=== PATIENT | female | born 1975 | race Caucasian/White ===

== ENCOUNTER 2017-08-18 16:15 | Inpatient (IN) | payer OTHER, MEDICAID ==
--- NOTE | 2017-08-18 17:22 | DR.GENAD ---
HPI - PCP Primary Care Physician: DONY - Complaint/Symptoms Chief Complaint Doctors Comments: Patient has been under the care of a asset availability leader and a wound care physician for the care of her left foot. She presents today with concern of red streaking across the plantar surface of her foot today. She denies trauma and has been getting Chief Complaint:: PT C/O/ LT 5TH DIGIT WOUND WITH RED STREAKING. PT IS CONCERNED ABOUT HAVING STAPH INFECTION WITH THE STREAKING - Source History Provided: Patient - Mode of Arrival Mode of Arrival: Wheelchair - Timing Onset of Chief Complaint: 08/17/17 PMH - PMH Past Medical History: Yes Past Medical History: Anxiety, Depression, Migraines, Hypothyroidism Past Medical History Comment: SPINA BIFIDA, BIPOLAR, Past Surgical History: Yes Surgical History: Abdominal Surgery, Cholecystectomy, Ortho Surgery Past Surgical History Comment: EYE SURGERY, BACK SURGERY, COLOSTOMY, SHUNT IN BRAIN - Family History History of Family Medical Conditions: Yes Family Medical History: Diabetes Mellitus, Cancer, [place], Hypertension - Social History Does any household member use tobacco: No Alcohol Use: None Do you use any recreational Drugs:: No Lives With: Family Lives Where: Home - infectious screening In the last 2 months have you had wt loss of >10#?: NO Have you had fever, night sweats or hemotysis?: No Have you traveled outside the country in the last 6 months?: No Isolation: Standard ROS - Review of Systems Constitutional: negative: Diaphoresis Eyes: No Symptoms Reported ENTM: No Symptoms Reported Respiratoy: No Symptoms Reported Cardiovascular: No Symptoms Reported Gastrointestinal/Abdominal: No Symptoms Reported Genitourinary: No Symptoms Reported Neurological: No Symptoms Reported Musculoskeletal: No Symptoms Reported Integumentary: Lesions (ulcerative lesion lateral aspect of left 5tg dugut) Hematologic/Lymphatic: No Symptoms Reported Endocrine: No Symptoms Reported Psychiatric: No Symptoms Reported All Other Systems: Reviewed and Negative PE - Vital Signs Vitals: Temperature 97.7 F Pulse Rate 111 Respiratory Rate 20 Blood Pressure [Left Arm] 108/68 Blood Pressure [Right Arm] 112/69 Blood Pressure 119/66 O2 Sat by Pulse Oximetry 95 - General Limitations: No Limitations General Appearance: Alert, In No Apparent Distress - Head Head Exam: Normal Inspection, Atraumatic - Eyes Eye exam: Normal Appearance, PERRL, EOMI - ENT ENT Exam: Normal Exam, Normal Oropharynx External Ear Exam: Normal External Inspection TM/Canal Exam: Bilateral Normal Nose Exam: Normal Nose Exam Mouth Exam: Normal Inspection Throat Exam: Normal Inspection - Neck Neck Exam: Normal Inspection, Full ROM - Chest Chest Inspection: Normal Inspection - Respiratory Respiratory Exam: Normal Lung Sounds Bilat Respiratory Exam: Bilateral Clear to Auscultation - Cardiovascular Cardiovascular Exam: Regular Rate, Normal Rhythm - Abdominal Exam Abdominal Exam: Normal Inspection Abdominal Tenderness: negative: RUQ, RLQ, LUQ, LLQ, Epigastrium, Suprapubic, Diffuse, Mild, Moderate, Severe, Other - Extremities Extremities Exam: Normal Inspection, Full ROM - Back Back Exam: Other (spina bifida lumbar area) - Neurologic Neurological Exam: Alert, Oriented X3, CN II-XII Intact - Psychiatric Psychiatric Exam: Normal Affect, Normal Mood - Skin Skin Exam: Warm, Dry. negative: Intact (ulcerative lesion of lateral aspect of 5th ditia with erythematous streaking across the plantar surface of the foot.) Course - Treatment Treatment: Patient given clindamycin 900mg IV in the ED recommended admisson for further care. - Reevaluation 1st: Unchanged - Consultation Called: 19:00 (Dr Holloway agree to admit for further treatment) ROR - Labs Reviewed Laboratory Results Reviewed?: Yes (hypokalemia) Result Diagrams: 08/18/17 17:40 08/18/17 17:40 Laboratory: WBC 6.1 X10^3/uL (3.6-10.0) 08/18/17 17:40 RBC 4.49 X10^6/uL (3.5-5.4) 08/18/17 17:40 Hgb 9.2 g/dL (12.0-16.0) L 08/18/17 17:40 Hct 29.9 % (36.0-47.0) L 08/18/17 17:40 MCV 66.7 fL (80.0-100.0) L 08/18/17 17:40 MCH 20.5 pg (27.0-34.0) L 08/18/17 17:40 MCHC 30.7 g/dL (33.0-35.0) L 08/18/17 17:40 RDW 20.0 % (11.6-16.5) H 08/18/17 17:40 Plt Count 214 X10^3/uL (150.0-450.0) 08/18/17 17:40 Plt Count Comment Adequate (ADEQUATE) 08/18/17 17:40 MPV 11.4 fL (7.4-11.0) H 08/18/17 17:40 Neut % 65.3 % (42.0-75.0) 08/18/17 17:40 Lymph % 27.4 % (21.0-51.0) 08/18/17 17:40 [place] % 6.4 % (0.0-13.0) 08/18/17 17:40 Eos % 0.1 % (0.9-2.9) L 08/18/17 17:40 Baso % 0.8 % (0.2-1.0) 08/18/17 17:40 Neut # 4.0 x10^3/uL (2.2-4.8) 08/18/17 17:40 Lymph # 1.7 X10^3/uL (1.3-2.9) 08/18/17 17:40 [place] # 0.4 x10^3/uL (0.3-0.8) 08/18/17 17:40 Eos # 0.0 x10^3/uL (0.0-0.2) 08/18/17 17:40 Baso # 0.1 X10^3/uL (0.0-0.1) 08/18/17 17:40 Absolute Nucleated RBC 0.1 /100WBC 08/18/17 17:40 Giant Platelets Few 08/18/17 17:40 Plt Morphology Comment Abnormal (NORMAL) A 08/18/17 17:40 RBC Morphology Abnormal (NORMAL) A 08/18/17 17:40 Hypochromasia 2+ A 08/18/17 17:40 Microcytosis 1+ A 08/18/17 17:40 Sodium 142 mmol/L (136-145) 08/18/17 17:40 Corrected Sodium TNP 08/18/17 17:40 Potassium 2.9 mmol/L (3.5-5.1) L* 08/18/17 17:40 Chloride 110 mmol/L (98-107) H 08/18/17 17:40 Carbon Dioxide 19.1 mmol/L (21-32) L 08/18/17 17:40 BUN 13 mg/dL (7-18) 08/18/17 17:40 Creatinine 0.71 mg/dL (0.55-1.02) 08/18/17 17:40 Est GFR (MDRD) Af Amer > 60 (>60) 08/18/17 17:40 Est GFR (MDRD) Non-Af > 60 (>60) 08/18/17 17:40 Glucose 95 mg/dL (65-99) 08/18/17 17:40 Calcium 8.2 mg/dL (8.5-10.1) L 08/18/17 17:40 C-Reactive Protein 15.00 mg/L (0-3.0) H 08/18/17 17:40 - XRAY XRAY Interpreted by: Radiologist - Diagnosis Discharge Problem: Acute lymphangitis of foot, except toe, Hypokalemia - Discharge Plan Condition: Stable - Follow ups/Referrals Follow ups/Referrals: Chilo Christianson [Primary Care Provider] - 3 days - Instructions
[2017-08-18] MEDS ORDERED: CLEOCIN 300 MG IV PREMIX 300 MG/50 ML BAG IV ONE ×2 (17:24→17:27)
[2017-08-18] MEDS ORDERED: CLEOCIN 600 MG IV PREMIX 600 MG/50 ML BAG IV ONE (17:24)
[2017-08-18] MEDS ORDERED: NS 100 ML IV 100 ML IV ONE (17:27)
[2017-08-18] MEDS ORDERED: CLEOCIN VIAL 600 MG ONE (17:50)
[2017-08-18 18:02] LABS: BASOPHILS # (AUTO) 0.1 X10^3/uL (0.0-0.1); EOSINOPHILS % (AUTO) 0.1 % (0.9-2.9); MONOCYTES # (AUTO) 0.4 x10^3/uL (0.3-0.8)
[2017-08-18 18:13] LABS: BLOOD UREA NITROGEN 13 mg/dL (7-18); CALCIUM 8.2 mg/dL (8.5-10.1); CARBON DIOXIDE 19.1 mmol/L (21-32); CHLORIDE 110 mmol/L (98-107); CREATININE 0.71 mg/dL (0.55-1.02); SODIUM 142 mmol/L (136-145); eGFR BLACK RACES > 60 (>60); eGFR NON BLACK RACES > 60 (>60)
[2017-08-18 18:17] LABS: BASOPHILS % (AUTO) 0.8 % (0.2-1.0); HEMATOCRIT 29.9 % (36.0-47.0); HEMOGLOBIN 9.2 g/dL (12.0-16.0); LYMPHOCYTES # (AUTO) 1.7 X10^3/uL (1.3-2.9); LYMPHOCYTES % (AUTO) 27.4 % (21.0-51.0); MEAN CORPUSCULAR HEMOGLOBIN 20.5 pg (27.0-34.0); MEAN CORPUSCULAR HGB CONC 30.7 g/dL (33.0-35.0); MEAN CORPUSCULAR VOLUME 66.7 fL (80.0-100.0); MEAN PLATELET VOLUME 11.4 fL (7.4-11.0); MONOCYTES % (AUTO) 6.4 % (0.0-13.0); NEUTROPHILS % (AUTO) 65.3 % (42.0-75.0); PLATELET COUNT 214 X10^3/uL (150.0-450.0); RED BLOOD COUNT 4.49 X10^6/uL (3.5-5.4); WHITE BLOOD COUNT 6.1 X10^3/uL (3.6-10.0)
[2017-08-18 18:20] LABS: GIANT PLATELET FEW; PLATELET MORPHOLOGY COMMENT ABNORMAL (NORMAL)
[2017-08-18 18:21] LABS: HYPOCHROMASIA 2+; MICROCYTOSIS 1+
[2017-08-18] MEDS ORDERED: K-LYTE EFFERVESCENT PO STA (19:49)
[2017-08-18] MEDS ORDERED: K-LYTE EFFERVESCENT ONE (19:50)
[2017-08-18] MEDS ORDERED: NS 1000 ML 1,000 ML with POTASSIUM CHLORIDE INJ 20 MEQ VIAL 20 MEQ IV SCH ×2 (21:00)
[2017-08-18] MEDS: MORPHINE SULFATE INJ 2 MG INJ IVP PRN (21:42)
[2017-08-18] MEDS: NS + KCL 20 MEQ/L 1,000 ML IV SCH (22:23)
[2017-08-19 01:54] LABS: BILIRUBIN,URINE NEGATIVE (NEGATIVE); BLOOD/HEMOGLOBIN,URINE 1+ (NEGATIVE); GLUCOSE, URINE NEGATIVE (NEGATIVE); KETONES,URINE NEGATIVE (NEGATIVE); LEUKOCYTE ESTERASE ,URINE 1+ (NEGATIVE); NITRITES,URINE POSITIVE (NEGATIVE); PROTEIN,URINE 2+ (NEGATIVE); UROBILINOGEN,URINE 1+ (NORMAL)
[2017-08-19 02:02] LABS: APPEARANCE,URINE CLEAR (CLEAR); BACTERIA,URINE 3+ /HPF (NEGATIVE); COLOR,URINE YELLOW (YELLOW); SQUAMOUS EPITHELIAL CELL,UR FEW /HPF (NEGATIVE)
[2017-08-19 03:31] VITALS: BMI 45.1
[2017-08-19] MEDS: NS + KCL 20 MEQ/L 1,000 ML IV SCH ×3 (05:23→22:59)
[2017-08-19 05:30] LABS: BASOPHILS % (AUTO) 0.4 % (0.2-1.0); EOSINOPHILS % (AUTO) 0.1 % (0.9-2.9); HEMATOCRIT 26.3 % (36.0-47.0); LYMPHOCYTES # (AUTO) 1.5 X10^3/uL (1.3-2.9); LYMPHOCYTES % (AUTO) 29.8 % (21.0-51.0); MEAN CORPUSCULAR HGB CONC 30.3 g/dL (33.0-35.0); MEAN PLATELET VOLUME 10.6 fL (7.4-11.0); MONOCYTES # (AUTO) 0.4 x10^3/uL (0.3-0.8); MONOCYTES % (AUTO) 8.3 % (0.0-13.0); NEUTROPHILS % (AUTO) 61.4 % (42.0-75.0); PLATELET COUNT 204 X10^3/uL (150.0-450.0); RED BLOOD COUNT 3.99 X10^6/uL (3.5-5.4); RED CELL DISTRIBUTION WIDTH 19.6 % (11.6-16.5); WHITE BLOOD COUNT 4.9 X10^3/uL (3.6-10.0)
[2017-08-19 05:40] LABS: PLATELET MORPHOLOGY COMMENT NORMAL (NORMAL)
[2017-08-19 05:41] LABS: HYPOCHROMASIA 2+; MICROCYTOSIS 1+; OVALOCYTES PRESENT; POIKILOCYTOSIS 1+; TEAR DROP CELLS PRESENT
[2017-08-19 05:42] LABS: ALANINE AMINOTRANSFERASE 29 Units/L (12-78); ALBUMIN 2.8 g/dL (3.4-5.0); ALKALINE PHOSPHATASE 208 Units/L (46-116); ASPARTATE AMINO TRANSFERASE 19 Units/L (15-37); BLOOD UREA NITROGEN 11 mg/dL (7-18); CALCIUM 7.6 mg/dL (8.5-10.1); CARBON DIOXIDE 19.3 mmol/L (21-32); CHLORIDE 112 mmol/L (98-107); COR CA(FOR HYPOALB) 8.6 mg/dL (8.5-10.1); SODIUM 143 mmol/L (136-145); TOTAL PROTEIN 6.1 g/dL (6.4-8.2); eGFR BLACK RACES > 60 (>60); eGFR NON BLACK RACES > 60 (>60)
[2017-08-19] MEDS: MORPHINE SULFATE INJ 2 MG INJ IVP PRN ×2 (06:53→22:30)
[2017-08-19] MEDS: TEFLARO 600 MG in NS 50 ML IV 50 ML IV SCH ×2 (14:00→21:25)
[2017-08-19] MEDS ORDERED: PHENERGAN INJ 25 MG ONE (17:44)
[2017-08-19] MEDS: PHENERGAN INJ 25 MG IV PRN ×2 (17:50→23:50)
[2017-08-20] MEDS ORDERED: MORPHINE SULFATE INJ 2 MG INJ ONE ×2 (02:27→08:51)
[2017-08-20] MEDS: MORPHINE SULFATE INJ 2 MG INJ IVP PRN ×2 (02:40→09:00)
[2017-08-20 05:36] LABS: ALANINE AMINOTRANSFERASE 18 Units/L (12-78); ALBUMIN 2.5 g/dL (3.4-5.0); ALKALINE PHOSPHATASE 149 Units/L (46-116); ASPARTATE AMINO TRANSFERASE 12 Units/L (15-37); BLOOD UREA NITROGEN 8 mg/dL (7-18); CALCIUM 7.6 mg/dL (8.5-10.1); CARBON DIOXIDE 18.3 mmol/L (21-32); COR CA(FOR HYPOALB) 8.8 mg/dL (8.5-10.1); CREATININE 0.61 mg/dL (0.55-1.02); SODIUM 146 mmol/L (136-145); TOTAL PROTEIN 5.4 g/dL (6.4-8.2); eGFR BLACK RACES > 60 (>60); eGFR NON BLACK RACES > 60 (>60)
[2017-08-20 05:37] LABS: BASOPHILS % (AUTO) 0.4 % (0.2-1.0); EOSINOPHILS % (AUTO) 0.1 % (0.9-2.9); HEMATOCRIT 22.4 % (36.0-47.0); LYMPHOCYTES # (AUTO) 1.3 X10^3/uL (1.3-2.9); MEAN CORPUSCULAR HEMOGLOBIN 19.9 pg (27.0-34.0); MEAN CORPUSCULAR HGB CONC 30.2 g/dL (33.0-35.0); MEAN CORPUSCULAR VOLUME 65.8 fL (80.0-100.0); MEAN PLATELET VOLUME 10.8 fL (7.4-11.0); MONOCYTES # (AUTO) 0.3 x10^3/uL (0.3-0.8); MONOCYTES % (AUTO) 7.5 % (0.0-13.0); NEUTROPHILS # (AUTO) 2.6 x10^3/uL (2.2-4.8); PLATELET COUNT 220 X10^3/uL (150.0-450.0); RED BLOOD COUNT 3.41 X10^6/uL (3.5-5.4); RED CELL DISTRIBUTION WIDTH 19.5 % (11.6-16.5); WHITE BLOOD COUNT 4.2 X10^3/uL (3.6-10.0)
[2017-08-20 05:48] LABS: HEMOGLOBIN 6.8 g/dL (12.0-16.0)
[2017-08-20 05:51] LABS: CHLORIDE 118 mmol/L (98-107)
[2017-08-20 06:16] LABS: PLATELET MORPHOLOGY COMMENT NORMAL (NORMAL)
[2017-08-20 06:17] LABS: ANISOCYTOSIS SLIGHT; HYPOCHROMASIA 3+; MICROCYTOSIS 1+; POIKILOCYTOSIS SLIGHT
[2017-08-20] MEDS: NS + KCL 20 MEQ/L 1,000 ML IV SCH ×3 (06:52→23:20)
[2017-08-20] MEDS: PHENERGAN INJ 25 MG IV PRN ×2 (07:30→13:29)
[2017-08-20] MEDS: TEFLARO 600 MG in NS 50 ML IV 50 ML IV SCH ×2 (10:26→20:58)
[2017-08-20] MEDS ORDERED: ZOFRAN INJ 4 MG VIAL IVP PRN (11:13)
[2017-08-20] MEDS ORDERED: ZOFRAN INJ 4 MG VIAL ONE (11:14)
[2017-08-20] MEDS: ZINC SULFATE PO SCH (13:28)
[2017-08-20] MEDS: VITAMIN C PO SCH (13:28)
--- NOTE | 2017-08-20 14:26 | DR.H&P ---
H&P - History & Physical for Day of: H&P Date: 08/18/17 - Chief Complaint Chief Complaint: LEFT FOOT WOUND WITH INCREASED REDNESS AND SWELLING - Allergies Allergies/Adverse Reactions: Allergies Allergy/AdvReac Type Severity Reaction Status Date / Time Latex, Natural Rubber Allergy Verified 08/18/17 21:27 - Past Medical History Past Medical History: Anxiety, Depression, Migraines, Hypothyroidism - Past Surgical History Surgical History: Cholecystectomy, Ortho Surgery, Other - Family History Family Medical History: Diabetes Mellitus, Cancer, [place], Hypertension - Social History Does patient currently use any type of tobacco product: No Have you used tobacco products in the last 12 months: No Type of Tobacco Use: None Does any household member use tobacco: No Alcohol Use: None Drug Use: None - Medications Home Medications: Levothyroxine Sodium 100 mcg PO DAILY 08/18/17 [History Confirmed 08/18/17] Promethazine HCl 1 tab PO PRN PRN 08/18/17 [History Confirmed 08/18/17] Sumatriptan Succinate [Sumatriptan Succinate inj (VIAL)] 0.5 ml PRN PRN [History Confirmed 08/19/17] Tapentadol HCl [Nucynta] 150 mg PO BID 08/18/17 [History Confirmed 08/18/17] - Review of Systems Constitutional: Malaise Eyes: No Symptoms Reported ENT: No Symptoms Reported Respiratory: No Symptoms Reported Cardiovascular: No Symptoms Reported Gastrointestinal: No Symptoms Reported Genitourinary: Incontinence Musculoskeletal: Shoulder Pain, Back Pain Skin: Wound (LEFT FOOT) Neurological: Weakness - Physical Exam Vital Signs: Temperature 99.3 F Pulse Rate [Right Radial] 89 Pulse Rate 111 Respiratory Rate 20 Blood Pressure [Left Arm] 132/74 Blood Pressure [Right Arm] 109/59 Blood Pressure 119/66 O2 Sat by Pulse Oximetry 98 Oriented: Normal Eyes: Normal Ear: Normal Nose: Normal Throat: Normal Respiratory: Clear Throughout Cardiovascular: Normal, Edema : Normal Auscultation: Bowel Sounds: Normal Palpation: Normal Tenderness: Normal Skin: Wound (RIGHT HIP. LEFT FOOT) Musculoskeletal: Back:Lumbar, Motor Deficit, Sensory Deficit Psychiatric: Depression Mood Description: Flat Affect: Depressed, Flat Speech Pattern: Clear - Assessment/Plan (1) Infected ulcer of skin Status: Acute Plan: RIGHT HIP AND LEFT FOOT, IV ATBX THERAPY. BLOOD, URINE AND WOUND CULTURES. AM LABS, RESUME HOME MEDS. ELEVATE LLE (2) Infected stasis ulcer of left lower extremity Status: Acute (3) History of spina bifida Status: Acute (4) YVETTE (generalized anxiety disorder) Status: Chronic (5) Hypothyroidism Status: Chronic (6) MDD (major depressive disorder) Status: Chronic
--- NOTE | 2017-08-20 14:31 | PCM.PROG ---
Progress Note - Progress Note for Day of Date: 08/20/17 - Subjective Subjective: CO PAIN ALL OVER, DIDNT REST WELL LAST NIGHT. FAMILY MEMBER STATES PT HAS BEEN RESTLESS WITH CO PAIN. PT REFUSING SURGICAL CONSULT FOR DEBRIDEMENT ASSEMENT TO WOUND ON LLE, WOUND CULTURE PENDING. PT HAS UTI, WILL CONTINE CURRENT MEDICAITON REGIMEN AND RE-EVALUATE AFTER CULTURES. PT HGB 6.8, PLAN TO TYPE AND CROSS FOR TRANSFUSION ONE UNIT PRBC SLOW WITH CXR PRIOR TO INFUSION - Past Medical Family Social History Past Med/Fam/Surg Hx: No changes since H&P Allergies: Allergies Latex, Natural Rubber Allergy (Verified 08/18/17 21:27) - Review of Systems ROS: No change since H&P - Vital Signs and I&O's Vital Signs: Temperature 99.3 F Pulse Rate [Right Radial] 89 Pulse Rate 111 Respiratory Rate 20 Blood Pressure [Left Arm] 132/74 Blood Pressure [Right Arm] 109/59 Blood Pressure 119/66 O2 Sat by Pulse Oximetry 98 Intake and Output: Intake & Output 08/18/17 08/19/17 08/20/17 08/21/17 11:59 11:59 11:59 11:59 Intake Total 1025 2422 Output Total 700 Balance 1025 1722 - Physical Exam Oriented: Normal Eyes: Normal Ear: Normal Nose: Normal Throat: Normal Cardiovascular: Normal, Edema : Normal Auscultation: Bowel Sounds: Normal Tenderness: Normal Skin: Wound (RIGHT HIP, 3CM OVAL SHAPED SKIN ULCERATION WITH PURULENT DC, 2CM LEFT FOOT ULCERATION WITH LOCALIZED REDNESS AND RED STREAK FROM WOUND AROUND TO SOLE OF FOOT) Musculoskeletal: Back:Lumbar, Motor Deficit, Sensory Deficit Psychiatric: Depression Mood Description: Flat Affect: Depressed, Flat Speech Pattern: Clear - Laboratory and Diagnostics Result Diagrams: 08/20/17 04:35 08/20/17 04:35 Labs: 08/20/17 11:25 Hip - Right Gram Stain - Final 08/19/17 01:21 Urine,Catheterized Urine Culture - Preliminary 08/18/17 23:50 Foot - Left Gram Stain - Final 08/18/17 23:50 Foot - Left Wound Culture - Preliminary 08/18/17 17:45 Blood Blood Culture - Preliminary 08/18/17 17:40 Blood Blood Culture - Preliminary Laboratory WBC 4.2 X10^3/uL (3.6-10.0) 08/20/17 04:35 RBC 3.41 X10^6/uL (3.5-5.4) L 08/20/17 04:35 Hgb 6.8 g/dL (12.0-16.0) L* 08/20/17 04:35 Hct 22.4 % (36.0-47.0) L 08/20/17 04:35 MCV 65.8 fL (80.0-100.0) L 08/20/17 04:35 MCH 19.9 pg (27.0-34.0) L 08/20/17 04:35 MCHC 30.2 g/dL (33.0-35.0) L 08/20/17 04:35 RDW 19.5 % (11.6-16.5) H 08/20/17 04:35 Plt Count 220 X10^3/uL (150.0-450.0) 08/20/17 04:35 Plt Count Comment Adequate (ADEQUATE) 08/20/17 04:35 MPV 10.8 fL (7.4-11.0) 08/20/17 04:35 Neut % 62.0 % (42.0-75.0) 08/20/17 04:35 Lymph % 30.0 % (21.0-51.0) 08/20/17 04:35 [place] % 7.5 % (0.0-13.0) 08/20/17 04:35 Eos % 0.1 % (0.9-2.9) L 08/20/17 04:35 Baso % 0.4 % (0.2-1.0) 08/20/17 04:35 Neut # 2.6 x10^3/uL (2.2-4.8) 08/20/17 04:35 Lymph # 1.3 X10^3/uL (1.3-2.9) 08/20/17 04:35 [place] # 0.3 x10^3/uL (0.3-0.8) 08/20/17 04:35 Eos # 0.0 x10^3/uL (0.0-0.2) 08/20/17 04:35 Baso # 0.0 X10^3/uL (0.0-0.1) 08/20/17 04:35 Absolute Nucleated RBC 0.0 /100WBC 08/20/17 04:35 Giant Platelets Few 08/18/17 17:40 Plt Morphology Comment Normal (NORMAL) 08/20/17 04:35 RBC Morphology Abnormal (NORMAL) A 08/20/17 04:35 Hypochromasia 3+ A 08/20/17 04:35 Poikilocytosis Slight A 08/20/17 04:35 Anisocytosis Slight A 08/20/17 04:35 Microcytosis 1+ A 08/20/17 04:35 Tear Drop Cells Present 08/19/17 05:10 Ovalocytes Present 08/19/17 05:10 Sodium 146 mmol/L (136-145) H 08/20/17 04:35 Corrected Sodium TNP 08/20/17 04:35 Potassium 3.6 mmol/L (3.5-5.1) 08/20/17 04:35 Chloride 118 mmol/L (98-107) H* 08/20/17 04:35 Carbon Dioxide 18.3 mmol/L (21-32) L 08/20/17 04:35 BUN 8 mg/dL (7-18) 08/20/17 04:35 Creatinine 0.61 mg/dL (0.55-1.02) 08/20/17 04:35 Est GFR (MDRD) Af Amer > 60 (>60) 08/20/17 04:35 Est GFR (MDRD) Non-Af > 60 (>60) 08/20/17 04:35 Glucose 96 mg/dL (65-99) 08/20/17 04:35 Calcium 7.6 mg/dL (8.5-10.1) L 08/20/17 04:35 Corrected Calcium 8.8 mg/dL (8.5-10.1) 08/20/17 04:35 Total Bilirubin 0.20 mg/dL (0.2-1.0) 08/20/17 04:35 AST 12 Units/L (15-37) L 08/20/17 04:35 ALT 18 Units/L (12-78) 08/20/17 04:35 Alkaline Phosphatase 149 Units/L (46-116) H 08/20/17 04:35 C-Reactive Protein 15.00 mg/L (0-3.0) H 08/18/17 17:40 Total Protein 5.4 g/dL (6.4-8.2) L 08/20/17 04:35 Albumin 2.5 g/dL (3.4-5.0) L 08/20/17 04:35 Globulin 2.9 g/dL (2.5-4.5) 08/20/17 04:35 Albumin/Globulin Ratio 0.9 Ratio (1.1-2.1) L 08/20/17 04:35 Specimen Type Catherized urine 08/19/17 01:21 Urine Color Yellow (YELLOW) 08/19/17 01:21 Urine Appearance Clear (CLEAR) 08/19/17 01:21 Urine pH 6.0 (5.0 - 8.0) 08/19/17 01:21 Ur Specific [place] 1.020 (1.000-1.030) 08/19/17 01:21 Urine Protein 2+ (NEGATIVE) 08/19/17 01:21 Urine Glucose (UA) Negative (NEGATIVE) 08/19/17 01:21 Urine Ketones Negative (NEGATIVE) 08/19/17 01:21 Urine Occult Blood 1+ (NEGATIVE) 08/19/17 01:21 Urine Nitrite Positive (NEGATIVE) 08/19/17 01:21 Urine Bilirubin Negative (NEGATIVE) 08/19/17 01:21 Urine Urobilinogen 1+ (NORMAL) 08/19/17 01:21 Ur Leukocyte Esterase 1+ (NEGATIVE) 08/19/17 01:21 Urine RBC 2-5 /HPF (NEGATIVE) 08/19/17 01:21 Urine WBC 6-12 /HPF (NEGATIVE) 08/19/17 01:21 Ur Squamous Epith Cells Few /HPF (NEGATIVE) 08/19/17 01:21 Urine Bacteria 3+ /HPF (NEGATIVE) 08/19/17 01:21 Ur Culture Indicated? Yes/culture set up 08/19/17 01:21 - Plan (1) Infected ulcer of skin Status: Acute Plan: RIGHT HIP AND LEFT FOOT, IV ATBX THERAPY. BLOOD, URINE AND WOUND CULTURES PENDING. AM LABS, RESUME HOME MEDS. ELEVATE LLE, FOOT XRAY TODAY AND BILATERAL VENOUS DOPPLER (2) Infected stasis ulcer of left lower extremity Status: Acute (3) History of spina bifida Status: Acute (4) YVETTE (generalized anxiety disorder) Status: Chronic (5) Hypothyroidism Status: Chronic (6) MDD (major depressive disorder) Status: Chronic (7) UTI (urinary tract infection) Status: Acute Plan: URINE CULTURE PENDING, CONTINUE IV ATBX
--- NOTE | 2017-08-20 14:45 | RAD ---
Examination: Portable AP chest History: CHF Comparison reference 07/10/2014 Findings: Continued normal heart size.The lungs and pleural spaces are essentially clear. There is a surgical shunt tube projected over the right neck and right chest. There is a rounded retrocardiac de nsity present. Impression: No acute cardiopulmonary lesion evident. Retrocardiac density may represent hiatal hernia . This could be confirmed with additional imaging to exclude other etiology. Reported By:
[2017-08-20] MEDS: MORPHINE SULFATE INJ 4 MG IVP PRN (15:00)
--- NOTE | 2017-08-20 15:43 | RAD ---
Examination: Left foot, three views History: Cellulitis Findings: There is no evidence for osteomyelitis. There is marked soft tissue edema involving the low er leg, ankle and foot. There is a fracture involving the proximal phalanx of the 5th toe. This may b e subacute. No articular deformity is demonstrated. Impression: Marked nonspecific soft tissue swelling. There is no evidence for bone infection. Suspect fracture proximal phalanx 5th toe, correlate clinically. Reported By:
[2017-08-20] MEDS: NEURONTIN CAP 300 MG PO SCH ×2 (16:16→22:14)
[2017-08-20] MEDS: BUSPAR PO SCH ×2 (16:16→22:14)
--- NOTE | 2017-08-20 16:59 | VAS ---
HISTORY: Lower extremity edema. Study: Bilateral lower extremity ultrasound. Comparison: None available. TECHNIQUE: Multiple solis scale and color flow Doppler images of the deep venous system were obtained of the right and left lower extremity. FINDINGS: The deep venous system of the right and left lower extremities were evaluated from the level of the c ommon femoral vein through the popliteal vein. Occlusive clot is seen within right lower extremity fr om the proximal superficial femoral vein to the popliteal vein and within the left lower extremity fr om the mid superficial femoral vein to the popliteal vein. The bilateral common femoral veins and the left proximal superficial femoral vein demonstrate normal color flow and compression. IMPRESSION: Bilateral lower extremity occlusive clot as above. Reported By:
[2017-08-20 18:17] LABS: HEMATOCRIT 26.2 % (36.0-47.0); HEMOGLOBIN 7.9 g/dL (12.0-16.0)
[2017-08-20 19:13] LABS: IRON 14 ug/dL (50-175); TOTAL IRON BINDING CAPACITY 292 ug/dL (250-450); TRANSFERRIN 221 mg/dL (202-364)
[2017-08-20] MEDS: PROTONIX INJ 40 MG VIAL IVP SCH (20:58)
[2017-08-20] MEDS ORDERED: TAPENTADOL HCL 150 MG PO SCH (21:00)
[2017-08-20] MEDS: VISTARIL PO PRN (22:14)
[2017-08-21] MEDS: NS + KCL 20 MEQ/L 1,000 ML IV SCH ×4 (00:56→13:40)
[2017-08-21] MEDS: MORPHINE SULFATE INJ 4 MG IVP PRN (04:36)
[2017-08-21 06:06] LABS: BASOPHILS % (AUTO) 0.4 % (0.2-1.0); EOSINOPHILS % (AUTO) 0.1 % (0.9-2.9); HEMATOCRIT 23.7 % (36.0-47.0); HEMOGLOBIN 7.2 g/dL (12.0-16.0); LYMPHOCYTES # (AUTO) 1.6 X10^3/uL (1.3-2.9); LYMPHOCYTES % (AUTO) 35.4 % (21.0-51.0); MEAN CORPUSCULAR HGB CONC 30.5 g/dL (33.0-35.0); MEAN CORPUSCULAR VOLUME 65.7 fL (80.0-100.0); MONOCYTES # (AUTO) 0.3 x10^3/uL (0.3-0.8); MONOCYTES % (AUTO) 7.6 % (0.0-13.0); NEUTROPHILS # (AUTO) 2.5 x10^3/uL (2.2-4.8); NEUTROPHILS % (AUTO) 56.5 % (42.0-75.0); PLATELET COUNT 207 X10^3/uL (150.0-450.0); RED CELL DISTRIBUTION WIDTH 19.5 % (11.6-16.5); WHITE BLOOD COUNT 4.5 X10^3/uL (3.6-10.0)
[2017-08-21 06:08] LABS: ALANINE AMINOTRANSFERASE 16 Units/L (12-78); ALBUMIN 2.6 g/dL (3.4-5.0); ALKALINE PHOSPHATASE 137 Units/L (46-116); ASPARTATE AMINO TRANSFERASE 8 Units/L (15-37); BLOOD UREA NITROGEN 5 mg/dL (7-18); CALCIUM 7.7 mg/dL (8.5-10.1); CARBON DIOXIDE 16.3 mmol/L (21-32); COR CA(FOR HYPOALB) 8.8 mg/dL (8.5-10.1); CREATININE 0.55 mg/dL (0.55-1.02); SODIUM 145 mmol/L (136-145); TOTAL PROTEIN 5.6 g/dL (6.4-8.2); eGFR BLACK RACES > 60 (>60); eGFR NON BLACK RACES > 60 (>60)
[2017-08-21 06:14] LABS: CHLORIDE 117 mmol/L (98-107)
[2017-08-21 07:03] LABS: HYPOCHROMASIA 2+; MICROCYTOSIS 2+; PLATELET MORPHOLOGY COMMENT NORMAL (NORMAL)
[2017-08-21] MEDS ORDERED: PATIENT'S HOME MEDICATION (Dexlansoprazole [Dexilant] 60 MG) PO SCH (09:00)
[2017-08-21] MEDS ORDERED: PROTONIX TAB 40 MG PO SCH (09:00)
[2017-08-21] MEDS: SEROquel TAB 100 MG PO SCH (09:01)
[2017-08-21] MEDS: ZINC SULFATE PO SCH (09:03)
[2017-08-21] MEDS: PROTONIX INJ 40 MG VIAL IVP SCH ×2 (09:03→21:01)
[2017-08-21] MEDS: WELLBUTRIN XL 300 MG (DAILY) PO SCH (09:03)
[2017-08-21] MEDS: SYNTHROID 100 mcg TAB PO SCH (09:04)
[2017-08-21] MEDS: TEFLARO 600 MG in NS 50 ML IV 50 ML IV SCH (09:04)
[2017-08-21] MEDS: BUSPAR PO SCH ×2 (09:04→21:02)
[2017-08-21] MEDS: TOPAMAX TAB 100 MG PO SCH (09:04)
[2017-08-21] MEDS: VITAMIN C PO SCH (09:04)
[2017-08-21] MEDS: NEURONTIN CAP 300 MG PO SCH ×2 (09:15→21:02)
[2017-08-21] MEDS: PHENERGAN INJ 25 MG IV PRN (09:15)
[2017-08-21] MEDS: DIFLUNISAL 500 MG PO SCH (09:18)
[2017-08-21] MEDS ORDERED: NS 100 ML IV 100 ML with VENOFER 400 MG IV NR ×2 (10:00)
[2017-08-21] MEDS: GENTAMICIN INJ 120 MG in NS 100 ML IV 100 ML IV SCH ×2 (11:34→21:01)
[2017-08-21] MEDS ORDERED: PROMETHAZINE HCL PO PRN (13:31)
[2017-08-21 18:23] LABS: HEMOGLOBIN 7.4 g/dL (12.0-16.0)
[2017-08-21] MEDS: TEFLARO 600 MG in NS 100 ML IV + SPIKE MINIBAG* 100 ML IV SCH (21:00)
[2017-08-21] MEDS ORDERED: BUPROPION HCL 150 MG PO SCH (21:00)
[2017-08-21] MEDS: WELLBUTRIN XL 150 MG (DAILY) PO SCH (21:01)
[2017-08-21] MEDS: VISTARIL PO PRN (21:01)
[2017-08-21] MEDS: LOVENOX INJ 120 MG SYR SC SCH (21:02)
[2017-08-21] MEDS: PHARMACY CONSULT - DOSE _____ XX SCH (21:12)
[2017-08-22] MEDS: MORPHINE SULFATE INJ 4 MG IVP PRN ×2 (02:05→22:49)
[2017-08-22 04:50] LABS: ALANINE AMINOTRANSFERASE 15 Units/L (12-78); ALBUMIN 2.6 g/dL (3.4-5.0); ALKALINE PHOSPHATASE 130 Units/L (46-116); ASPARTATE AMINO TRANSFERASE 7 Units/L (15-37); BLOOD UREA NITROGEN 9 mg/dL (7-18); CALCIUM 7.6 mg/dL (8.5-10.1); CARBON DIOXIDE 18.1 mmol/L (21-32); COR CA(FOR HYPOALB) 8.7 mg/dL (8.5-10.1); CREATININE 0.79 mg/dL (0.55-1.02); SODIUM 146 mmol/L (136-145); TOTAL PROTEIN 5.7 g/dL (6.4-8.2); eGFR BLACK RACES > 60 (>60); eGFR NON BLACK RACES > 60 (>60)
[2017-08-22 05:06] LABS: CHLORIDE 117 mmol/L (98-107)
[2017-08-22 05:08] LABS: BASOPHILS % (AUTO) 0.4 % (0.2-1.0); HEMATOCRIT 23.6 % (36.0-47.0); HEMOGLOBIN 7.2 g/dL (12.0-16.0); LYMPHOCYTES # (AUTO) 1.5 X10^3/uL (1.3-2.9); LYMPHOCYTES % (AUTO) 24.6 % (21.0-51.0); MEAN CORPUSCULAR HEMOGLOBIN 19.8 pg (27.0-34.0); MEAN CORPUSCULAR HGB CONC 30.4 g/dL (33.0-35.0); MEAN CORPUSCULAR VOLUME 65.1 fL (80.0-100.0); MEAN PLATELET VOLUME 10.5 fL (7.4-11.0); MONOCYTES # (AUTO) 0.5 x10^3/uL (0.3-0.8); MONOCYTES % (AUTO) 7.9 % (0.0-13.0); NEUTROPHILS # (AUTO) 4.1 x10^3/uL (2.2-4.8); NEUTROPHILS % (AUTO) 67.1 % (42.0-75.0); PLATELET COUNT 226 X10^3/uL (150.0-450.0); RED BLOOD COUNT 3.62 X10^6/uL (3.5-5.4); WHITE BLOOD COUNT 6.1 X10^3/uL (3.6-10.0)
[2017-08-22 05:28] LABS: ANISOCYTOSIS 1+; HYPOCHROMASIA 3+; MICROCYTOSIS 1+; PLATELET MORPHOLOGY COMMENT NORMAL (NORMAL)
[2017-08-22] MEDS: NS + KCL 20 MEQ/L 1,000 ML IV SCH ×2 (06:03→10:05)
[2017-08-22] MEDS: GENTAMICIN INJ 120 MG in NS 100 ML IV 100 ML IV SCH ×2 (10:05→22:45)
[2017-08-22] MEDS: SEROquel TAB 100 MG PO SCH (10:05)
[2017-08-22] MEDS: NEURONTIN CAP 300 MG PO SCH ×2 (10:07→21:24)
[2017-08-22] MEDS: BUSPAR PO SCH ×2 (10:07→21:24)
[2017-08-22] MEDS: WELLBUTRIN XL 300 MG (DAILY) PO SCH (10:07)
[2017-08-22] MEDS: PHENERGAN TAB 25 MG PO PRN (10:08)
[2017-08-22] MEDS: ZINC SULFATE PO SCH (10:08)
[2017-08-22] MEDS: VITAMIN C PO SCH (10:08)
[2017-08-22] MEDS: SYNTHROID 100 mcg TAB PO SCH (10:08)
[2017-08-22] MEDS: TOPAMAX TAB 100 MG PO SCH (10:09)
[2017-08-22] MEDS: DIFLUNISAL 500 MG PO SCH (10:09)
[2017-08-22] MEDS: LOVENOX INJ 120 MG SYR SC SCH ×2 (10:12→21:25)
[2017-08-22] MEDS: PROTONIX INJ 40 MG VIAL IVP SCH ×2 (10:16→21:25)
[2017-08-22] MEDS ORDERED: LASIX IVP ONE (10:23)
[2017-08-22] MEDS: PHENERGAN INJ 25 MG IV PRN (11:53)
[2017-08-22] MEDS: TEFLARO 600 MG in NS 100 ML IV + SPIKE MINIBAG* 100 ML IV SCH ×2 (11:56→21:22)
[2017-08-22] MEDS ORDERED: DULCOLAX SUPPOSITORY 10 MG RECTAL ONE (13:07)
[2017-08-22] MEDS: WELLBUTRIN XL 150 MG (DAILY) PO SCH (21:24)
[2017-08-22] MEDS: PHARMACY COMMENT IV SCH ×3 (21:25→22:47)
[2017-08-23] MEDS: PHENERGAN INJ 25 MG IV PRN ×2 (00:40→09:00)
[2017-08-23] MEDS: GENTAMICIN INJ 120 MG in NS 100 ML IV 100 ML IV SCH ×2 (02:13→09:00)
[2017-08-23 06:23] LABS: BASOPHILS % (AUTO) 0.7 % (0.2-1.0); EOSINOPHILS % (AUTO) 0.1 % (0.9-2.9); HEMOGLOBIN 7.7 g/dL (12.0-16.0); LYMPHOCYTES # (AUTO) 1.7 X10^3/uL (1.3-2.9); LYMPHOCYTES % (AUTO) 34.3 % (21.0-51.0); MEAN CORPUSCULAR HGB CONC 30.8 g/dL (33.0-35.0); MEAN CORPUSCULAR VOLUME 64.9 fL (80.0-100.0); MONOCYTES # (AUTO) 0.3 x10^3/uL (0.3-0.8); MONOCYTES % (AUTO) 6.7 % (0.0-13.0); NEUTROPHILS # (AUTO) 2.9 x10^3/uL (2.2-4.8); NEUTROPHILS % (AUTO) 58.2 % (42.0-75.0); PLATELET COUNT 208 X10^3/uL (150.0-450.0); RED BLOOD COUNT 3.85 X10^6/uL (3.5-5.4); RED CELL DISTRIBUTION WIDTH 19.7 % (11.6-16.5)
[2017-08-23 06:37] LABS: ALANINE AMINOTRANSFERASE 13 Units/L (12-78); ALBUMIN 2.7 g/dL (3.4-5.0); ALKALINE PHOSPHATASE 125 Units/L (46-116); ASPARTATE AMINO TRANSFERASE 7 Units/L (15-37); BLOOD UREA NITROGEN 7 mg/dL (7-18); CALCIUM 7.9 mg/dL (8.5-10.1); CARBON DIOXIDE 18.6 mmol/L (21-32); CHLORIDE 114 mmol/L (98-107); COR CA(FOR HYPOALB) 8.9 mg/dL (8.5-10.1); CREATININE 0.69 mg/dL (0.55-1.02); SODIUM 146 mmol/L (136-145); TOTAL PROTEIN 5.8 g/dL (6.4-8.2); eGFR BLACK RACES > 60 (>60); eGFR NON BLACK RACES > 60 (>60)
[2017-08-23 07:15] LABS: ANISOCYTOSIS SLIGHT; HYPOCHROMASIA 2+; MICROCYTOSIS 2+; PLATELET MORPHOLOGY COMMENT NORMAL (NORMAL)
[2017-08-23] MEDS: NEURONTIN CAP 300 MG PO SCH ×2 (09:00→20:55)
[2017-08-23] MEDS: MORPHINE SULFATE INJ 4 MG IVP PRN ×2 (09:00→22:11)
[2017-08-23] MEDS: DIFLUNISAL 500 MG PO SCH (09:00)
[2017-08-23] MEDS: BUSPAR PO SCH ×2 (09:00→20:55)
[2017-08-23] MEDS: PROTONIX INJ 40 MG VIAL IVP SCH ×2 (09:00→20:54)
[2017-08-23] MEDS: LOVENOX INJ 120 MG SYR SC SCH ×2 (09:00→21:00)
[2017-08-23] MEDS: ZINC SULFATE PO SCH (09:00)
[2017-08-23] MEDS: SYNTHROID 100 mcg TAB PO SCH (09:00)
[2017-08-23] MEDS: WELLBUTRIN XL 300 MG (DAILY) PO SCH (09:00)
[2017-08-23] MEDS: SEROquel TAB 100 MG PO SCH (09:00)
[2017-08-23] MEDS: VITAMIN C PO SCH (09:00)
[2017-08-23] MEDS: TOPAMAX TAB 100 MG PO SCH (10:56)
[2017-08-23] MEDS: TEFLARO 600 MG in NS 100 ML IV + SPIKE MINIBAG* 100 ML IV SCH ×2 (10:58→20:54)
[2017-08-23] MEDS ORDERED: NS 100 ML IV 100 ML IV ONE (20:52)
[2017-08-23] MEDS ORDERED: GENTAMICIN INJ ONE (20:52)
[2017-08-23] MEDS: VISTARIL PO PRN (20:55)
[2017-08-23] MEDS: WELLBUTRIN XL 150 MG (DAILY) PO SCH (20:55)
[2017-08-23] MEDS: PHENERGAN TAB 25 MG PO PRN (22:03)
[2017-08-24 06:22] LABS: BASOPHILS % (AUTO) 0.5 % (0.2-1.0); HEMATOCRIT 26.3 % (36.0-47.0); LYMPHOCYTES # (AUTO) 1.5 X10^3/uL (1.3-2.9); LYMPHOCYTES % (AUTO) 29.7 % (21.0-51.0); MEAN CORPUSCULAR HEMOGLOBIN 20.4 pg (27.0-34.0); MEAN CORPUSCULAR HGB CONC 30.6 g/dL (33.0-35.0); MEAN CORPUSCULAR VOLUME 66.8 fL (80.0-100.0); MEAN PLATELET VOLUME 10.7 fL (7.4-11.0); MONOCYTES # (AUTO) 0.4 x10^3/uL (0.3-0.8); MONOCYTES % (AUTO) 7.5 % (0.0-13.0); NEUTROPHILS # (AUTO) 3.1 x10^3/uL (2.2-4.8); NEUTROPHILS % (AUTO) 62.3 % (42.0-75.0); PLATELET COUNT 212 X10^3/uL (150.0-450.0); RED BLOOD COUNT 3.93 X10^6/uL (3.5-5.4); RED CELL DISTRIBUTION WIDTH 20.3 % (11.6-16.5)
[2017-08-24 06:40] LABS: ALANINE AMINOTRANSFERASE 13 Units/L (12-78); ALBUMIN 2.8 g/dL (3.4-5.0); ALKALINE PHOSPHATASE 120 Units/L (46-116); ASPARTATE AMINO TRANSFERASE < 6 Units/L (15-37); BLOOD UREA NITROGEN 9 mg/dL (7-18); CALCIUM 7.9 mg/dL (8.5-10.1); CARBON DIOXIDE 18.6 mmol/L (21-32); CHLORIDE 113 mmol/L (98-107); COR CA(FOR HYPOALB) 8.9 mg/dL (8.5-10.1); CREATININE 0.81 mg/dL (0.55-1.02); SODIUM 146 mmol/L (136-145); TOTAL PROTEIN 5.9 g/dL (6.4-8.2); eGFR BLACK RACES > 60 (>60); eGFR NON BLACK RACES > 60 (>60)
[2017-08-24 07:04] LABS: PLATELET MORPHOLOGY COMMENT NORMAL (NORMAL)
[2017-08-24 07:05] LABS: ANISOCYTOSIS 1+; HYPOCHROMASIA 2+; MICROCYTOSIS 1+
[2017-08-24] MEDS: PHARMACY CONSULT - DOSE _____ XX SCH ×2 (07:14→08:35)
[2017-08-24 08:19] LABS: CREATININE 0.8 mg/dL (0.55-1.02)
[2017-08-24] MEDS: LOVENOX INJ 120 MG SYR SC SCH (08:36)
[2017-08-24] MEDS: SEROquel TAB 100 MG PO SCH (08:36)
[2017-08-24] MEDS: DIFLUNISAL 500 MG PO SCH (08:36)
[2017-08-24] MEDS: BUSPAR PO SCH ×2 (08:36→20:45)
[2017-08-24] MEDS: PROTONIX INJ 40 MG VIAL IVP SCH ×2 (08:36→20:51)
[2017-08-24] MEDS: NEURONTIN CAP 300 MG PO SCH ×2 (08:36→20:49)
[2017-08-24] MEDS: WELLBUTRIN XL 300 MG (DAILY) PO SCH (08:37)
[2017-08-24] MEDS: VITAMIN C PO SCH (08:37)
[2017-08-24] MEDS: ZINC SULFATE PO SCH (08:37)
[2017-08-24] MEDS: SYNTHROID 100 mcg TAB PO SCH (08:37)
[2017-08-24] MEDS: TOPAMAX TAB 100 MG PO SCH (08:37)
[2017-08-24] MEDS: TEFLARO 600 MG in NS 100 ML IV + SPIKE MINIBAG* 100 ML IV SCH ×2 (08:37→21:30)
[2017-08-24] MEDS: MORPHINE SULFATE INJ 4 MG IVP PRN ×2 (08:38→23:04)
[2017-08-24] MEDS: PHENERGAN INJ 25 MG IV PRN ×2 (08:39→18:24)
[2017-08-24 08:40] LABS: GENTAMICIN,TROUGH 2.3 ug/mL (0-1.9)
[2017-08-24] MEDS: GENTAMICIN INJ 120 MG in NS 100 ML IV 100 ML IV SCH (08:40)
[2017-08-24] MEDS ORDERED: PHARMACY CONSULT - DOSE _____ XX SCH (11:00)
[2017-08-24] MEDS: ELIQUIS PO SCH (20:46)
[2017-08-24] MEDS: WELLBUTRIN XL 150 MG (DAILY) PO SCH (20:50)
[2017-08-24] MEDS: GENTAMICIN INJ 100 MG in NS 100 ML IV 100 ML IV SCH (22:00)
[2017-08-25] MEDS: MORPHINE SULFATE INJ 4 MG IVP PRN ×5 (03:13→20:43)
[2017-08-25] MEDS: D5 1/2 NS + KCL 20 MEQ/L 1,000 ML IV SCH (03:16)
[2017-08-25 05:22] LABS: BASOPHILS % (AUTO) 0.5 % (0.2-1.0); HEMATOCRIT 26.5 % (36.0-47.0); LYMPHOCYTES # (AUTO) 1.1 X10^3/uL (1.3-2.9); LYMPHOCYTES % (AUTO) 26.4 % (21.0-51.0); MEAN CORPUSCULAR HEMOGLOBIN 20.5 pg (27.0-34.0); MEAN CORPUSCULAR HGB CONC 30.4 g/dL (33.0-35.0); MEAN CORPUSCULAR VOLUME 67.4 fL (80.0-100.0); MEAN PLATELET VOLUME 10.7 fL (7.4-11.0); MONOCYTES # (AUTO) 0.3 x10^3/uL (0.3-0.8); MONOCYTES % (AUTO) 7.9 % (0.0-13.0); NEUTROPHILS # (AUTO) 2.8 x10^3/uL (2.2-4.8); NEUTROPHILS % (AUTO) 65.2 % (42.0-75.0); PLATELET COUNT 206 X10^3/uL (150.0-450.0); RED BLOOD COUNT 3.93 X10^6/uL (3.5-5.4); RED CELL DISTRIBUTION WIDTH 20.4 % (11.6-16.5); WHITE BLOOD COUNT 4.3 X10^3/uL (3.6-10.0)
[2017-08-25 05:34] LABS: ALANINE AMINOTRANSFERASE 16 Units/L (12-78); ALBUMIN 2.9 g/dL (3.4-5.0); ALKALINE PHOSPHATASE 135 Units/L (46-116); ASPARTATE AMINO TRANSFERASE 11 Units/L (15-37); BLOOD UREA NITROGEN 9 mg/dL (7-18); CALCIUM 8.2 mg/dL (8.5-10.1); CARBON DIOXIDE 21.5 mmol/L (21-32); CHLORIDE 113 mmol/L (98-107); COR CA(FOR HYPOALB) 9.1 mg/dL (8.5-10.1); CREATININE 0.88 mg/dL (0.55-1.02); SODIUM 143 mmol/L (136-145); TOTAL PROTEIN 6.2 g/dL (6.4-8.2); eGFR BLACK RACES > 60 (>60); eGFR NON BLACK RACES > 60 (>60)
[2017-08-25 06:02] LABS: HYPOCHROMASIA 2+; PLATELET MORPHOLOGY COMMENT NORMAL (NORMAL)
[2017-08-25 06:03] LABS: ANISOCYTOSIS 1+; MICROCYTOSIS 1+
[2017-08-25] MEDS: BUSPAR PO SCH ×2 (08:00→20:42)
[2017-08-25] MEDS: ELIQUIS PO SCH ×2 (08:33→20:42)
[2017-08-25] MEDS: DIFLUNISAL 500 MG PO SCH (08:33)
[2017-08-25] MEDS: VITAMIN C PO SCH (08:34)
[2017-08-25] MEDS: TEFLARO 600 MG in NS 100 ML IV + SPIKE MINIBAG* 100 ML IV SCH ×2 (08:34→20:41)
[2017-08-25] MEDS: PROTONIX INJ 40 MG VIAL IVP SCH ×2 (08:34→20:43)
[2017-08-25] MEDS: TOPAMAX TAB 100 MG PO SCH (08:34)
[2017-08-25] MEDS: SEROquel TAB 100 MG PO SCH (08:34)
[2017-08-25] MEDS: NEURONTIN CAP 300 MG PO SCH ×2 (08:34→20:43)
[2017-08-25] MEDS: SYNTHROID 100 mcg TAB PO SCH (08:34)
[2017-08-25] MEDS: WELLBUTRIN XL 300 MG (DAILY) PO SCH (08:35)
[2017-08-25] MEDS: ZINC SULFATE PO SCH (08:35)
[2017-08-25] MEDS: PHENERGAN INJ 25 MG IV PRN ×2 (11:53→20:41)
[2017-08-25] MEDS: GENTAMICIN INJ 100 MG in NS 100 ML IV 100 ML IV SCH (20:41)
[2017-08-25] MEDS: WELLBUTRIN XL 150 MG (DAILY) PO SCH (20:42)
[2017-08-26] MEDS: D5 1/2 NS + KCL 20 MEQ/L 1,000 ML IV SCH ×2 (05:35→19:43)
[2017-08-26 06:01] LABS: BASOPHILS % (AUTO) 0.4 % (0.2-1.0); HEMATOCRIT 24.4 % (36.0-47.0); HEMOGLOBIN 7.5 g/dL (12.0-16.0); LYMPHOCYTES # (AUTO) 1.2 X10^3/uL (1.3-2.9); LYMPHOCYTES % (AUTO) 24.3 % (21.0-51.0); MEAN CORPUSCULAR HEMOGLOBIN 20.8 pg (27.0-34.0); MEAN CORPUSCULAR HGB CONC 30.9 g/dL (33.0-35.0); MEAN CORPUSCULAR VOLUME 67.4 fL (80.0-100.0); MEAN PLATELET VOLUME 10.7 fL (7.4-11.0); MONOCYTES # (AUTO) 0.4 x10^3/uL (0.3-0.8); MONOCYTES % (AUTO) 9.1 % (0.0-13.0); NEUTROPHILS # (AUTO) 3.3 x10^3/uL (2.2-4.8); NEUTROPHILS % (AUTO) 66.2 % (42.0-75.0); PLATELET COUNT 178 X10^3/uL (150.0-450.0); RED BLOOD COUNT 3.63 X10^6/uL (3.5-5.4)
[2017-08-26 06:17] LABS: ALANINE AMINOTRANSFERASE 18 Units/L (12-78); ALBUMIN 2.6 g/dL (3.4-5.0); ALKALINE PHOSPHATASE 121 Units/L (46-116); ASPARTATE AMINO TRANSFERASE 8 Units/L (15-37); BLOOD UREA NITROGEN 11 mg/dL (7-18); CALCIUM 7.8 mg/dL (8.5-10.1); CARBON DIOXIDE 19.6 mmol/L (21-32); CHLORIDE 114 mmol/L (98-107); COR CA(FOR HYPOALB) 8.9 mg/dL (8.5-10.1); SODIUM 144 mmol/L (136-145); TOTAL PROTEIN 5.7 g/dL (6.4-8.2); eGFR BLACK RACES > 60 (>60); eGFR NON BLACK RACES > 60 (>60)
[2017-08-26] MEDS: MORPHINE SULFATE INJ 4 MG IVP PRN ×3 (06:19→19:05)
[2017-08-26 07:03] LABS: HYPOCHROMASIA 2+; MICROCYTOSIS 1+; PLATELET MORPHOLOGY COMMENT NORMAL (NORMAL)
[2017-08-26] MEDS: PHENERGAN INJ 25 MG IV PRN ×2 (08:55→19:05)
[2017-08-26] MEDS: DIFLUNISAL 500 MG PO SCH (08:58)
[2017-08-26] MEDS: NEURONTIN CAP 300 MG PO SCH ×2 (08:58→20:21)
[2017-08-26] MEDS: BUSPAR PO SCH ×2 (08:58→20:21)
[2017-08-26] MEDS: ELIQUIS PO SCH ×2 (08:58→20:21)
[2017-08-26] MEDS: PROTONIX INJ 40 MG VIAL IVP SCH ×2 (08:58→20:21)
[2017-08-26] MEDS: VITAMIN C PO SCH (08:59)
[2017-08-26] MEDS: SEROquel TAB 100 MG PO SCH (08:59)
[2017-08-26] MEDS: TEFLARO 600 MG in NS 100 ML IV + SPIKE MINIBAG* 100 ML IV SCH ×2 (08:59→20:20)
[2017-08-26] MEDS: SYNTHROID 100 mcg TAB PO SCH (08:59)
[2017-08-26] MEDS: TOPAMAX TAB 100 MG PO SCH (08:59)
[2017-08-26] MEDS: ZINC SULFATE PO SCH (09:00)
[2017-08-26] MEDS: WELLBUTRIN XL 300 MG (DAILY) PO SCH (09:00)
[2017-08-26] MEDS: GENTAMICIN INJ 100 MG in NS 100 ML IV 100 ML IV SCH (20:20)
[2017-08-26] MEDS: WELLBUTRIN XL 150 MG (DAILY) PO SCH (20:21)
--- NOTE | 2017-08-26 21:28 | PCM.PROG ---
Progress Note - Progress Note for Day of Date: 08/25/17 - Subjective Subjective: WAS ADMITTED ON 08/18/17 WITH CELLULITIS AND A WOUND TO THE LEFT LOWER EXTREMITY, RIGHT HIP AREA, AND A URINARY TRACT INFECTIONS. WOUND CULTURES REPORT GROWTH OF STAPHYLOCOCCUS AUREUS TO THE RIGHT HIP, STAPHYLOCOCCUS AUREAS AND PSEUDOMONAS AERUGINOSA TO THE LEFT FOOT. URINE CULTURE REPORT GROWTH OF KLEBSIELLA PNEUMONIAE AND E.COLI. SHE HAS BEEN RECEIVING IV ANTIBIOTICS AND WAS ALSO STARTED ON ELIQUIS PO FOR A DVT TO THE LEFT LOWER EXTREMITY. TODAY, SHE IS ALERT AND ORIENTED, LYING IN BED ON MORNING ROUNDS. SHE CONTINUES OF COMPLAINTS OF BILATERAL LOWER EXTREMITY PAIN. ON EXAMINATION, HEART IS REGULAR IN RATE AND RHYTHM. LUNGS ARE CLEAR THROUGHOUT. ABDOMEN IS ROUND, SOFT, AND NON-TENDER WITH NORMAL BOWEL SOUNDS NOTED IN ALL QUADRANTS. BILATERAL LOWER EXTREMITIES ARE NOTED WITH EDEMA. THERE IS REDNESS NOTED TO THE LEFT FOOT. DRESSING TO RIGHT HIP IS DRY AND INTACT. HER VITAL SIGNS THIS MORNING ARE 98.3-99-20-98%-136/65. ABNORMAL LAB VALUES INCLUDE THE FOLLOWING: HGB 8.0, HCT 26.5, CHLORIDE 113, CALCIUM 8.2, AST 11, ALK PHOS 135, TOTAL PROTEIN 6.2, ALBUMIN 2.9. TODAY, WE WILL CONTINUE WITH IV ANTIBIOTICS AND CURRENT PLAN OF CARE. WE PLAN TO FOLLOW UP WITH AM LABS AND CONTINUE TO MONITOR PATIENT. - Past Medical Family Social History Past Med/Fam/Surg Hx: No changes since H&P Allergies: Allergies Latex, Natural Rubber Allergy (Verified 08/18/17 21:27) - Review of Systems ROS: No change since H&P - Vital Signs and I&O's Vital Signs: Temperature 98.3 F Pulse Rate [Left Brachial] 93 Pulse Rate [Right Radial] 102 Pulse Rate 111 Respiratory Rate 20 Blood Pressure [Left Arm] 109/51 Blood Pressure [Right Arm] 113/53 Blood Pressure 119/66 O2 Sat by Pulse Oximetry 100 Intake and Output: Intake & Output 08/24/17 08/25/17 08/26/17 08/27/17 11:59 11:59 11:59 11:59 Intake Total 1345 2220 2240 560 Output Total 600 2065 750 Balance 1345 1620 175 -190 - Physical Exam Oriented: Normal Eyes: Normal Ear: Normal Nose: Normal Throat: Normal Cardiovascular: Normal, Edema : Normal Auscultation: Bowel Sounds: Normal Palpation: Normal Tenderness: Normal Skin: Wound (RIGHT HIP, 3CM OVAL SHAPED SKIN ULCERATION WITH PURULENT DC, 2CM LEFT FOOT ULCERATION WITH LOCALIZED REDNESS AND RED STREAK FROM WOUND AROUND TO SOLE OF FOOT) Musculoskeletal: Back:Lumbar, Motor Deficit, Sensory Deficit Psychiatric: Depression Mood Description: Flat Affect: Depressed, Flat Speech Pattern: Clear, Appropriate - Laboratory and Diagnostics Result Diagrams: 08/26/17 03:48 08/26/17 03:48 Labs: 08/18/17 17:45 Blood Blood Culture - Final 08/18/17 17:40 Blood Blood Culture - Final 08/20/17 11:25 Hip - Right Gram Stain - Final 08/20/17 11:25 Hip - Right Wound Culture - Final Staphylococcus Aureus 08/19/17 01:21 Urine,Catheterized Urine Culture - Final Klebsiella Pneumoniae Escherichia Coli 08/18/17 23:50 Foot - Left Gram Stain - Final 08/18/17 23:50 Foot - Left Wound Culture - Final Staphylococcus Aureus Pseudomonas Aeruginosa Laboratory WBC 5.0 X10^3/uL (3.6-10.0) 08/26/17 03:48 RBC 3.63 X10^6/uL (3.5-5.4) 08/26/17 03:48 Hgb 7.5 g/dL (12.0-16.0) L 08/26/17 03:48 Hct 24.4 % (36.0-47.0) L 08/26/17 03:48 MCV 67.4 fL (80.0-100.0) L 08/26/17 03:48 MCH 20.8 pg (27.0-34.0) L 08/26/17 03:48 MCHC 30.9 g/dL (33.0-35.0) L 08/26/17 03:48 RDW 20.0 % (11.6-16.5) H 08/26/17 03:48 Plt Count 178 X10^3/uL (150.0-450.0) 08/26/17 03:48 Plt Count Comment Adequate (ADEQUATE) 08/26/17 03:48 MPV 10.7 fL (7.4-11.0) 08/26/17 03:48 Neut % 66.2 % (42.0-75.0) 08/26/17 03:48 Lymph % 24.3 % (21.0-51.0) 08/26/17 03:48 [place] % 9.1 % (0.0-13.0) 08/26/17 03:48 Eos % 0.0 % (0.9-2.9) L 08/26/17 03:48 Baso % 0.4 % (0.2-1.0) 08/26/17 03:48 Neut # 3.3 x10^3/uL (2.2-4.8) 08/26/17 03:48 Lymph # 1.2 X10^3/uL (1.3-2.9) L 08/26/17 03:48 [place] # 0.4 x10^3/uL (0.3-0.8) 08/26/17 03:48 Eos # 0.0 x10^3/uL (0.0-0.2) 08/26/17 03:48 Baso # 0.0 X10^3/uL (0.0-0.1) 08/26/17 03:48 Absolute Nucleated RBC 0.1 /100WBC 08/26/17 03:48 Giant Platelets Few 08/18/17 17:40 Plt Morphology Comment Normal (NORMAL) 08/26/17 03:48 RBC Morphology Abnormal (NORMAL) A 08/26/17 03:48 Hypochromasia 2+ A 08/26/17 03:48 Poikilocytosis Slight A 08/20/17 04:35 Anisocytosis 1+ A 08/25/17 04:00 Microcytosis 1+ A 08/26/17 03:48 Tear Drop Cells Present 08/19/17 05:10 Ovalocytes Present 08/19/17 05:10 Sodium 144 mmol/L (136-145) 08/26/17 03:48 Corrected Sodium TNP 08/26/17 03:48 Potassium 3.9 mmol/L (3.5-5.1) 08/26/17 03:48 Chloride 114 mmol/L (98-107) H 08/26/17 03:48 Carbon Dioxide 19.6 mmol/L (21-32) L 08/26/17 03:48 BUN 11 mg/dL (7-18) 08/26/17 03:48 Creatinine 0.90 mg/dL (0.55-1.02) 08/26/17 03:48 Est GFR (MDRD) Af Amer > 60 (>60) 08/26/17 03:48 Est GFR (MDRD) Non-Af > 60 (>60) 08/26/17 03:48 Glucose 97 mg/dL (65-99) 08/26/17 03:48 Calcium 7.8 mg/dL (8.5-10.1) L 08/26/17 03:48 Corrected Calcium 8.9 mg/dL (8.5-10.1) 08/26/17 03:48 Iron 14 ug/dL (50-175) L 08/20/17 04:35 TIBC 292 ug/dL (250-450) 08/20/17 04:35 Transferrin 221 mg/dL (202-364) 08/20/17 04:35 Ferritin 6 ng/mL (8-252) L 08/20/17 04:35 Total Bilirubin 0.10 mg/dL (0.2-1.0) L 08/26/17 03:48 AST 8 Units/L (15-37) L 08/26/17 03:48 ALT 18 Units/L (12-78) 08/26/17 03:48 Alkaline Phosphatase 121 Units/L (46-116) H 08/26/17 03:48 C-Reactive Protein 15.00 mg/L (0-3.0) H 08/18/17 17:40 Total Protein 5.7 g/dL (6.4-8.2) L 08/26/17 03:48 Albumin 2.6 g/dL (3.4-5.0) L 08/26/17 03:48 Globulin 3.1 g/dL (2.5-4.5) 08/26/17 03:48 Albumin/Globulin Ratio 0.8 Ratio (1.1-2.1) L 08/26/17 03:48 Vitamin B12 254 pg/mL (193-986) 08/20/17 04:35 Folate > 20.0 ng/mL (>8.6) 08/20/17 04:35 Specimen Type Catherized urine 08/19/17 01:21 Urine Color Yellow (YELLOW) 08/19/17 01:21 Urine Appearance Clear (CLEAR) 08/19/17 01:21 Urine pH 6.0 (5.0 - 8.0) 08/19/17 01:21 Ur Specific [place] 1.020 (1.000-1.030) 08/19/17 01:21 Urine Protein 2+ (NEGATIVE) 08/19/17 01:21 Urine Glucose (UA) Negative (NEGATIVE) 08/19/17 01:21 Urine Ketones Negative (NEGATIVE) 08/19/17 01:21 Urine Occult Blood 1+ (NEGATIVE) 08/19/17 01:21 Urine Nitrite Positive (NEGATIVE) 08/19/17 01:21 Urine Bilirubin Negative (NEGATIVE) 08/19/17 01:21 Urine Urobilinogen 1+ (NORMAL) 08/19/17 01:21 Ur Leukocyte Esterase 1+ (NEGATIVE) 08/19/17 01:21 Urine RBC 2-5 /HPF (NEGATIVE) 08/19/17 01:21 Urine WBC 6-12 /HPF (NEGATIVE) 08/19/17 01:21 Ur Squamous Epith Cells Few /HPF (NEGATIVE) 08/19/17 01:21 Urine Bacteria 3+ /HPF (NEGATIVE) 08/19/17 01:21 Ur Culture Indicated? Yes/culture set up 08/19/17 01:21 Stool Description 100g soft brn 08/22/17 22:00 Stl Occult Blood (IFOB) Negative (NEGATIVE) 08/22/17 22:00 Gentamicin Trough 2.3 ug/mL (0-1.9) H 08/24/17 07:40 Blood Type O NEGATIVE 08/20/17 13:24 Antibody Screen Negative 08/20/17 13:24 Crossmatch See Detail 08/20/17 13:24 - Plan (1) Acute lymphangitis of foot, except toe Status: Acute Plan: CONTINUE IV ANTIBIOTICS, CONTINUE WOUND CARE, CONTINUE TO MONITOR (2) Infected stasis ulcer of left lower extremity Status: Acute Plan: CONTINUE IV ANTIBIOTICS, CONTINUE WOUND CARE, CONTINUE TO MONITOR (3) UTI (urinary tract infection) Status: Acute Qualifiers: Urinary tract infection type: acute cystitis Hematuria presence: with hematuria Qualified Code(s): N30.01 - Acute cystitis with hematuria Plan: CONTINUE IV ATBX, CONTINUE TO MONITOR
[2017-08-27 04:47] LABS: BASOPHILS % (AUTO) 0.7 % (0.2-1.0); HEMATOCRIT 30.1 % (36.0-47.0); LYMPHOCYTES # (AUTO) 1.7 X10^3/uL (1.3-2.9); LYMPHOCYTES % (AUTO) 26.2 % (21.0-51.0); MEAN CORPUSCULAR HEMOGLOBIN 20.6 pg (27.0-34.0); MEAN CORPUSCULAR HGB CONC 29.7 g/dL (33.0-35.0); MEAN CORPUSCULAR VOLUME 69.5 fL (80.0-100.0); MEAN PLATELET VOLUME 10.2 fL (7.4-11.0); MONOCYTES # (AUTO) 0.6 x10^3/uL (0.3-0.8); MONOCYTES % (AUTO) 9.9 % (0.0-13.0); NEUTROPHILS # (AUTO) 4.1 x10^3/uL (2.2-4.8); NEUTROPHILS % (AUTO) 63.2 % (42.0-75.0); PLATELET COUNT 202 X10^3/uL (150.0-450.0); RED BLOOD COUNT 4.34 X10^6/uL (3.5-5.4); RED CELL DISTRIBUTION WIDTH 20.7 % (11.6-16.5); WHITE BLOOD COUNT 6.4 X10^3/uL (3.6-10.0)
[2017-08-27 05:05] LABS: ALANINE AMINOTRANSFERASE 21 Units/L (12-78); ALKALINE PHOSPHATASE 134 Units/L (46-116); ASPARTATE AMINO TRANSFERASE 13 Units/L (15-37); BLOOD UREA NITROGEN 13 mg/dL (7-18); CALCIUM 8.2 mg/dL (8.5-10.1); CARBON DIOXIDE 18.7 mmol/L (21-32); CHLORIDE 110 mmol/L (98-107); CREATININE 0.88 mg/dL (0.55-1.02); SODIUM 142 mmol/L (136-145); TOTAL PROTEIN 6.8 g/dL (6.4-8.2); eGFR BLACK RACES > 60 (>60); eGFR NON BLACK RACES > 60 (>60)
[2017-08-27 05:17] LABS: ANISOCYTOSIS 1+; HYPOCHROMASIA 2+; MICROCYTOSIS 1+; PLATELET MORPHOLOGY COMMENT NORMAL (NORMAL)
[2017-08-27] MEDS: MORPHINE SULFATE INJ 4 MG IVP PRN ×3 (06:02→23:27)
[2017-08-27] MEDS: PHENERGAN INJ 25 MG IV PRN ×3 (06:03→23:28)
[2017-08-27] MEDS: DIFLUNISAL 500 MG PO SCH (09:09)
[2017-08-27] MEDS: PROTONIX INJ 40 MG VIAL IVP SCH ×2 (09:09→20:42)
[2017-08-27] MEDS: SEROquel TAB 100 MG PO SCH (09:10)
[2017-08-27] MEDS: TOPAMAX TAB 100 MG PO SCH (09:10)
[2017-08-27] MEDS: ZINC SULFATE PO SCH (09:10)
[2017-08-27] MEDS: VITAMIN C PO SCH (09:10)
[2017-08-27] MEDS: BUSPAR PO SCH ×2 (09:10→20:42)
[2017-08-27] MEDS: SYNTHROID 100 mcg TAB PO SCH (09:11)
[2017-08-27] MEDS: WELLBUTRIN XL 300 MG (DAILY) PO SCH (09:11)
[2017-08-27] MEDS: ELIQUIS PO SCH (09:11)
[2017-08-27] MEDS: NEURONTIN CAP 300 MG PO SCH ×2 (09:12→20:42)
[2017-08-27] MEDS: TEFLARO 600 MG in NS 100 ML IV + SPIKE MINIBAG* 100 ML IV SCH ×2 (09:12→20:41)
[2017-08-27] MEDS ORDERED: DEMEROL INJ IVP PRN (09:51)
[2017-08-27] MEDS: D5 1/2 NS + KCL 20 MEQ/L 1,000 ML IV SCH (14:00)
[2017-08-27 14:13] LABS: HEMOGLOBIN 7.9 g/dL (12.0-16.0)
[2017-08-27 19:43] LABS: CREATININE 0.9 mg/dL (0.55-1.02); GENTAMICIN,TROUGH 0.4 ug/mL (0-1.9)
[2017-08-27] MEDS: WELLBUTRIN XL 150 MG (DAILY) PO SCH (20:42)
[2017-08-27] MEDS: GENTAMICIN INJ 100 MG in NS 100 ML IV 100 ML IV SCH (20:42)
[2017-08-27] MEDS ORDERED: PHARMACY COMMENT IV SCH (20:45)
--- NOTE | 2017-08-27 21:07 | PCM.PROG ---
Progress Note - Progress Note for Day of Date: 08/26/17 - Subjective Subjective: WAS ADMITTED ON 08/18/17 WITH CELLULITIS AND A WOUND TO THE LEFT LOWER EXTREMITY, RIGHT HIP AREA, AND A URINARY TRACT INFECTIONS. WOUND CULTURES REPORTED GROWTH OF STAPHYLOCOCCUS AUREUS TO THE RIGHT HIP, STAPHYLOCOCCUS AUREAS AND PSEUDOMONAS AERUGINOSA TO THE LEFT FOOT. URINE CULTURE REPORTED GROWTH OF KLEBSIELLA PNEUMONIAE AND E.COLI. SHE HAS BEEN RECEIVING IV ANTIBIOTICS AND WAS ALSO STARTED ON ELIQUIS PO FOR A DVT TO THE LEFT LOWER EXTREMITY. TODAY, SHE IS ALERT AND ORIENTED, SITTING UP IN BED ON MORNING ROUNDS. SHE CONTINUES OF COMPLAINTS OF BILATERAL LOWER EXTREMITY PAIN. ON EXAMINATION, HEART IS REGULAR IN RATE AND RHYTHM. LUNGS ARE CLEAR THROUGHOUT. ABDOMEN IS ROUND, SOFT, AND NON-TENDER WITH NORMAL BOWEL SOUNDS NOTED IN ALL QUADRANTS. REDNESS AND EDEMA CONTINUE TO BILATERAL LOWER EXTREMITIES. DRESSING TO RIGHT HIP IS DRY AND INTACT. HER VITAL SIGNS THIS MORNING ARE 98.7-92-20-99%-116/55. ABNORMAL LAB VALUES INCLUDE THE FOLLOWING: HGB 7.5, HCT 24.4, CHLORIDE 114, CARBON DIOXIDE 19.6, CALCIUM 7.8, AST 8, ALK PHOS 121, TOTAL PROTEIN 5.7, ALBUMIN 2.6. TODAY, WE WILL CONTINUE WITH IV ANTIBIOTICS AND CURRENT PLAN OF CARE. WE PLAN TO FOLLOW UP WITH AM LABS AND CONTINUE TO MONITOR PATIENT. WE WILL MONITOR H&H AND TRANSFUSE IF HGB FALLS BELOW 7.0. - Past Medical Family Social History Past Med/Fam/Surg Hx: No changes since H&P Allergies: Allergies Latex, Natural Rubber Allergy (Verified 08/18/17 21:27) - Review of Systems ROS: No change since H&P - Vital Signs and I&O's Vital Signs: Temperature 98.6 F Pulse Rate [Left Brachial] 92 Pulse Rate [Right Radial] 102 Pulse Rate 111 Respiratory Rate 20 Blood Pressure [Left Arm] 128/69 Blood Pressure [Right Arm] 107/51 Blood Pressure 119/66 O2 Sat by Pulse Oximetry 97 Intake and Output: Intake & Output 08/25/17 08/26/17 08/27/17 08/28/17 11:59 11:59 11:59 11:59 Intake Total 2220 2240 2655 1840 Output Total 600 2065 1525 800 Balance 0546 273 3514 1040 - Physical Exam Oriented: Normal Eyes: Normal Ear: Normal Nose: Normal Throat: Normal Respiratory: Normal Cardiovascular: Normal, Edema : Normal Auscultation: Bowel Sounds: Normal Palpation: Normal Tenderness: Normal Skin: Wound (RIGHT HIP, 3CM OVAL SHAPED SKIN ULCERATION WITH PURULENT DC, 2CM LEFT FOOT ULCERATION WITH LOCALIZED REDNESS AND RED STREAK FROM WOUND AROUND TO SOLE OF FOOT) Musculoskeletal: Back:Lumbar, Motor Deficit, Sensory Deficit Psychiatric: Depression Mood Description: Flat Affect: Depressed, Flat Speech Pattern: Clear, Appropriate - Laboratory and Diagnostics Result Diagrams: 08/27/17 13:58 08/27/17 19:14 Labs: 08/18/17 17:45 Blood Blood Culture - Final 08/18/17 17:40 Blood Blood Culture - Final 08/20/17 11:25 Hip - Right Gram Stain - Final 08/20/17 11:25 Hip - Right Wound Culture - Final Staphylococcus Aureus 08/19/17 01:21 Urine,Catheterized Urine Culture - Final Klebsiella Pneumoniae Escherichia Coli 08/18/17 23:50 Foot - Left Gram Stain - Final 08/18/17 23:50 Foot - Left Wound Culture - Final Staphylococcus Aureus Pseudomonas Aeruginosa Laboratory WBC 6.4 X10^3/uL (3.6-10.0) 08/27/17 04:00 RBC 4.34 X10^6/uL (3.5-5.4) 08/27/17 04:00 Hgb 7.9 g/dL (12.0-16.0) L 08/27/17 13:58 Hct 26.0 % (36.0-47.0) L 08/27/17 13:58 MCV 69.5 fL (80.0-100.0) L 08/27/17 04:00 MCH 20.6 pg (27.0-34.0) L 08/27/17 04:00 MCHC 29.7 g/dL (33.0-35.0) L 08/27/17 04:00 RDW 20.7 % (11.6-16.5) H 08/27/17 04:00 Plt Count 202 X10^3/uL (150.0-450.0) 08/27/17 04:00 Plt Count Comment Adequate (ADEQUATE) 08/27/17 04:00 MPV 10.2 fL (7.4-11.0) 08/27/17 04:00 Neut % 63.2 % (42.0-75.0) 08/27/17 04:00 Lymph % 26.2 % (21.0-51.0) 08/27/17 04:00 [place] % 9.9 % (0.0-13.0) 08/27/17 04:00 Eos % 0.0 % (0.9-2.9) L 08/27/17 04:00 Baso % 0.7 % (0.2-1.0) 08/27/17 04:00 Neut # 4.1 x10^3/uL (2.2-4.8) 08/27/17 04:00 Lymph # 1.7 X10^3/uL (1.3-2.9) 08/27/17 04:00 [place] # 0.6 x10^3/uL (0.3-0.8) 08/27/17 04:00 Eos # 0.0 x10^3/uL (0.0-0.2) 08/27/17 04:00 Baso # 0.0 X10^3/uL (0.0-0.1) 08/27/17 04:00 Absolute Nucleated RBC 0.0 /100WBC 08/27/17 04:00 Giant Platelets Few 08/18/17 17:40 Plt Morphology Comment Normal (NORMAL) 08/27/17 04:00 RBC Morphology Abnormal (NORMAL) A 08/27/17 04:00 Hypochromasia 2+ A 08/27/17 04:00 Poikilocytosis Slight A 08/20/17 04:35 Anisocytosis 1+ A 08/27/17 04:00 Microcytosis 1+ A 08/27/17 04:00 Tear Drop Cells Present 08/19/17 05:10 Ovalocytes Present 08/19/17 05:10 Sodium 142 mmol/L (136-145) 08/27/17 04:00 Corrected Sodium TNP 08/27/17 04:00 Potassium 3.6 mmol/L (3.5-5.1) 08/27/17 04:00 Chloride 110 mmol/L (98-107) H 08/27/17 04:00 Carbon Dioxide 18.7 mmol/L (21-32) L 08/27/17 04:00 BUN 13 mg/dL (7-18) 08/27/17 04:00 Creatinine 0.90 mg/dL (0.55-1.02) 08/27/17 19:14 Est GFR (MDRD) Af Amer > 60 (>60) 08/27/17 04:00 Est GFR (MDRD) Non-Af > 60 (>60) 08/27/17 04:00 Glucose 92 mg/dL (65-99) 08/27/17 04:00 Calcium 8.2 mg/dL (8.5-10.1) L 08/27/17 04:00 Corrected Calcium 9.0 mg/dL (8.5-10.1) 08/27/17 04:00 Iron 14 ug/dL (50-175) L 08/20/17 04:35 TIBC 292 ug/dL (250-450) 08/20/17 04:35 Transferrin 221 mg/dL (202-364) 08/20/17 04:35 Ferritin 6 ng/mL (8-252) L 08/20/17 04:35 Total Bilirubin 0.20 mg/dL (0.2-1.0) 08/27/17 04:00 AST 13 Units/L (15-37) L 08/27/17 04:00 ALT 21 Units/L (12-78) 08/27/17 04:00 Alkaline Phosphatase 134 Units/L (46-116) H 08/27/17 04:00 C-Reactive Protein 15.00 mg/L (0-3.0) H 08/18/17 17:40 Total Protein 6.8 g/dL (6.4-8.2) 08/27/17 04:00 Albumin 3.0 g/dL (3.4-5.0) L 08/27/17 04:00 Globulin 3.8 g/dL (2.5-4.5) 08/27/17 04:00 Albumin/Globulin Ratio 0.8 Ratio (1.1-2.1) L 08/27/17 04:00 Vitamin B12 254 pg/mL (193-986) 08/20/17 04:35 Folate > 20.0 ng/mL (>8.6) 08/20/17 04:35 Specimen Type Catherized urine 08/19/17 01:21 Urine Color Yellow (YELLOW) 08/19/17 01:21 Urine Appearance Clear (CLEAR) 08/19/17 01:21 Urine pH 6.0 (5.0 - 8.0) 08/19/17 01:21 Ur Specific [place] 1.020 (1.000-1.030) 08/19/17 01:21 Urine Protein 2+ (NEGATIVE) 08/19/17 01:21 Urine Glucose (UA) Negative (NEGATIVE) 08/19/17 01:21 Urine Ketones Negative (NEGATIVE) 08/19/17 01:21 Urine Occult Blood 1+ (NEGATIVE) 08/19/17 01:21 Urine Nitrite Positive (NEGATIVE) 08/19/17 01:21 Urine Bilirubin Negative (NEGATIVE) 08/19/17 01:21 Urine Urobilinogen 1+ (NORMAL) 08/19/17 01:21 Ur Leukocyte Esterase 1+ (NEGATIVE) 08/19/17 01:21 Urine RBC 2-5 /HPF (NEGATIVE) 08/19/17 01:21 Urine WBC 6-12 /HPF (NEGATIVE) 08/19/17 01:21 Ur Squamous Epith Cells Few /HPF (NEGATIVE) 08/19/17 01:21 Urine Bacteria 3+ /HPF (NEGATIVE) 08/19/17 01:21 Ur Culture Indicated? Yes/culture set up 08/19/17 01:21 Stool Description 100g soft brn 08/22/17 22:00 Stl Occult Blood (IFOB) Negative (NEGATIVE) 08/22/17 22:00 Gentamicin Trough 0.4 ug/mL (0-1.9) 08/27/17 19:14 Blood Type O NEGATIVE 08/20/17 13:24 Antibody Screen Negative 08/20/17 13:24 Crossmatch See Detail 08/20/17 13:24 - Plan (1) Acute lymphangitis of foot, except toe Status: Acute Plan: CONTINUE IV ANTIBIOTICS, CONTINUE WOUND CARE, CONTINUE TO MONITOR (2) Infected stasis ulcer of left lower extremity Status: Acute Plan: CONTINUE IV ANTIBIOTICS, CONTINUE WOUND CARE, CONTINUE TO MONITOR (3) UTI (urinary tract infection) Status: Acute Qualifiers: Urinary tract infection type: acute cystitis Hematuria presence: with hematuria Qualified Code(s): N30.01 - Acute cystitis with hematuria Plan: CONTINUE IV ATBX, CONTINUE TO MONITOR
[2017-08-28] MEDS: D5 1/2 NS + KCL 20 MEQ/L 1,000 ML IV SCH (02:00)
[2017-08-28] MEDS: PHENERGAN INJ 25 MG IV PRN (04:49)
[2017-08-28 05:20] LABS: BASOPHILS % (AUTO) 0.6 % (0.2-1.0); EOSINOPHILS % (AUTO) 0.1 % (0.9-2.9); HEMATOCRIT 27.1 % (36.0-47.0); HEMOGLOBIN 8.2 g/dL (12.0-16.0); LYMPHOCYTES # (AUTO) 1.6 X10^3/uL (1.3-2.9); LYMPHOCYTES % (AUTO) 25.4 % (21.0-51.0); MEAN CORPUSCULAR HEMOGLOBIN 20.9 pg (27.0-34.0); MEAN CORPUSCULAR HGB CONC 30.2 g/dL (33.0-35.0); MEAN CORPUSCULAR VOLUME 69.3 fL (80.0-100.0); MEAN PLATELET VOLUME 10.3 fL (7.4-11.0); MONOCYTES # (AUTO) 0.5 x10^3/uL (0.3-0.8); MONOCYTES % (AUTO) 7.5 % (0.0-13.0); NEUTROPHILS # (AUTO) 4.2 x10^3/uL (2.2-4.8); NEUTROPHILS % (AUTO) 66.4 % (42.0-75.0); PLATELET COUNT 176 X10^3/uL (150.0-450.0); RED BLOOD COUNT 3.91 X10^6/uL (3.5-5.4); RED CELL DISTRIBUTION WIDTH 21.1 % (11.6-16.5); WHITE BLOOD COUNT 6.4 X10^3/uL (3.6-10.0)
[2017-08-28 05:37] LABS: ANISOCYTOSIS 1+; HYPOCHROMASIA 2+; MICROCYTOSIS 1+; OVALOCYTES PRESENT; PLATELET MORPHOLOGY COMMENT NORMAL (NORMAL)
[2017-08-28 05:39] LABS: ALANINE AMINOTRANSFERASE 20 Units/L (12-78); ALBUMIN 2.7 g/dL (3.4-5.0); ALKALINE PHOSPHATASE 124 Units/L (46-116); ASPARTATE AMINO TRANSFERASE 10 Units/L (15-37); BLOOD UREA NITROGEN 13 mg/dL (7-18); CALCIUM 7.9 mg/dL (8.5-10.1); CARBON DIOXIDE 17.6 mmol/L (21-32); CHLORIDE 114 mmol/L (98-107); COR CA(FOR HYPOALB) 8.9 mg/dL (8.5-10.1); COR NA(FOR HYPERGLY) 145 mmol/L (136-145); SODIUM 144 mmol/L (136-145); eGFR BLACK RACES > 60 (>60); eGFR NON BLACK RACES > 60 (>60)
[2017-08-28] MEDS: BUSPAR PO SCH (08:25)
[2017-08-28] MEDS: SYNTHROID 100 mcg TAB PO SCH (08:25)
[2017-08-28] MEDS: DIFLUNISAL 500 MG PO SCH (08:25)
[2017-08-28] MEDS: WELLBUTRIN XL 300 MG (DAILY) PO SCH (08:25)
[2017-08-28] MEDS: VITAMIN C PO SCH (08:25)
[2017-08-28] MEDS: ZINC SULFATE PO SCH (08:25)
[2017-08-28] MEDS: NEURONTIN CAP 300 MG PO SCH (08:26)
[2017-08-28] MEDS: TOPAMAX TAB 100 MG PO SCH (08:26)
[2017-08-28] MEDS: SEROquel TAB 100 MG PO SCH (08:26)
[2017-08-28] MEDS: PROTONIX INJ 40 MG VIAL IVP SCH (08:27)
[2017-08-28] MEDS: TEFLARO 600 MG in NS 100 ML IV + SPIKE MINIBAG* 100 ML IV SCH (08:27)
[2017-08-28 12:00] VITALS: BP 119/56
== END 2017-08-28 12:30 | disposition home or self-care (01) | DRG 603 ==
LOC: ER 16:37 → OBSVTOIN 20:05 → MED/SURG 20:05
PROVIDERS: ADMIT Internal Medicine; ATTEND Internal Medicine
DX: L03.126 Acute lymphangitis of left lower limb (principal); E87.6 Hypokalemia; N30.01 Acute cystitis with hematuria; E03.8 Other specified hypothyroidism; F41.1 Generalized anxiety disorder; I83.228 Varicose veins of left lower extremity with both ulcer of other part of lower extremity and inflammation; F32.89 Other specified depressive episodes; Z87.898 Personal history of other specified conditions; R60.0 Localized edema; B95.62 Methicillin resistant Staphylococcus aureus infection as the cause of diseases classified elsewhere; B96.1 Klebsiella pneumoniae [K. pneumoniae] as the cause of diseases classified elsewhere; B96.29 Other Escherichia coli [E. coli] as the cause of diseases classified elsewhere
CPT/HCPCS: 36415; 71010; 73630; 80048; 80053; 80170; 81001; 82270; 82565; 82607; 82728; 82746; 83540; 83550; 84132; 84466; 85014; 85018; 85025; 86140; 86850; 86900; 86901; 86922; 87040; 87070; 87075; 87077; 87086; 87088; 87186; 87205; 93970; 96365; 96374; 99231; 99283; 99284; A4216; A4222; C9113; Q0169; Q0177; S0077; S0106; J0712; J1580; J1650; J1940; J2175; J2270; J2405; J2550; J3480

== ENCOUNTER → 2017-09-14 | Outpatient (CLI) | payer OTHER, MEDICAID ==
[2017-08-28 12:00] VITALS: BP 119/56
[2017-09-14 09:39] LABS: BASOPHILS % (AUTO) 0.5 % (0.2-1.0); EOSINOPHILS % (AUTO) 0.2 % (0.9-2.9); HEMATOCRIT 30.4 % (36.0-47.0); HEMOGLOBIN 9.3 g/dL (12.0-16.0); LYMPHOCYTES # (AUTO) 1.7 X10^3/uL (1.3-2.9); LYMPHOCYTES % (AUTO) 23.8 % (21.0-51.0); MEAN CORPUSCULAR HEMOGLOBIN 21.4 pg (27.0-34.0); MEAN CORPUSCULAR HGB CONC 30.6 g/dL (33.0-35.0); MEAN CORPUSCULAR VOLUME 70.1 fL (80.0-100.0); MEAN PLATELET VOLUME 10.4 fL (7.4-11.0); MONOCYTES # (AUTO) 0.4 x10^3/uL (0.3-0.8); MONOCYTES % (AUTO) 5.9 % (0.0-13.0); NEUTROPHILS # (AUTO) 5.1 x10^3/uL (2.2-4.8); NEUTROPHILS % (AUTO) 69.6 % (42.0-75.0); PLATELET COUNT 170 X10^3/uL (150.0-450.0); RED BLOOD COUNT 4.33 X10^6/uL (3.5-5.4); RED CELL DISTRIBUTION WIDTH 24.7 % (11.6-16.5); WHITE BLOOD COUNT 7.3 X10^3/uL (3.6-10.0)
[2017-09-14 10:18] LABS: ANISOCYTOSIS 3+; HYPOCHROMASIA 2+; MICROCYTOSIS 1+; PLATELET MORPHOLOGY COMMENT NORMAL (NORMAL)
[2017-09-14 10:27] LABS: ALANINE AMINOTRANSFERASE 13 Units/L (12-78); ALBUMIN 3.1 g/dL (3.4-5.0); ALKALINE PHOSPHATASE 138 Units/L (46-116); ASPARTATE AMINO TRANSFERASE 6 Units/L (15-37); BLOOD UREA NITROGEN 17 mg/dL (7-18); CALCIUM 8.1 mg/dL (8.5-10.1); CARBON DIOXIDE 21.9 mmol/L (21-32); CHLORIDE 108 mmol/L (98-107); CHOL/HDL RATIO 5.5 (0.0-5.0); CHOLESTEROL 143 mg/dL (0-200); COR CA(FOR HYPOALB) 8.8 mg/dL (8.5-10.1); CREATININE 0.76 mg/dL (0.55-1.02); HDL CHOLESTEROL 26 mg/dL (40-60); SODIUM 136 mmol/L (136-145); TOTAL PROTEIN 6.8 g/dL (6.4-8.2); TRIGLYCERIDES 113 mg/dL (0-150); TSH (3RD GENERATION) 2.238 uIU/mL (0.358-3.74); eGFR BLACK RACES > 60 (>60); eGFR NON BLACK RACES > 60 (>60)
== END ==
LOC: LAB 09:06
PROVIDERS: ATTEND Psychiatry & Neurology Psychiatry
DX: F33.1 Major depressive disorder, recurrent, moderate (principal); F43.12 Post-traumatic stress disorder, chronic; Z79.899 Other long term (current) drug therapy
CPT/HCPCS: 36415; 80053; 80061; 84443; 85025

== ENCOUNTER 2018-01-07 14:26 | Inpatient (IN) | payer OTHER, MEDICAID ==
[2018-01-07 17:44] LABS: BASOPHILS % (AUTO) 0.5 % (0.2-1.0); HEMATOCRIT 30.1 % (36.0-47.0); HEMOGLOBIN 9.4 g/dL (12.0-16.0); LYMPHOCYTES # (AUTO) 1.4 X10^3/uL (1.3-2.9); LYMPHOCYTES % (AUTO) 28.2 % (21.0-51.0); MEAN CORPUSCULAR HEMOGLOBIN 21.7 pg (27.0-34.0); MEAN CORPUSCULAR HGB CONC 31.3 g/dL (33.0-35.0); MEAN CORPUSCULAR VOLUME 69.2 fL (80.0-100.0); MEAN PLATELET VOLUME 11.1 fL (7.4-11.0); MONOCYTES # (AUTO) 0.3 x10^3/uL (0.3-0.8); MONOCYTES % (AUTO) 5.4 % (0.0-13.0); NEUTROPHILS # (AUTO) 3.2 x10^3/uL (2.2-4.8); NEUTROPHILS % (AUTO) 65.9 % (42.0-75.0); PLATELET COUNT 194 X10^3/uL (150.0-450.0); RED BLOOD COUNT 4.34 X10^6/uL (3.5-5.4); WHITE BLOOD COUNT 4.9 X10^3/uL (3.6-10.0)
[2018-01-07] MEDS ORDERED: ZOSYN VIAL 3.375 GM IV ONE (17:46)
[2018-01-07] MEDS ORDERED: NS 100 ML IV + SPIKE MINIBAG* 100 ML IV ONE (17:47)
[2018-01-07 17:53] LABS: ALANINE AMINOTRANSFERASE 29 Units/L (12-78); ALBUMIN 3.3 g/dL (3.4-5.0); ALKALINE PHOSPHATASE 149 Units/L (46-116); ASPARTATE AMINO TRANSFERASE 6 Units/L (15-37); BLOOD UREA NITROGEN 15 mg/dL (7-18); CALCIUM 7.5 mg/dL (8.5-10.1); CARBON DIOXIDE 19.5 mmol/L (21-32); CHLORIDE 109 mmol/L (98-107); COR CA(FOR HYPOALB) 8.1 mg/dL (8.5-10.1); SODIUM 141 mmol/L (136-145); TOTAL PROTEIN 6.5 g/dL (6.4-8.2); eGFR BLACK RACES > 60 (>60); eGFR NON BLACK RACES > 60 (>60)
[2018-01-07 17:58] LABS: GIANT PLATELET RARE; PLATELET MORPHOLOGY COMMENT ABNORMAL (NORMAL)
[2018-01-07 18:00] LABS: ANISOCYTOSIS 2+; HYPOCHROMASIA 1+
[2018-01-07 18:01] LABS: MICROCYTOSIS 1+
[2018-01-07] MEDS: NS 1000 ML 1,000 ML IV SCH (18:02)
[2018-01-07] MEDS: ZOSYN VIAL 3.375 GM 3.375 GM in NS 100 ML IV + SPIKE MINIBAG* 100 ML IV SCH ×2 (18:02→23:17)
[2018-01-07] MEDS ORDERED: K-LYTE EFFERVESCENT PO PRN (18:03)
[2018-01-07] MEDS ORDERED: K-RIDER 10 MEQ/NS 100 ML 10 MEQ/100 ML BAG IV PRN (18:03)
[2018-01-07] MEDS ORDERED: POTASSIUM CHL 60 MEQ/NS 0.45% 500 ML IV PRN (18:03)
[2018-01-07] MEDS ORDERED: POTASSIUM CHLORIDE LIQ 20 MEQ UDC PO PRN (18:03)
[2018-01-07] MEDS ORDERED: POTASSIUM CHL 40 MEQ/NS 0.45% 500 ML IV PRN (18:03)
[2018-01-07] MEDS ORDERED: MAGNESIUM SULFATE 1 GM/100 mL PREMIX 1 GM/100 ML BAG IV PRN (18:03)
[2018-01-07] MEDS ORDERED: DEPO-PROVERA CONTRACEPTIVE INJ IM SCH (20:00)
[2018-01-07 20:52] LABS: BILIRUBIN,URINE NEGATIVE (NEGATIVE); BLOOD/HEMOGLOBIN,URINE 1+ (NEGATIVE); GLUCOSE, URINE NEGATIVE (NEGATIVE); KETONES,URINE NEGATIVE (NEGATIVE); LEUKOCYTE ESTERASE ,URINE 1+ (NEGATIVE); NITRITES,URINE POSITIVE (NEGATIVE); PROTEIN,URINE 1+ (NEGATIVE); UROBILINOGEN,URINE NORMAL (NORMAL)
[2018-01-07 21:00] LABS: APPEARANCE,URINE CLOUDY (CLEAR); BACTERIA,URINE 3+ /HPF (NEGATIVE); COLOR,URINE YELLOW (YELLOW); SQUAMOUS EPITHELIAL CELL,UR RARE /HPF (NEGATIVE)
[2018-01-07] MEDS: BUSPAR PO SCH (23:10)
[2018-01-07] MEDS: ELIQUIS PO SCH (23:11)
[2018-01-07] MEDS: NEURONTIN CAP 300 MG PO SCH (23:12)
[2018-01-07] MEDS: SEROquel TAB 100 MG PO SCH (23:13)
[2018-01-07] MEDS: TOPAMAX PO SCH (23:15)
[2018-01-07] MEDS: WELLBUTRIN XL 150 MG (DAILY) PO SCH (23:16)
[2018-01-07] MEDS: FLEXERIL TAB 10 MG PO SCH (23:16)
[2018-01-07] MEDS: WELLBUTRIN XL 300 MG (DAILY) PO SCH (23:16)
[2018-01-07] MEDS: TAPENTADOL HCL 150 MG PO SCH (23:31)
[2018-01-08] MEDS: MORPHINE SULFATE INJ 2 MG INJ IVP PRN ×3 (00:24→14:45)
[2018-01-08] MEDS ORDERED: AMBIEN PO PRN (01:38)
[2018-01-08] MEDS: FLEXERIL TAB 10 MG PO SCH ×3 (05:48→22:27)
[2018-01-08] MEDS: NS 1000 ML 1,000 ML IV SCH (05:57)
[2018-01-08 06:39] LABS: BASOPHILS % (AUTO) 0.3 % (0.2-1.0); HEMATOCRIT 26.7 % (36.0-47.0); HEMOGLOBIN 8.5 g/dL (12.0-16.0); MEAN CORPUSCULAR HGB CONC 31.7 g/dL (33.0-35.0); MEAN CORPUSCULAR VOLUME 69.3 fL (80.0-100.0); MEAN PLATELET VOLUME 11.2 fL (7.4-11.0); MONOCYTES # (AUTO) 0.3 x10^3/uL (0.3-0.8); MONOCYTES % (AUTO) 7.3 % (0.0-13.0); NEUTROPHILS # (AUTO) 2.3 x10^3/uL (2.2-4.8); NEUTROPHILS % (AUTO) 49.4 % (42.0-75.0); PLATELET COUNT 185 X10^3/uL (150.0-450.0); RED BLOOD COUNT 3.85 X10^6/uL (3.5-5.4); RED CELL DISTRIBUTION WIDTH 20.1 % (11.6-16.5); WHITE BLOOD COUNT 4.6 X10^3/uL (3.6-10.0)
[2018-01-08 06:58] LABS: ALANINE AMINOTRANSFERASE 23 Units/L (12-78); ALBUMIN 2.8 g/dL (3.4-5.0); ALKALINE PHOSPHATASE 123 Units/L (46-116); ASPARTATE AMINO TRANSFERASE 6 Units/L (15-37); BLOOD UREA NITROGEN 12 mg/dL (7-18); CARBON DIOXIDE 16.2 mmol/L (21-32); CREATININE 0.71 mg/dL (0.55-1.02); SODIUM 144 mmol/L (136-145); TOTAL PROTEIN 5.7 g/dL (6.4-8.2); eGFR BLACK RACES > 60 (>60); eGFR NON BLACK RACES > 60 (>60)
[2018-01-08 07:03] LABS: CHLORIDE 116 mmol/L (98-107)
[2018-01-08 07:05] LABS: ANISOCYTOSIS 1+; HYPOCHROMASIA 1+; MICROCYTOSIS 1+; PLATELET MORPHOLOGY COMMENT NORMAL (NORMAL)
[2018-01-08] MEDS: ZOSYN VIAL 3.375 GM 3.375 GM in NS 100 ML IV + SPIKE MINIBAG* 100 ML IV SCH ×3 (07:15→22:17)
[2018-01-08 09:15] VITALS: BMI 41.4
[2018-01-08] MEDS: TAPENTADOL HCL 150 MG PO SCH ×2 (09:51→22:25)
[2018-01-08] MEDS: WELLBUTRIN XL 300 MG (DAILY) PO SCH ×2 (09:52→22:27)
[2018-01-08] MEDS: NEURONTIN CAP 300 MG PO SCH ×2 (09:52→22:23)
[2018-01-08] MEDS: BUSPAR PO SCH ×2 (09:52→22:21)
[2018-01-08] MEDS: FOLIC ACID TAB 1 MG PO SCH (09:53)
[2018-01-08] MEDS: ELIQUIS PO SCH ×2 (09:53→22:22)
[2018-01-08] MEDS: SYNTHROID 100 mcg TAB PO SCH (09:53)
[2018-01-08] MEDS: TOPAMAX TAB 100 MG PO SCH (09:53)
[2018-01-08] MEDS: PATIENT'S HOME MEDICATION (Dexlansoprazole [Dexilant] 60 MG) PO SCH (09:54)
[2018-01-08] MEDS: DIFLUNISAL 500 MG PO SCH (09:54)
[2018-01-08] MEDS: SEROquel TAB 100 MG PO SCH (22:24)
[2018-01-08] MEDS: TOPAMAX PO SCH (22:25)
[2018-01-08] MEDS: WELLBUTRIN XL 150 MG (DAILY) PO SCH ×2 (22:27→22:29)
[2018-01-09] MEDS: NS 1000 ML 1,000 ML IV SCH ×3 (05:18→17:34)
[2018-01-09] MEDS: ZOSYN VIAL 3.375 GM 3.375 GM in NS 100 ML IV + SPIKE MINIBAG* 100 ML IV SCH ×3 (05:19→20:59)
[2018-01-09] MEDS: FLEXERIL TAB 10 MG PO SCH ×3 (05:19→20:59)
[2018-01-09] MEDS: MORPHINE SULFATE INJ 2 MG INJ IVP PRN (05:25)
[2018-01-09 06:43] LABS: ALANINE AMINOTRANSFERASE 21 Units/L (12-78); ALBUMIN 2.7 g/dL (3.4-5.0); ALKALINE PHOSPHATASE 119 Units/L (46-116); BLOOD UREA NITROGEN 11 mg/dL (7-18); CARBON DIOXIDE 19.1 mmol/L (21-32); CREATININE 0.78 mg/dL (0.55-1.02); SODIUM 147 mmol/L (136-145); TOTAL PROTEIN 5.6 g/dL (6.4-8.2); eGFR BLACK RACES > 60 (>60); eGFR NON BLACK RACES > 60 (>60)
[2018-01-09 06:59] LABS: ASPARTATE AMINO TRANSFERASE < 6 Units/L (15-37)
[2018-01-09 07:00] LABS: CHLORIDE 118 mmol/L (98-107)
[2018-01-09 07:05] LABS: BASOPHILS % (AUTO) 0.4 % (0.2-1.0); HEMATOCRIT 27.9 % (36.0-47.0); HEMOGLOBIN 8.8 g/dL (12.0-16.0); LYMPHOCYTES # (AUTO) 1.4 X10^3/uL (1.3-2.9); LYMPHOCYTES % (AUTO) 33.5 % (21.0-51.0); MEAN CORPUSCULAR HEMOGLOBIN 21.9 pg (27.0-34.0); MEAN CORPUSCULAR HGB CONC 31.4 g/dL (33.0-35.0); MEAN CORPUSCULAR VOLUME 69.8 fL (80.0-100.0); MEAN PLATELET VOLUME 10.6 fL (7.4-11.0); MONOCYTES # (AUTO) 0.2 x10^3/uL (0.3-0.8); MONOCYTES % (AUTO) 4.7 % (0.0-13.0); NEUTROPHILS # (AUTO) 2.5 x10^3/uL (2.2-4.8); NEUTROPHILS % (AUTO) 61.4 % (42.0-75.0); PLATELET COUNT 184 X10^3/uL (150.0-450.0); RED CELL DISTRIBUTION WIDTH 20.3 % (11.6-16.5); WHITE BLOOD COUNT 4.1 X10^3/uL (3.6-10.0)
[2018-01-09] MEDS: ELIQUIS PO SCH ×2 (08:04→20:42)
[2018-01-09] MEDS: NEURONTIN CAP 300 MG PO SCH ×2 (08:04→20:45)
[2018-01-09] MEDS: FOLIC ACID TAB 1 MG PO SCH (08:05)
[2018-01-09] MEDS: WELLBUTRIN XL 300 MG (DAILY) PO SCH ×2 (08:05→08:11)
[2018-01-09] MEDS: TOPAMAX TAB 100 MG PO SCH (08:05)
[2018-01-09] MEDS: SYNTHROID 100 mcg TAB PO SCH (08:05)
[2018-01-09] MEDS: BUSPAR PO SCH ×2 (08:06→20:43)
[2018-01-09] MEDS: TAPENTADOL HCL 150 MG PO SCH ×2 (08:07→20:47)
[2018-01-09 08:08] LABS: PLATELET MORPHOLOGY COMMENT NORMAL (NORMAL)
[2018-01-09 08:09] LABS: ANISOCYTOSIS 1+; HYPOCHROMASIA 2+; MICROCYTOSIS 1+
[2018-01-09] MEDS: DIFLUNISAL 500 MG PO SCH (08:19)
[2018-01-09] MEDS: PATIENT'S HOME MEDICATION (Dexlansoprazole [Dexilant] 60 MG) PO SCH (08:19)
[2018-01-09] MEDS: TORADOL 30 MG VIAL IVP PRN ×2 (11:38→17:41)
[2018-01-09] MEDS: TOPAMAX PO SCH (20:40)
[2018-01-09] MEDS: KLONOPIN TAB 1 MG PO SCH (20:41)
[2018-01-09] MEDS: SEROquel TAB 100 MG PO SCH (20:42)
[2018-01-09] MEDS: WELLBUTRIN XL 150 MG (DAILY) PO SCH (20:45)
[2018-01-10] MEDS: FLEXERIL TAB 10 MG PO SCH ×3 (05:49→21:34)
[2018-01-10] MEDS: ZOSYN VIAL 3.375 GM 3.375 GM in NS 100 ML IV + SPIKE MINIBAG* 100 ML IV SCH ×3 (05:49→21:28)
[2018-01-10] MEDS: NS 1000 ML 1,000 ML IV SCH ×2 (05:52→12:28)
[2018-01-10 06:21] LABS: BASOPHILS % (AUTO) 0.2 % (0.2-1.0); EOSINOPHILS % (AUTO) 0.1 % (0.9-2.9); HEMATOCRIT 26.6 % (36.0-47.0); HEMOGLOBIN 8.4 g/dL (12.0-16.0); LYMPHOCYTES # (AUTO) 1.5 X10^3/uL (1.3-2.9); LYMPHOCYTES % (AUTO) 38.8 % (21.0-51.0); MEAN CORPUSCULAR HEMOGLOBIN 21.9 pg (27.0-34.0); MEAN CORPUSCULAR HGB CONC 31.6 g/dL (33.0-35.0); MEAN CORPUSCULAR VOLUME 69.3 fL (80.0-100.0); MEAN PLATELET VOLUME 10.8 fL (7.4-11.0); MONOCYTES # (AUTO) 0.2 x10^3/uL (0.3-0.8); MONOCYTES % (AUTO) 5.7 % (0.0-13.0); NEUTROPHILS # (AUTO) 2.1 x10^3/uL (2.2-4.8); NEUTROPHILS % (AUTO) 55.2 % (42.0-75.0); PLATELET COUNT 170 X10^3/uL (150.0-450.0); RED BLOOD COUNT 3.84 X10^6/uL (3.5-5.4); RED CELL DISTRIBUTION WIDTH 20.1 % (11.6-16.5); WHITE BLOOD COUNT 3.9 X10^3/uL (3.6-10.0)
[2018-01-10 06:36] LABS: ALANINE AMINOTRANSFERASE 20 Units/L (12-78); ALBUMIN 2.6 g/dL (3.4-5.0); ALKALINE PHOSPHATASE 109 Units/L (46-116); ASPARTATE AMINO TRANSFERASE 9 Units/L (15-37); BLOOD UREA NITROGEN 12 mg/dL (7-18); CALCIUM 7.1 mg/dL (8.5-10.1); CARBON DIOXIDE 18.2 mmol/L (21-32); COR CA(FOR HYPOALB) 8.2 mg/dL (8.5-10.1); CREATININE 0.75 mg/dL (0.55-1.02); SODIUM 144 mmol/L (136-145); TOTAL PROTEIN 5.4 g/dL (6.4-8.2); eGFR BLACK RACES > 60 (>60); eGFR NON BLACK RACES > 60 (>60)
[2018-01-10 06:39] LABS: CHLORIDE 115 mmol/L (98-107)
[2018-01-10 06:41] LABS: ANISOCYTOSIS 1+; HYPOCHROMASIA 2+; MICROCYTOSIS 1+; PLATELET MORPHOLOGY COMMENT NORMAL (NORMAL)
[2018-01-10] MEDS: TORADOL 30 MG VIAL IVP PRN (07:55)
[2018-01-10] MEDS: SYNTHROID 100 mcg TAB PO SCH (07:55)
[2018-01-10] MEDS: FOLIC ACID TAB 1 MG PO SCH (07:55)
[2018-01-10] MEDS: WELLBUTRIN XL 300 MG (DAILY) PO SCH (07:55)
[2018-01-10] MEDS: TOPAMAX TAB 100 MG PO SCH (07:55)
[2018-01-10] MEDS: ELIQUIS PO SCH ×2 (07:55→21:34)
[2018-01-10] MEDS: BUSPAR PO SCH ×2 (07:55→21:31)
[2018-01-10] MEDS: TAPENTADOL HCL 150 MG PO SCH ×2 (07:55→21:36)
[2018-01-10] MEDS: DIFLUNISAL 500 MG PO SCH (07:55)
[2018-01-10] MEDS: PATIENT'S HOME MEDICATION (Dexlansoprazole [Dexilant] 60 MG) PO SCH (07:55)
[2018-01-10] MEDS: NEURONTIN CAP 300 MG PO SCH ×2 (07:55→21:32)
--- NOTE | 2018-01-10 10:59 | DR.H&P ---
H&P - History & Physical for Day of: H&P Date: 01/07/18 - Chief Complaint Chief Complaint: left foot cellulitis, pressure ulcer, severe weakness - Allergies Allergies/Adverse Reactions: Allergies Allergy/AdvReac Type Severity Reaction Status Date / Time Latex, Natural Rubber Allergy Verified 01/07/18 17:19 - History of Present Illness History of Present Illness: is a 42 year old patient of ours who is a direct admission to the hospital for left leg cellulitis, severe weakness, and a new wound to the left upper leg/buttock area. Patient states that she has been unable to get out of bed due to severe weakness, therefore, she has urinated and had bowel movements on herself and has often had to lie in it until she has assistance. She is non-ambulatory. Patient also has a wound to her left foot for which she is seeing for treatment. Patient has a Medical HX of the following: Cataracts, Pneumonia, Gall Bladder Disease, UTI, Cystitis, Paraplegic, Hypothyroidism, Anemia, Anxiety, Depression, Bipolar Disorder, Cholecystectomy, Ortho Surgery. On admission, vitals were 98.9, 96, 18 , 100%RA, 119/60. Labs were obtained. Abnormal Labs include the following: HGB 9.4, HCT 30.1, MCV 69.2, MCH 21.7, MCHC 31.3, RDW 20.0, MPV 11.1, Potassium 3.2 , Chloride 109, Carbon Dioxide 19.5, Calcium 7.5, Corrected Calcium 8.1, AST 6, Alkaline Phosphatase 149, Albumin 3.3, A/G ratio 1.0. A catheter was inserted. Urinalysis obtained and revealed: WBC 5-10, RBC 3-5, LEUKOCYTES 1+, BACTERIA 3+ . A urine culture was set up. Wound cultures and blood cultures were also obtained. Patient was started on Zosyn 3.375gm IV TID for cellulitis and a urinary tract infection, morphine 1-2mg IVP Q4H PRN, potassium and magnesium protocols, and home medications were resumed. We plan to follow up with AM labs and continue to monitor patient. - Past Medical History Past Medical History: Anxiety, Depression, Migraines, Hypothyroidism Additional Medical History: lower extremity paralysis, bipolar - Past Surgical History Surgical History: Cholecystectomy, Ortho Surgery, Other - Family History Family Medical History: Diabetes Mellitus, Cancer, [place], Hypertension - Social History Does patient currently use any type of tobacco product: No Have you used tobacco products in the last 12 months: No Type of Tobacco Use: None Does any household member use tobacco: No Alcohol Use: None Drug Use: None - Medications Home Medications: Cyclobenzaprine HCl [Flexeril] 1 tab PO TID 01/07/18 [History Confirmed 01/07/18 ] Folic Acid [FOLIC ACID TAB 1 MG *] 1 tab PO DAILY 01/07/18 [History Confirmed ] Topiramate [TOPAMAX TAB 25 MG *] 2 tab PO HS 01/07/18 [History Confirmed ] - Review of Systems Constitutional: See HPI, Weakness Eyes: No Symptoms Reported ENT: No Symptoms Reported Respiratory: No Symptoms Reported Gastrointestinal: Nausea, Abdominal Pain Genitourinary: See HPI Musculoskeletal: Other (paraplegic) Skin: See HPI, Wound (left upper leg/buttock area, left foot ) Neurological: Weakness - Physical Exam Vital Signs: Temperature 99.3 F Pulse Rate [Right Brachial] 96 Respiratory Rate 18 Blood Pressure [Left Arm] 114/64 Blood Pressure [Right Arm] 106/53 Blood Pressure 119/56 O2 Sat by Pulse Oximetry 97 Oriented: Normal Eyes: Normal Ear: Normal Nose: Normal Throat: Normal Respiratory: Clear Throughout Cardiovascular: Normal. negative: S3, S4, Murmur : Normal Auscultation: Bowel Sounds: Normal Palpation: Normal Tenderness: Normal Skin: Red, Tender, Wound (left upper leg/buttock pressure ulcer, left foot ulcer ) Musculoskeletal: Motor Deficit Psychiatric: Normal Mood Description: Calm Affect: Normal Speech Pattern: Clear - Assessment/Plan (1) Lower extremity cellulitis Qualifiers: Laterality: left Qualified Code(s): L03.116 - Cellulitis of left lower limb Status: Acute Plan: zosyn 3.375gm iv tid, wound care, blood and wound cultures, continue to monitor (2) Infected stasis ulcer of left lower extremity Status: Acute Plan: zosyn 3.375gm iv tid, wound care, blood and wound cultures, continue to monitor (3) UTI (urinary tract infection) Qualifiers: Urinary tract infection type: acute cystitis Hematuria presence: with hematuria Qualified Code(s): N30.01 - Acute cystitis with hematuria Status: Acute Plan: zosyn 3.375gm iv tid, urine and blood cultures, mcclellan catheter, continue to monitor
[2018-01-10] MEDS ORDERED: MORPHINE SULFATE INJ 4 MG ONE ×2 (12:20→22:14)
[2018-01-10] MEDS: MORPHINE SULFATE INJ 2 MG INJ IVP PRN ×2 (12:27→22:23)
--- NOTE | 2018-01-10 18:54 | PCM.PROG ---
Progress Note - Progress Note for Day of Date: 01/08/18 - Subjective Subjective: IS BEING TREATED FOR LEFT LEG CELLULITIS, A URINARY TRACT INFECTION, AND MULTIPLE INFECTED PRESSURE ULCERS. TODAY, SHE IS ALERT AND ORIENTED, LYING IN BED ON MORNING ROUNDS. SHE CONTINUES WITH COMPLAINTS OF SEVERE WEAKNESS. LEFT LEG CONTINUES WITH ERYTHEM AND EDEMA. LEFT FOOT IS NOTED WITH A DRESSING THAT IS DRY AND INTACT. DRESSING IS ALSO NOTED TO LEFT UPPER LEG /BUTTOCK AREA, DRY AND INTACT. HER VITALS THIS MORNING ARE 98.2-102-20-98%-111/ 57. LABS WERE OBTAINED. ABNORMAL LAB VALUES INCLUDE THE FOLLOWING: HGB 8.5, HCT 26.7, CHLORIDE 116, CARBON DIOXIDE 16.2, CALCIUM 7.0, AST 6, ALK PHOS 123, TOTAL PROTEIN 5.7, ALBUMIN 2.8. URINE AND WOUND CULTURES ARE PENDING RESULTS. SHE IS CURRENTLY RECEIVING ZOSYN 3.375GM IV TID. WE WILL CONTINUE WITH CURRENT PLAN OF CARE TODAY. OTHERWISE, WE WILL FOLLOW UP WITH AM LABS AND CONTINUE TO MONITOR PATIENT. - Past Medical Family Social History Past Med/Fam/Surg Hx: No changes since H&P Allergies: Allergies Latex, Natural Rubber Allergy (Verified 01/07/18 17:19) - Review of Systems ROS: No change since H&P - Vital Signs and I&O's Vital Signs: Temperature 98.3 F Pulse Rate [Right Brachial] 105 Respiratory Rate 16 Blood Pressure [Left Arm] 111/65 Blood Pressure [Right Arm] 106/53 Blood Pressure 119/56 O2 Sat by Pulse Oximetry 98 Intake and Output: Intake & Output 01/08/18 01/09/18 01/10/18 01/11/18 11:59 11:59 11:59 11:59 Intake Total 460 1656 2780 1401 Output Total 1450 1700 Balance 377 547 3507 1401 - Physical Exam Oriented: Normal Eyes: Normal Ear: Normal Nose: Normal Throat: Normal Cardiovascular: Normal. negative: S3, S4, Murmur : Normal Auscultation: Bowel Sounds: Normal Palpation: Normal Tenderness: Normal Skin: Red, Tender, Wound (left upper leg/buttock pressure ulcer, left foot ulcer ) Musculoskeletal: Motor Deficit Psychiatric: Normal Mood Description: Calm Affect: Normal Speech Pattern: Clear - Laboratory and Diagnostics Result Diagrams: 01/10/18 05:45 01/10/18 05:45 Labs: 01/08/18 17:48 Foot - Left Gram Stain - Final 01/08/18 17:48 Foot - Left Wound Culture - Preliminary 01/07/18 20:26 Urine,Catheterized Urine Culture - Final Escherichia Coli 01/07/18 17:30 Blood Blood Culture - Preliminary 01/07/18 17:30 Blood Blood Culture - Preliminary Laboratory WBC 3.9 X10^3/uL (3.6-10.0) 01/10/18 05:45 RBC 3.84 X10^6/uL (3.5-5.4) 01/10/18 05:45 Hgb 8.4 g/dL (12.0-16.0) L 01/10/18 05:45 Hct 26.6 % (36.0-47.0) L 01/10/18 05:45 MCV 69.3 fL (80.0-100.0) L 01/10/18 05:45 MCH 21.9 pg (27.0-34.0) L 01/10/18 05:45 MCHC 31.6 g/dL (33.0-35.0) L 01/10/18 05:45 RDW 20.1 % (11.6-16.5) H 01/10/18 05:45 Plt Count 170 X10^3/uL (150.0-450.0) 01/10/18 05:45 Plt Count Comment Adequate (ADEQUATE) 01/10/18 05:45 MPV 10.8 fL (7.4-11.0) 01/10/18 05:45 Neut % (Auto) 55.2 % (42.0-75.0) 01/10/18 05:45 Lymph % (Auto) 38.8 % (21.0-51.0) 01/10/18 05:45 [place] % (Auto) 5.7 % (0.0-13.0) 01/10/18 05:45 Eos % (Auto) 0.1 % (0.9-2.9) L 01/10/18 05:45 Baso % (Auto) 0.2 % (0.2-1.0) 01/10/18 05:45 Neut # (Auto) 2.1 x10^3/uL (2.2-4.8) L 01/10/18 05:45 Lymph # (Auto) 1.5 X10^3/uL (1.3-2.9) 01/10/18 05:45 [place] # (Auto) 0.2 x10^3/uL (0.3-0.8) L 01/10/18 05:45 Eos # (Auto) 0.0 x10^3/uL (0.0-0.2) 01/10/18 05:45 Baso # (Auto) 0.0 X10^3/uL (0.0-0.1) 01/10/18 05:45 Absolute Nucleated RBC 0.1 /100WBC 01/10/18 05:45 Giant Platelets Rare 01/07/18 16:59 Plt Morphology Comment Normal (NORMAL) 01/10/18 05:45 RBC Morphology Abnormal (NORMAL) A 01/10/18 05:45 Hypochromasia 2+ A 01/10/18 05:45 Anisocytosis 1+ A 01/10/18 05:45 Microcytosis 1+ A 01/10/18 05:45 Sodium 144 mmol/L (136-145) 01/10/18 05:45 Corrected Sodium TNP 01/10/18 05:45 Potassium 3.9 mmol/L (3.5-5.1) 01/10/18 05:45 Chloride 115 mmol/L (98-107) H* 01/10/18 05:45 Carbon Dioxide 18.2 mmol/L (21-32) L 01/10/18 05:45 BUN 12 mg/dL (7-18) 01/10/18 05:45 Creatinine 0.75 mg/dL (0.55-1.02) 01/10/18 05:45 Est GFR (MDRD) Af Amer > 60 (>60) 01/10/18 05:45 Est GFR (MDRD) Non-Af > 60 (>60) 01/10/18 05:45 Glucose 98 mg/dL (65-99) 01/10/18 05:45 Calcium 7.1 mg/dL (8.5-10.1) L 01/10/18 05:45 Corrected Calcium 8.2 mg/dL (8.5-10.1) L 01/10/18 05:45 Magnesium 1.8 mg/dL (1.7-2.9) 05/18/18 16:59 Total Bilirubin 0.20 mg/dL (0.2-1.0) 01/10/18 05:45 AST 9 Units/L (15-37) L 01/10/18 05:45 ALT 20 Units/L (12-78) 01/10/18 05:45 Alkaline Phosphatase 109 Units/L (46-116) 01/10/18 05:45 Total Protein 5.4 g/dL (6.4-8.2) L 01/10/18 05:45 Albumin 2.6 g/dL (3.4-5.0) L 01/10/18 05:45 Globulin 2.8 g/dL (2.5-4.5) 01/10/18 05:45 Albumin/Globulin Ratio 0.9 Ratio (1.1-2.1) L 01/10/18 05:45 Specimen Type Catherized urine 01/07/18 20:26 Urine Color Yellow (YELLOW) 01/07/18 20: Urine Appearance Cloudy (CLEAR) 01/07/18 20:26 Urine pH 7.0 (5.0 - 8.0) 01/07/18 20:26 Ur Specific [place] 1.010 (1.000-1.030) 01/07/18 20:26 Urine Protein 1+ (NEGATIVE) 01/07/18 20: Urine Glucose (UA) Negative (NEGATIVE) 01/07/18 20: Urine Ketones Negative (NEGATIVE) 01/07/18 20: Urine Occult Blood 1+ (NEGATIVE) 01/07/18 20: Urine Nitrite Positive (NEGATIVE) 01/07/18 20: Urine Bilirubin Negative (NEGATIVE) 01/07/18 20:26 Urine Urobilinogen Normal (NORMAL) 01/07/18 20:26 Ur Leukocyte Esterase 1+ (NEGATIVE) 01/07/18 20: Urine RBC 3-5 /HPF (NONE SEEN) 01/07/18 20: Urine WBC 5-10 /HPF (NONE SEEN) 01/07/18 20:26 Ur Squamous Epith Cells Rare /HPF (NEGATIVE) 01/07/18 20: Urine Bacteria 3+ /HPF (NEGATIVE) 01/07/18 20:26 Ur Culture Indicated? Yes/culture set up 01/07/18 20: - Plan (1) Lower extremity cellulitis Status: Acute Qualifiers: Laterality: left Qualified Code(s): L03.116 - Cellulitis of left lower limb Plan: zosyn 3.375gm iv tid, wound care, blood and wound cultures, continue to monitor (2) Infected stasis ulcer of left lower extremity Status: Acute Plan: zosyn 3.375gm iv tid, wound care, blood and wound cultures, continue to monitor (3) UTI (urinary tract infection) Status: Acute Qualifiers: Urinary tract infection type: acute cystitis Hematuria presence: with hematuria Qualified Code(s): N30.01 - Acute cystitis with hematuria Plan: zosyn 3.375gm iv tid, urine and blood cultures, mcclellan catheter, continue to monitor
--- NOTE | 2018-01-10 18:55 | PCM.PROG ---
Progress Note - Progress Note for Day of Date: 01/09/18 - Subjective Subjective: IS BEING TREATED FOR LEFT LEG CELLULITIS, A URINARY TRACT INFECTION, AND MULTIPLE INFECTED PRESSURE ULCERS. TODAY, SHE IS ALERT AND ORIENTED, LYING IN BED ON MORNING ROUNDS. SHE CONTINUES WITH COMPLAINTS OF SEVERE WEAKNESS. LEFT LEG CONTINUES WITH ERYTHEM AND EDEMA. LEFT FOOT IS NOTED WITH A DRESSING THAT IS DRY AND INTACT. DRESSING IS ALSO NOTED TO LEFT UPPER LEG /BUTTOCK AREA, DRY AND INTACT. PATIENT IS NORMALLY ABLE TO TRANSFER FROM THE BED TO HER CHAIR, HOWEVER, DUE TO SEVERE WEAKNESS, PATIENT IS UNABLE TO AT THIS TIME. HER VITALS THIS MORNING ARE 99.4-105-20-99%-127/72. LABS WERE OBTAINED. ABNORMAL LAB VALUES INCLUDE THE FOLLOWING: HGB 8.8, HCT 27.9, SODIUM 147, CHLORIDE 118, CARBON DIOXIDE 19.1, GLUCOSE 105, CALCIUM 7.0, AST <6, ALK PHOS 119, TOTAL PROTEIN 5.6, ALBUMIN 2.7. URINE CULTURE REPORTS GROWTH OF E.COLI. SHE IS CURRENTLY RECEIVING ZOSYN 3.375GM IV TID. WE HAVE ORDERED FOR PHYSICAL THERAPY TO EVALUATE PATIENT. PATIENT REQUEST SHORT TERM PLACEMENT AT [facility] IN [place], [place] FOR PHYSICAL THERAPY. WE ARE IN AGREEMENT WITH PLAN AND WILL DISCUSS WITH CASE MANAGEMENT. WE WILL CONTINUE WITH CURRENT PLAN OF CARE TODAY. OTHERWISE, WE WILL FOLLOW UP WITH AM LABS AND CONTINUE TO MONITOR PATIENT. - Past Medical Family Social History Past Med/Fam/Surg Hx: No changes since H&P Allergies: Allergies Latex, Natural Rubber Allergy (Verified 01/07/18 17:19) - Review of Systems ROS: No change since H&P - Vital Signs and I&O's Vital Signs: Temperature 98.3 F Pulse Rate [Right Brachial] 105 Respiratory Rate 16 Blood Pressure [Left Arm] 111/65 Blood Pressure [Right Arm] 106/53 Blood Pressure 119/56 O2 Sat by Pulse Oximetry 98 Intake and Output: Intake & Output 01/08/18 01/09/18 01/10/18 01/11/18 11:59 11:59 11:59 11:59 Intake Total 460 1656 2780 1401 Output Total 1450 1700 Balance 428 164 5048 1401 - Physical Exam Oriented: Normal Eyes: Normal Ear: Normal Nose: Normal Throat: Normal Cardiovascular: Normal. negative: S3, S4, Murmur : Normal Auscultation: Bowel Sounds: Normal Palpation: Normal Tenderness: Normal Skin: Red, Tender, Wound (left upper leg/buttock pressure ulcer, left foot ulcer ) Musculoskeletal: Motor Deficit Psychiatric: Normal Mood Description: Calm Affect: Normal Speech Pattern: Clear - Laboratory and Diagnostics Result Diagrams: 01/10/18 05:45 01/10/18 05:45 Labs: 01/08/18 17:48 Foot - Left Gram Stain - Final 01/08/18 17:48 Foot - Left Wound Culture - Preliminary 01/07/18 20:26 Urine,Catheterized Urine Culture - Final Escherichia Coli 01/07/18 17:30 Blood Blood Culture - Preliminary 01/07/18 17:30 Blood Blood Culture - Preliminary Laboratory WBC 3.9 X10^3/uL (3.6-10.0) 01/10/18 05:45 RBC 3.84 X10^6/uL (3.5-5.4) 01/10/18 05:45 Hgb 8.4 g/dL (12.0-16.0) L 01/10/18 05:45 Hct 26.6 % (36.0-47.0) L 01/10/18 05:45 MCV 69.3 fL (80.0-100.0) L 01/10/18 05:45 MCH 21.9 pg (27.0-34.0) L 01/10/18 05:45 MCHC 31.6 g/dL (33.0-35.0) L 01/10/18 05:45 RDW 20.1 % (11.6-16.5) H 01/10/18 05:45 Plt Count 170 X10^3/uL (150.0-450.0) 01/10/18 05:45 Plt Count Comment Adequate (ADEQUATE) 01/10/18 05:45 MPV 10.8 fL (7.4-11.0) 01/10/18 05:45 Neut % (Auto) 55.2 % (42.0-75.0) 01/10/18 05:45 Lymph % (Auto) 38.8 % (21.0-51.0) 01/10/18 05:45 [place] % (Auto) 5.7 % (0.0-13.0) 01/10/18 05:45 Eos % (Auto) 0.1 % (0.9-2.9) L 01/10/18 05:45 Baso % (Auto) 0.2 % (0.2-1.0) 01/10/18 05:45 Neut # (Auto) 2.1 x10^3/uL (2.2-4.8) L 01/10/18 05:45 Lymph # (Auto) 1.5 X10^3/uL (1.3-2.9) 01/10/18 05:45 [place] # (Auto) 0.2 x10^3/uL (0.3-0.8) L 01/10/18 05:45 Eos # (Auto) 0.0 x10^3/uL (0.0-0.2) 01/10/18 05:45 Baso # (Auto) 0.0 X10^3/uL (0.0-0.1) 01/10/18 05:45 Absolute Nucleated RBC 0.1 /100WBC 01/10/18 05:45 Giant Platelets Rare 01/07/18 16:59 Plt Morphology Comment Normal (NORMAL) 01/10/18 05:45 RBC Morphology Abnormal (NORMAL) A 01/10/18 05:45 Hypochromasia 2+ A 01/10/18 05:45 Anisocytosis 1+ A 01/10/18 05:45 Microcytosis 1+ A 01/10/18 05:45 Sodium 144 mmol/L (136-145) 01/10/18 05:45 Corrected Sodium TNP 01/10/18 05:45 Potassium 3.9 mmol/L (3.5-5.1) 01/10/18 05:45 Chloride 115 mmol/L (98-107) H* 01/10/18 05:45 Carbon Dioxide 18.2 mmol/L (21-32) L 01/10/18 05:45 BUN 12 mg/dL (7-18) 01/10/18 05:45 Creatinine 0.75 mg/dL (0.55-1.02) 01/10/18 05:45 Est GFR (MDRD) Af Amer > 60 (>60) 01/10/18 05:45 Est GFR (MDRD) Non-Af > 60 (>60) 01/10/18 05:45 Glucose 98 mg/dL (65-99) 01/10/18 05:45 Calcium 7.1 mg/dL (8.5-10.1) L 01/10/18 05:45 Corrected Calcium 8.2 mg/dL (8.5-10.1) L 01/10/18 05:45 Magnesium 1.8 mg/dL (1.7-2.9) 01/07/18 16:59 Total Bilirubin 0.20 mg/dL (0.2-1.0) 01/10/18 05:45 AST 9 Units/L (15-37) L 01/10/18 05:45 ALT 20 Units/L (12-78) 01/10/18 05:45 Alkaline Phosphatase 109 Units/L (46-116) 01/10/18 05:45 Total Protein 5.4 g/dL (6.4-8.2) L 01/10/18 05:45 Albumin 2.6 g/dL (3.4-5.0) L 01/10/18 05:45 Globulin 2.8 g/dL (2.5-4.5) 01/10/18 05:45 Albumin/Globulin Ratio 0.9 Ratio (1.1-2.1) L 01/10/18 05:45 Specimen Type Catherized urine 01/07/18 20:26 Urine Color Yellow (YELLOW) 01/07/18 20: Urine Appearance Cloudy (CLEAR) 01/07/18 20:26 Urine pH 7.0 (5.0 - 8.0) 01/07/18 20:26 Ur Specific [place] 1.010 (1.000-1.030) 01/07/18 20:26 Urine Protein 1+ (NEGATIVE) 01/07/18 20: Urine Glucose (UA) Negative (NEGATIVE) 01/07/18 20: Urine Ketones Negative (NEGATIVE) 01/07/18 20: Urine Occult Blood 1+ (NEGATIVE) 01/07/18 20: Urine Nitrite Positive (NEGATIVE) 01/07/18 20: Urine Bilirubin Negative (NEGATIVE) 01/07/18 20: Urine Urobilinogen Normal (NORMAL) 01/07/18 20:26 Ur Leukocyte Esterase 1+ (NEGATIVE) 01/07/18 20: Urine RBC 3-5 /HPF (NONE SEEN) 01/07/18 20:26 Urine WBC 5-10 /HPF (NONE SEEN) 01/07/18 20:26 Ur Squamous Epith Cells Rare /HPF (NEGATIVE) 01/07/18 20:26 Urine Bacteria 3+ /HPF (NEGATIVE) 01/07/18 20:26 Ur Culture Indicated? Yes/culture set up 01/07/18 20:26 - Plan (1) Lower extremity cellulitis Status: Acute Qualifiers: Laterality: left Qualified Code(s): L03.116 - Cellulitis of left lower limb Plan: zosyn 3.375gm iv tid, wound care, blood and wound cultures, continue to monitor (2) Infected stasis ulcer of left lower extremity Status: Acute Plan: zosyn 3.375gm iv tid, wound care, blood and wound cultures, continue to monitor (3) UTI (urinary tract infection) Status: Acute Qualifiers: Urinary tract infection type: acute cystitis Hematuria presence: with hematuria Qualified Code(s): N30.01 - Acute cystitis with hematuria Plan: zosyn 3.375gm iv tid, urine and blood cultures, mcclellan catheter, continue to monitor
[2018-01-10] MEDS: SEROquel TAB 100 MG PO SCH (21:30)
[2018-01-10] MEDS: WELLBUTRIN XL 150 MG (DAILY) PO SCH (21:32)
[2018-01-10] MEDS: TOPAMAX PO SCH (21:32)
[2018-01-10] MEDS: KLONOPIN TAB 1 MG PO SCH (21:34)
--- NOTE | 2018-01-10 21:54 | PCM.PROG ---
Progress Note - Progress Note for Day of Date: 01/10/18 - Subjective Subjective: IS BEING TREATED FOR LEFT LEG CELLULITIS, A URINARY TRACT INFECTION, AND MULTIPLE INFECTED PRESSURE ULCERS. TODAY, SHE IS ALERT AND ORIENTED, LYING IN BED ON MORNING ROUNDS. SHE CONTINUES WITH COMPLAINTS OF SEVERE WEAKNESS. LEFT LEG CONTINUES WITH ERYTHEM AND EDEMA. LEFT FOOT IS NOTED WITH A DRESSING THAT IS DRY AND INTACT. DRESSING IS ALSO NOTED TO LEFT UPPER LEG /BUTTOCK AREA, DRY AND INTACT. HER VITALS THIS MORNING ARE 98.8-97-18-98%-106/ 53. LABS WERE OBTAINED. ABNORMAL LAB VALUES INCLUDE THE FOLLOWING: HGB 8.4, HCT 26.6, CHLORIDE 115, CARBON DIOXIDE 18.2, CALCIUM 7.1, AST 9, TOTAL PROTEIN 5.4, ALBUMIN 2.6. URINE CULTURE REPORTS GROWTH OF E.COLI. SHE IS CURRENTLY RECEIVING ZOSYN 3.375GM IV TID. PRELIMINARY WOUND CULTURE IS REPORTING GROWTH OF GRAM NEGATIVE RODS. WE HAVE ORDERED FOR PHYSICAL THERAPY TO EVALUATE PATIENT. WE ARE ARRANGING PLACEMENT AT [facility] FOR REHAB AFTER PATIENT IS DISCHARGED. WE WILL CONTINUE WITH CURRENT PLAN OF CARE TODAY. OTHERWISE, WE WILL FOLLOW UP WITH AM LABS AND CONTINUE TO MONITOR PATIENT. - Past Medical Family Social History Past Med/Fam/Surg Hx: No changes since H&P Allergies: Allergies Latex, Natural Rubber Allergy (Verified 01/07/18 17:19) - Review of Systems ROS: No change since H&P - Vital Signs and I&O's Vital Signs: Temperature 98.3 F Pulse Rate [Right Brachial] 105 Respiratory Rate 16 Blood Pressure [Left Arm] 111/65 Blood Pressure [Right Arm] 106/53 Blood Pressure 119/56 O2 Sat by Pulse Oximetry 98 Intake and Output: Intake & Output 01/08/18 01/09/18 01/10/18 01/11/18 11:59 11:59 11:59 11:59 Intake Total 460 1656 2780 1401 Output Total 1450 1700 Balance 573 962 4606 1401 - Physical Exam Oriented: Normal Eyes: Normal Ear: Normal Nose: Normal Throat: Normal Cardiovascular: Normal. negative: S3, S4, Murmur : Normal Auscultation: Bowel Sounds: Normal Palpation: Normal Tenderness: Normal Skin: Red, Tender, Wound (left upper leg/buttock pressure ulcer, left foot ulcer ) Musculoskeletal: Motor Deficit Psychiatric: Normal Mood Description: Calm Affect: Normal Speech Pattern: Clear, Appropriate - Laboratory and Diagnostics Result Diagrams: 01/10/18 05:45 01/10/18 05:45 Labs: 01/08/18 17:48 Foot - Left Gram Stain - Final 01/08/18 17:48 Foot - Left Wound Culture - Preliminary 01/07/18 20:26 Urine,Catheterized Urine Culture - Final Escherichia Coli 01/07/18 17:30 Blood Blood Culture - Preliminary 01/07/18 17:30 Blood Blood Culture - Preliminary Laboratory WBC 3.9 X10^3/uL (3.6-10.0) 01/10/18 05:45 RBC 3.84 X10^6/uL (3.5-5.4) 01/10/18 05:45 Hgb 8.4 g/dL (12.0-16.0) L 01/10/18 05:45 Hct 26.6 % (36.0-47.0) L 01/10/18 05:45 MCV 69.3 fL (80.0-100.0) L 01/10/18 05:45 MCH 21.9 pg (27.0-34.0) L 01/10/18 05:45 MCHC 31.6 g/dL (33.0-35.0) L 01/10/18 05:45 RDW 20.1 % (11.6-16.5) H 01/10/18 05:45 Plt Count 170 X10^3/uL (150.0-450.0) 01/10/18 05:45 Plt Count Comment Adequate (ADEQUATE) 01/10/18 05:45 MPV 10.8 fL (7.4-11.0) 01/10/18 05:45 Neut % (Auto) 55.2 % (42.0-75.0) 01/10/18 05:45 Lymph % (Auto) 38.8 % (21.0-51.0) 01/10/18 05:45 [place] % (Auto) 5.7 % (0.0-13.0) 01/10/18 05:45 Eos % (Auto) 0.1 % (0.9-2.9) L 01/10/18 05:45 Baso % (Auto) 0.2 % (0.2-1.0) 01/10/18 05:45 Neut # (Auto) 2.1 x10^3/uL (2.2-4.8) L 01/10/18 05:45 Lymph # (Auto) 1.5 X10^3/uL (1.3-2.9) 01/10/18 05:45 [place] # (Auto) 0.2 x10^3/uL (0.3-0.8) L 01/10/18 05:45 Eos # (Auto) 0.0 x10^3/uL (0.0-0.2) 01/10/18 05:45 Baso # (Auto) 0.0 X10^3/uL (0.0-0.1) 01/10/18 05:45 Absolute Nucleated RBC 0.1 /100WBC 01/10/18 05:45 Giant Platelets Rare 01/07/18 16:59 Plt Morphology Comment Normal (NORMAL) 01/10/18 05:45 RBC Morphology Abnormal (NORMAL) A 01/10/18 05:45 Hypochromasia 2+ A 01/10/18 05:45 Anisocytosis 1+ A 01/10/18 05:45 Microcytosis 1+ A 01/10/18 05:45 Sodium 144 mmol/L (136-145) 01/10/18 05:45 Corrected Sodium TNP 01/10/18 05:45 Potassium 3.9 mmol/L (3.5-5.1) 01/10/18 05:45 Chloride 115 mmol/L (98-107) H* 01/10/18 05:45 Carbon Dioxide 18.2 mmol/L (21-32) L 01/10/18 05:45 BUN 12 mg/dL (7-18) 01/10/18 05:45 Creatinine 0.75 mg/dL (0.55-1.02) 01/10/18 05:45 Est GFR (MDRD) Af Amer > 60 (>60) 01/10/18 05:45 Est GFR (MDRD) Non-Af > 60 (>60) 01/10/18 05:45 Glucose 98 mg/dL (65-99) 01/10/18 05:45 Calcium 7.1 mg/dL (8.5-10.1) L 01/10/18 05:45 Corrected Calcium 8.2 mg/dL (8.5-10.1) L 01/10/18 05:45 Magnesium 1.8 mg/dL (1.7-2.9) 01/07/18 16:59 Total Bilirubin 0.20 mg/dL (0.2-1.0) 01/10/18 05:45 AST 9 Units/L (15-37) L 01/10/18 05:45 ALT 20 Units/L (12-78) 01/10/18 05:45 Alkaline Phosphatase 109 Units/L (46-116) 01/10/18 05:45 Total Protein 5.4 g/dL (6.4-8.2) L 01/10/18 05:45 Albumin 2.6 g/dL (3.4-5.0) L 01/10/18 05:45 Globulin 2.8 g/dL (2.5-4.5) 01/10/18 05:45 Albumin/Globulin Ratio 0.9 Ratio (1.1-2.1) L 01/10/18 05:45 Specimen Type Catherized urine 01/07/18 20:26 Urine Color Yellow (YELLOW) 01/07/18 20: Urine Appearance Cloudy (CLEAR) 01/07/18 20: Urine pH 7.0 (5.0 - 8.0) 01/07/18 20: Ur Specific [place] 1.010 (1.000-1.030) 01/07/18 20:26 Urine Protein 1+ (NEGATIVE) 01/07/18 20: Urine Glucose (UA) Negative (NEGATIVE) 01/07/18 20: Urine Ketones Negative (NEGATIVE) 01/07/18 20: Urine Occult Blood 1+ (NEGATIVE) 01/07/18 20: Urine Nitrite Positive (NEGATIVE) 01/07/18 20: Urine Bilirubin Negative (NEGATIVE) 01/07/18 20: Urine Urobilinogen Normal (NORMAL) 01/07/18 20: Ur Leukocyte Esterase 1+ (NEGATIVE) 01/07/18 20:26 Urine RBC 3-5 /HPF (NONE SEEN) 01/07/18 20:26 Urine WBC 5-10 /HPF (NONE SEEN) 01/07/18 20:26 Ur Squamous Epith Cells Rare /HPF (NEGATIVE) 01/07/18 20:26 Urine Bacteria 3+ /HPF (NEGATIVE) 01/07/18 20:26 Ur Culture Indicated? Yes/culture set up 01/07/18 20:26 - Plan (1) Lower extremity cellulitis Status: Acute Qualifiers: Laterality: left Qualified Code(s): L03.116 - Cellulitis of left lower limb Plan: zosyn 3.375gm iv tid, wound care, blood and wound cultures, continue to monitor (2) Infected stasis ulcer of left lower extremity Status: Acute Plan: zosyn 3.375gm iv tid, wound care, blood and wound cultures, continue to monitor (3) UTI (urinary tract infection) Status: Acute Qualifiers: Urinary tract infection type: acute cystitis Hematuria presence: with hematuria Qualified Code(s): N30.01 - Acute cystitis with hematuria Plan: zosyn 3.375gm iv tid, urine and blood cultures, mcclellan catheter, continue to monitor (4) Generalized weakness Status: Acute
[2018-01-11] MEDS: ZOSYN VIAL 3.375 GM 3.375 GM in NS 100 ML IV + SPIKE MINIBAG* 100 ML IV SCH (05:32)
[2018-01-11] MEDS: FLEXERIL TAB 10 MG PO SCH ×3 (05:32→21:29)
[2018-01-11] MEDS: NS 1000 ML 1,000 ML IV SCH (05:32)
[2018-01-11] MEDS: PHENERGAN TAB 25 MG PO PRN ×2 (05:38→11:31)
[2018-01-11] MEDS ORDERED: MORPHINE SULFATE INJ 4 MG ONE (05:41)
[2018-01-11] MEDS: MORPHINE SULFATE INJ 2 MG INJ IVP PRN (05:45)
[2018-01-11 06:22] LABS: BASOPHILS % (AUTO) 0.2 % (0.2-1.0); EOSINOPHILS % (AUTO) 0.1 % (0.9-2.9); HEMATOCRIT 27.3 % (36.0-47.0); HEMOGLOBIN 8.7 g/dL (12.0-16.0); LYMPHOCYTES # (AUTO) 1.4 X10^3/uL (1.3-2.9); LYMPHOCYTES % (AUTO) 29.2 % (21.0-51.0); MEAN CORPUSCULAR HGB CONC 31.8 g/dL (33.0-35.0); MEAN CORPUSCULAR VOLUME 69.3 fL (80.0-100.0); MEAN PLATELET VOLUME 10.8 fL (7.4-11.0); MONOCYTES # (AUTO) 0.4 x10^3/uL (0.3-0.8); NEUTROPHILS % (AUTO) 62.5 % (42.0-75.0); PLATELET COUNT 172 X10^3/uL (150.0-450.0); RED BLOOD COUNT 3.94 X10^6/uL (3.5-5.4); RED CELL DISTRIBUTION WIDTH 19.9 % (11.6-16.5); WHITE BLOOD COUNT 4.8 X10^3/uL (3.6-10.0)
[2018-01-11 06:44] LABS: HYPOCHROMASIA 1+; MICROCYTOSIS 1+; PLATELET MORPHOLOGY COMMENT NORMAL (NORMAL)
[2018-01-11 06:56] LABS: ALANINE AMINOTRANSFERASE 44 Units/L (12-78); ALBUMIN 2.6 g/dL (3.4-5.0); ALKALINE PHOSPHATASE 114 Units/L (46-116); ASPARTATE AMINO TRANSFERASE 25 Units/L (15-37); BLOOD UREA NITROGEN 14 mg/dL (7-18); CALCIUM 6.9 mg/dL (8.5-10.1); CARBON DIOXIDE 18.3 mmol/L (21-32); CHLORIDE 113 mmol/L (98-107); CREATININE 0.82 mg/dL (0.55-1.02); SODIUM 142 mmol/L (136-145); TOTAL PROTEIN 5.6 g/dL (6.4-8.2); eGFR BLACK RACES > 60 (>60); eGFR NON BLACK RACES > 60 (>60)
[2018-01-11] MEDS: BUSPAR PO SCH ×2 (09:51→21:27)
[2018-01-11] MEDS: WELLBUTRIN XL 300 MG (DAILY) PO SCH (09:51)
[2018-01-11] MEDS: TOPAMAX TAB 100 MG PO SCH (09:51)
[2018-01-11] MEDS: NEURONTIN CAP 300 MG PO SCH ×2 (09:52→21:27)
[2018-01-11] MEDS: ELIQUIS PO SCH ×2 (09:52→21:28)
[2018-01-11] MEDS: FOLIC ACID TAB 1 MG PO SCH (09:52)
[2018-01-11] MEDS: SYNTHROID 100 mcg TAB PO SCH (09:53)
[2018-01-11] MEDS: PATIENT'S HOME MEDICATION (Dexlansoprazole [Dexilant] 60 MG) PO SCH (09:53)
[2018-01-11] MEDS: DIFLUNISAL 500 MG PO SCH (09:54)
[2018-01-11] MEDS: TAPENTADOL HCL 150 MG PO SCH ×2 (09:55→22:36)
[2018-01-11] MEDS: FORTAZ or TAZICEF INJ 1 GM in NS 100 ML IV + SPIKE MINIBAG* 100 ML IV SCH ×3 (10:42→21:30)
[2018-01-11] MEDS: TORADOL 30 MG VIAL IVP PRN ×2 (11:31→22:11)
[2018-01-11] MEDS ORDERED: NYSTATIN POWDER ONE (15:35)
[2018-01-11] MEDS: NYSTATIN POWDER TOP SCH ×2 (15:40→21:28)
--- NOTE | 2018-01-11 19:37 | PCM.PROG ---
Progress Note - Progress Note for Day of Date: 01/11/18 - Subjective Subjective: IS BEING TREATED FOR LEFT LEG CELLULITIS, A URINARY TRACT INFECTION, AND MULTIPLE INFECTED PRESSURE ULCERS. TODAY, SHE IS ALERT AND ORIENTED, LYING IN BED ON MORNING ROUNDS. SHE CONTINUES WITH COMPLAINTS OF SEVERE WEAKNESS. LEFT LEG CONTINUES WITH ERYTHEM AND EDEMA. LEFT FOOT IS NOTED WITH A DRESSING THAT IS DRY AND INTACT. DRESSING IS ALSO NOTED TO LEFT UPPER LEG /BUTTOCK AREA, DRY AND INTACT. HER VITALS THIS MORNING ARE 98.7-107-20-98%-105/ 57. LABS WERE OBTAINED. ABNORMAL LAB VALUES INCLUDE THE FOLLOWING: HGB 8.7, HCT 27.3, CHLORIDE 113, CARBON DIOXIDE 18.3, CALCIUM 6.9, TOTAL PROTEIN 5.6, ALBUMIN 2.6. URINE CULTURE REPORTS GROWTH OF E.COLI. WOUND CULTURE REPORTS GROWTH OF PSEUDOMONAS AERUGINOSA. SHE IS CURRENTLY RECEIVING ZOSYN 3.375GM IV TID. WE WILL DISCONTINUE THE ZOSYN TODAY AND START FORTAZ 1 GM IV TID. PHYSICAL THERAPY CONTINUES TO WORK WITH PATIENT. WE WILL CONTINUE WITH CURRENT PLAN OF CARE TODAY. OTHERWISE, WE WILL FOLLOW UP WITH AM LABS AND CONTINUE TO MONITOR PATIENT. - Past Medical Family Social History Past Med/Fam/Surg Hx: No changes since H&P Allergies: Allergies Latex, Natural Rubber Allergy (Verified 01/07/18 17:19) - Review of Systems ROS: No change since H&P - Vital Signs and I&O's Vital Signs: Temperature 98.8 F Pulse Rate [Left Brachial] 112 Pulse Rate [Right Brachial] 104 Respiratory Rate 20 Blood Pressure [Left Arm] 107/79 Blood Pressure [Right Arm] 106/53 Blood Pressure 119/56 O2 Sat by Pulse Oximetry 99 Intake and Output: Intake & Output 01/09/18 01/10/18 01/11/18 01/12/18 11:59 11:59 11:59 11:59 Intake Total 1656 2780 3321 360 Output Total 1450 1700 900 Balance 206 1080 2421 360 - Physical Exam Oriented: Normal Eyes: Normal Ear: Normal Nose: Normal Throat: Normal Cardiovascular: Normal. negative: S3, S4, Murmur : Normal Auscultation: Bowel Sounds: Normal Palpation: Normal Tenderness: Normal Skin: Red, Tender, Wound (left upper leg/buttock pressure ulcer, left foot ulcer ) Musculoskeletal: Motor Deficit Psychiatric: Normal Mood Description: Calm Affect: Normal Speech Pattern: Clear, Appropriate - Laboratory and Diagnostics Result Diagrams: 01/11/18 05:47 01/11/18 05:47 Labs: 01/08/18 17:48 Foot - Left Gram Stain - Final 01/08/18 17:48 Foot - Left Wound Culture - Final Pseudomonas Aeruginosa 01/07/18 20:26 Urine,Catheterized Urine Culture - Final Escherichia Coli 01/07/18 17:30 Blood Blood Culture - Preliminary 01/07/18 17:30 Blood Blood Culture - Preliminary Laboratory WBC 4.8 X10^3/uL (3.6-10.0) 01/11/18 05:47 RBC 3.94 X10^6/uL (3.5-5.4) 01/11/18 05:47 Hgb 8.7 g/dL (12.0-16.0) L 01/11/18 05:47 Hct 27.3 % (36.0-47.0) L 01/11/18 05:47 MCV 69.3 fL (80.0-100.0) L 01/11/18 05:47 MCH 22.0 pg (27.0-34.0) L 01/11/18 05:47 MCHC 31.8 g/dL (33.0-35.0) L 01/11/18 05:47 RDW 19.9 % (11.6-16.5) H 01/11/18 05:47 Plt Count 172 X10^3/uL (150.0-450.0) 01/11/18 05:47 Plt Count Comment Adequate (ADEQUATE) 01/11/18 05:47 MPV 10.8 fL (7.4-11.0) 01/11/18 05:47 Neut % (Auto) 62.5 % (42.0-75.0) 01/11/18 05:47 Lymph % (Auto) 29.2 % (21.0-51.0) 01/11/18 05:47 [place] % (Auto) 8.0 % (0.0-13.0) 01/11/18 05:47 Eos % (Auto) 0.1 % (0.9-2.9) L 01/11/18 05:47 Baso % (Auto) 0.2 % (0.2-1.0) 01/11/18 05:47 Neut # (Auto) 3.0 x10^3/uL (2.2-4.8) 01/11/18 05:47 Lymph # (Auto) 1.4 X10^3/uL (1.3-2.9) 01/11/18 05:47 [place] # (Auto) 0.4 x10^3/uL (0.3-0.8) 01/11/18 05:47 Eos # (Auto) 0.0 x10^3/uL (0.0-0.2) 01/11/18 05:47 Baso # (Auto) 0.0 X10^3/uL (0.0-0.1) 01/11/18 05:47 Absolute Nucleated RBC 0.0 /100WBC 01/11/18 05:47 Giant Platelets Rare 01/07/18 16:59 Plt Morphology Comment Normal (NORMAL) 01/11/18 05:47 RBC Morphology Abnormal (NORMAL) A 01/11/18 05:47 Hypochromasia 1+ A 01/11/18 05:47 Anisocytosis 1+ A 01/10/18 05:45 Microcytosis 1+ A 01/11/18 05:47 Sodium 142 mmol/L (136-145) 01/11/18 05:47 Corrected Sodium TNP 01/11/18 05:47 Potassium 3.5 mmol/L (3.5-5.1) 01/11/18 05:47 Chloride 113 mmol/L (98-107) H 01/11/18 05:47 Carbon Dioxide 18.3 mmol/L (21-32) L 01/11/18 05:47 BUN 14 mg/dL (7-18) 01/11/18 05:47 Creatinine 0.82 mg/dL (0.55-1.02) 01/11/18 05:47 Est GFR (MDRD) Af Amer > 60 (>60) 01/11/18 05:47 Est GFR (MDRD) Non-Af > 60 (>60) 01/11/18 05:47 Glucose 98 mg/dL (65-99) 01/11/18 05:47 Calcium 6.9 mg/dL (8.5-10.1) L 01/11/18 05:47 Corrected Calcium 8.0 mg/dL (8.5-10.1) L 01/11/18 05:47 Magnesium 1.8 mg/dL (1.7-2.9) 01/07/18 16:59 Total Bilirubin 0.10 mg/dL (0.2-1.0) L 01/11/18 05:47 AST 25 Units/L (15-37) 01/11/18 05:47 ALT 44 Units/L (12-78) 01/11/18 05:47 Alkaline Phosphatase 114 Units/L (46-116) 01/11/18 05:47 Total Protein 5.6 g/dL (6.4-8.2) L 01/11/18 05:47 Albumin 2.6 g/dL (3.4-5.0) L 01/11/18 05:47 Globulin 3.0 g/dL (2.5-4.5) 01/11/18 05:47 Albumin/Globulin Ratio 0.9 Ratio (1.1-2.1) L 01/11/18 05:47 Specimen Type Catherized urine 01/07/18 20:26 Urine Color Yellow (YELLOW) 01/07/18 20: Urine Appearance Cloudy (CLEAR) 01/07/18 20: Urine pH 7.0 (5.0 - 8.0) 01/07/18 20: Ur Specific [place] 1.010 (1.000-1.030) 01/07/18 20:26 Urine Protein 1+ (NEGATIVE) 01/07/18 20: Urine Glucose (UA) Negative (NEGATIVE) 01/07/18 20: Urine Ketones Negative (NEGATIVE) 01/07/18 20: Urine Occult Blood 1+ (NEGATIVE) 01/07/18 20: Urine Nitrite Positive (NEGATIVE) 01/07/18 20: Urine Bilirubin Negative (NEGATIVE) 01/07/18 20: Urine Urobilinogen Normal (NORMAL) 01/07/18 20: Ur Leukocyte Esterase 1+ (NEGATIVE) 01/07/18 20:26 Urine RBC 3-5 /HPF (NONE SEEN) 01/07/18 20:26 Urine WBC 5-10 /HPF (NONE SEEN) 01/07/18 20:26 Ur Squamous Epith Cells Rare /HPF (NEGATIVE) 01/07/18 20:26 Urine Bacteria 3+ /HPF (NEGATIVE) 01/07/18 20:26 Ur Culture Indicated? Yes/culture set up 01/07/18 20:26 - Plan (1) Lower extremity cellulitis Status: Acute Qualifiers: Laterality: left Qualified Code(s): L03.116 - Cellulitis of left lower limb Plan: FORTAZ 1GM IV TID, wound care, blood and wound cultures, continue to monitor (2) Infected stasis ulcer of left lower extremity Status: Acute Plan: FORTAZ 1GM IV TID, wound care, blood and wound cultures, continue to monitor (3) UTI (urinary tract infection) Status: Acute Qualifiers: Urinary tract infection type: acute cystitis Hematuria presence: with hematuria Qualified Code(s): N30.01 - Acute cystitis with hematuria Plan: FORTAZ 1GM IV TID, urine and blood cultures, mcclellan catheter, continue to monitor (4) Generalized weakness Status: Acute
[2018-01-11] MEDS: WELLBUTRIN XL 150 MG (DAILY) PO SCH (21:25)
[2018-01-11] MEDS: KLONOPIN TAB 1 MG PO SCH (21:26)
[2018-01-11] MEDS: TOPAMAX PO SCH (21:26)
[2018-01-11] MEDS: SEROquel TAB 100 MG PO SCH (21:29)
[2018-01-12] MEDS: NS 1000 ML 1,000 ML IV SCH ×3 (02:32→13:49)
[2018-01-12] MEDS: FLEXERIL TAB 10 MG PO SCH ×2 (05:30→13:07)
[2018-01-12] MEDS: FORTAZ or TAZICEF INJ 1 GM in NS 100 ML IV + SPIKE MINIBAG* 100 ML IV SCH ×2 (05:30→13:08)
[2018-01-12] MEDS: TORADOL 30 MG VIAL IVP PRN (05:30)
[2018-01-12 06:57] LABS: BASOPHILS % (AUTO) 0.4 % (0.2-1.0); HEMATOCRIT 24.1 % (36.0-47.0); HEMOGLOBIN 7.7 g/dL (12.0-16.0); LYMPHOCYTES # (AUTO) 1.4 X10^3/uL (1.3-2.9); LYMPHOCYTES % (AUTO) 33.3 % (21.0-51.0); MEAN CORPUSCULAR HEMOGLOBIN 21.9 pg (27.0-34.0); MEAN CORPUSCULAR HGB CONC 31.8 g/dL (33.0-35.0); MEAN PLATELET VOLUME 10.6 fL (7.4-11.0); MONOCYTES # (AUTO) 0.3 x10^3/uL (0.3-0.8); MONOCYTES % (AUTO) 7.7 % (0.0-13.0); NEUTROPHILS # (AUTO) 2.4 x10^3/uL (2.2-4.8); NEUTROPHILS % (AUTO) 58.6 % (42.0-75.0); PLATELET COUNT 151 X10^3/uL (150.0-450.0); RED CELL DISTRIBUTION WIDTH 19.9 % (11.6-16.5); WHITE BLOOD COUNT 4.1 X10^3/uL (3.6-10.0)
[2018-01-12 07:23] LABS: ANISOCYTOSIS SLIGHT; HYPOCHROMASIA 2+; MICROCYTOSIS 1+
[2018-01-12 07:25] LABS: ALANINE AMINOTRANSFERASE 58 Units/L (12-78); ALBUMIN 2.4 g/dL (3.4-5.0); ALKALINE PHOSPHATASE 111 Units/L (46-116); ASPARTATE AMINO TRANSFERASE 23 Units/L (15-37); BLOOD UREA NITROGEN 16 mg/dL (7-18); CALCIUM 7.1 mg/dL (8.5-10.1); CARBON DIOXIDE 17.7 mmol/L (21-32); COR CA(FOR HYPOALB) 8.4 mg/dL (8.5-10.1); CREATININE 0.81 mg/dL (0.55-1.02); SODIUM 143 mmol/L (136-145); TOTAL PROTEIN 5.3 g/dL (6.4-8.2); eGFR BLACK RACES > 60 (>60); eGFR NON BLACK RACES > 60 (>60)
[2018-01-12 07:29] LABS: CHLORIDE 115 mmol/L (98-107)
[2018-01-12 07:30] LABS: PLATELET MORPHOLOGY COMMENT NORMAL (NORMAL)
[2018-01-12] MEDS: NEURONTIN CAP 300 MG PO SCH (09:06)
[2018-01-12] MEDS: SYNTHROID 100 mcg TAB PO SCH (09:06)
[2018-01-12] MEDS: BUSPAR PO SCH (09:07)
[2018-01-12] MEDS: WELLBUTRIN XL 300 MG (DAILY) PO SCH (09:07)
[2018-01-12] MEDS: ELIQUIS PO SCH (09:08)
[2018-01-12] MEDS: FOLIC ACID TAB 1 MG PO SCH (09:08)
[2018-01-12] MEDS: PATIENT'S HOME MEDICATION (Dexlansoprazole [Dexilant] 60 MG) PO SCH (09:08)
[2018-01-12] MEDS: TOPAMAX TAB 100 MG PO SCH (09:08)
[2018-01-12] MEDS: NYSTATIN POWDER TOP SCH (09:09)
[2018-01-12] MEDS: DIFLUNISAL 500 MG PO SCH (09:09)
[2018-01-12] MEDS: TAPENTADOL HCL 150 MG PO SCH (09:10)
[2018-01-12] MEDS ORDERED: MORPHINE SULFATE INJ 4 MG ONE (13:03)
[2018-01-12] MEDS: MORPHINE SULFATE INJ 2 MG INJ IVP PRN (13:09)
[2018-01-12] MEDS: PHENERGAN TAB 25 MG PO PRN (15:00)
--- NOTE | 2018-01-12 15:26 | RAD ---
History: alf admission Study: Chest single view Findings: Single AP view of the chest is compared to previous study of 08/20/2017. Heart remains norm al in size. There appears to be a moderate-sized hiatal hernia better seen on the current study. Lung s and pleural spaces are clear. Right-sided ventricular shunt tubes are noted. Impression: Probable hiatal hernia and no evidence of acute disease. Reported By:
[2018-01-12 16:42] VITALS: BP 117/70
== END 2018-01-12 17:35 | DRG 603 ==
LOC: MED/SURG 14:26 → OBSVTOIN 01-09 09:00
PROVIDERS: ADMIT Internal Medicine; ATTEND Internal Medicine
DX: L03.116 Cellulitis of left lower limb (principal); R53.1 Weakness; N30.01 Acute cystitis with hematuria; F41.8 Other specified anxiety disorders; F32.89 Other specified depressive episodes; E03.8 Other specified hypothyroidism; I83.029 Varicose veins of left lower extremity with ulcer of unspecified site; B96.29 Other Escherichia coli [E. coli] as the cause of diseases classified elsewhere; L89.890 Pressure ulcer of other site, unstageable; B96.5 Pseudomonas (aeruginosa) (mallei) (pseudomallei) as the cause of diseases classified elsewhere; R26.89 Other abnormalities of gait and mobility
CPT/HCPCS: 36415; 71045; 80053; 81001; 83735; 84132; 85025; 87040; 87070; 87077; 87086; 87088; 87186; 87205; A4222; G8990; G8991; Q0169; G0378; J0713; J1885; J2270; J2543

== ENCOUNTER 2019-02-10 13:05 | Inpatient (IN) ==
[2019-02-10 13:17] VITALS: BMI 40.3
--- NOTE | 2019-02-10 13:39 | DR.HEADACH ---
HPI Time Seen Time Seen by Provider: 02/10/19 13:38 Primary Care Physician Primary Care Physician: DR. NAPOLES HPI Comment HPI Comment: PATIENT IS A 43 YEAR OLD FEMALE PRESENT TO THE EMERGENCY ROOM WITH HEADACHE, FEVER, AND INFECTED WOUND. PATIENT HAS RIGHT HEEL ULCER THAT IS INFECTED. PATIENT HAS A WOUND VAC AND IS UNDER TREATMENT FOR THE HEEL WOUND SHE DEVELPED FEVER AND THE WOUND HAS MORE NEUCROTIC TISSUES AND DRAINING MORE. SHE IS CURRENTLY ON ORAL ANTIBIOTIC WHICH HAS FAILED TREATMENT. SHE IS NAUSIATED BUT NOT VOMITTING. 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 Complaint/Symptoms Chief Complaint Doctors Comments: FEVER, MIGRAINE HEADACHE, AND INFECTED WOUND. Chief Complaint:: PT C/O HAVING A > TEMP. 102.0 , AND A MIGRAINE, AND PT HAS A BEDSORE TO HER RIGHT FOOT , AND PT HAD A WOUND VAC , AND PTS HOME HEALTH NURSE WENT TO SEE PT AND DONY BLANCAS NOTIFIED AND PT TO BE EVALUATED ,BR Pertinent History: Dizziness/Weakness, Fever and Headache Source History Provided: Patient Mode of Arrival Mode of Arrival: Stretcher Timing Onset of Chief Complaint: 02/10/19 PMH PMH Past Medical History: Yes Past Medical History: Anxiety, Depression, Migraines and Hypothyroidism Past Medical History Comment: SPINABIFIDA, Past Surgical History: Yes Surgical History: Cholecystectomy, Ortho Surgery and Other Family History History of Family Medical Conditions: Yes Family Medical History: Diabetes Mellitus, Cancer, [place] and Hypertension Social History Does patient currently use any type of tobacco product: No Have you used tobacco products in the last 12 months: No Type of Tobacco Use: None Does any household member use tobacco: No Alcohol Use: None Do you use any recreational Drugs:: No Lives With: Family Lives Where: Home infectious screening In the last 2 months have you had wt loss of >10#?: NO Have you had fever, night sweats or hemotysis?: No Have you traveled outside the country in the last 6 months?: No Isolation: Standard ROS Review of Systems Constitutional: See HPI, Chills, Fever, Weakness and Fatigue Eyes: No Symptoms Reported and See HPI; negative Eye Pain and Discharge ENTM: See HPI; negative Ear Pain, Nose Discharge, Nose Congestion and Throat Pain Respiratoy: See HPI, Non-Productive Cough, Short of Breath and Wheezing Cardiovascular: No Symptoms Reported, See HPI and Palpitations; negative Chest Pain Gastrointestinal/Abdominal: See HPI and Nausea; negative Abdominal Pain, Constipation, Diarrhea and Vomiting Genitourinary: No Symptoms Reported and See HPI Neurological: See HPI, Headache, Weakness and Dizziness Musculoskeletal: See HPI, Back Pain and Muscle Pain Integumentary: See HPI, Change in Color and Wound Hematologic/Lymphatic: See HPI, Anemia and Easy Bruising Endocrine: See HPI Psychiatric: See HPI and Depression All Other Systems: Reviewed and Negative PE Vital Signs Vitals: Temperature 98.5 F Pulse Rate [Left Brachial] 111 Pulse Rate [Radial] 104 Pulse Rate 112 Respiratory Rate 22 Blood Pressure [Left Arm] 115/78 Blood Pressure [Right Arm] 106/53 Blood Pressure 132/62 O2 Sat by Pulse Oximetry 99 General Limitations: No Limitations General Appearance: Alert and In No Apparent Distress Head Head Exam: Normal Inspection Eyes Eye exam: Normal Appearance, PERRL and EOMI Eyelids: Normal Inspection: Bilateral Pupils: Regular, Round: Bilateral Sclera/Conjunctival: Normal Inspection: Bilateral ENT ENT Exam: Normal Exam, Normal Oropharynx, Normal External Ear Exam and TM's Normal Bilaterally External Ear Exam: Normal External Inspection; negative Mastoid Tenderness, Pain with Movement and External Tenderness TM/Canal Exam: Bilateral: Normal Nose Exam: Normal Nose Exam; negative Sinus Tenderness and Septal Hematoma Mouth Exam: Normal Inspection; negative Trismus, Lip Swelling and Tongue Swelling Teeth Exam: Normal Inspection; negative Dental Tenderness # and Gingival Swelling Throat Exam: Normal Inspection; negative Tonsillar Erythema, Tonsillomegaly and Tonsillar Exudate Neck Neck Exam: Normal Inspection and Trachea Midline; negative Tenderness, Meningismus and Lymphadenopathy Chest Chest Inspection: Normal Inspection and Symmetric Chest Wall Rise; negative Tenderness Respiratory Respiratory Exam: Normal Lung Sounds Bilat Respiratory Exam: Bilateral: Crackles and Lower: Crackles Cardiovascular Cardiovascular Exam: Regular Rate, Normal Rhythm and Normal Heart Sounds; negative Systolic Murmur and Diastolic Murmur Abdominal Exam Abdominal Exam: Normal Inspection, Normal Bowel Sounds and Soft; negative Tenderness Extremities Extremities Exam: Normal Inspection and Other (INFECTED ULCER RIGHT HEEL WITH NECROTIC TISSUES) Back Back Exam: Normal Inspection and Paraspinal Tenderness Neurologic Neurological Exam: Alert and Oriented X3; negative Motor Sensory Deficit Psychiatric Psychiatric Exam: Normal Affect, Normal Mood and Depressed Skin Skin Exam: Other (INFECTED RIGHT FOOT ULCER) MDM Differential Diagnosis Differential Diagnosis: Considerations may include:: Migraine, Sinusitis and Other (UTI, SEPSIS, PNEUMONIA, INFECTED FOOT ULCER) COURSE Treatment Treatment: SEE ORDERS Education/Counseling Education/Counseling: Patient Educated On: Diagnosis ROR Labs Reviewed Laboratory Results Reviewed?: Yes Result Diagrams: 02/12/19 05:41 02/12/19 05:41 Laboratory: 02/10/19 16:04 Ankle - Right Gram Stain - Final 02/10/19 16:04 Ankle - Right Wound Culture - Final Methicillin Resis Staph Aureus 02/10/19 16:46 Urine,Catheterized Urine Culture - Final Escherichia Coli 02/10/19 14:35 Blood Blood Culture - Preliminary 02/10/19 14:33 Blood Blood Culture - Preliminary WBC 4.4 X10^3/uL (3.6-10.0) 02/12/19 05:41 RBC 3.37 X10^6/uL (3.5-5.4) L 02/12/19 05:41 Hgb 6.4 g/dL (12.0-16.0) L* 02/12/19 05:41 Hct 21.9 % (36.0-47.0) L 02/12/19 05:41 MCV 64.9 fL (80.0-100.0) L 02/12/19 05:41 MCH 19.0 pg (27.0-34.0) L 02/12/19 05:41 MCHC 29.2 g/dL (33.0-35.0) L 02/12/19 05:41 RDW 19.9 % (11.6-16.5) H 02/12/19 05:41 Plt Count 169 X10^3/uL (150.0-450.0) 02/12/19 05:41 Plt Count Comment Adequate (ADEQUATE) 02/12/19 05:41 MPV 9.8 fL (7.4-11.0) 02/12/19 05:41 Neut % (Auto) 58.5 % (42.0-75.0) 02/12/19 05:41 Lymph % (Auto) 31.8 % (21.0-51.0) 02/12/19 05:41 [place] % (Auto) 8.4 % (0.0-13.0) 02/12/19 05:41 Eos % (Auto) 0.1 % (0.9-2.9) L 02/12/19 05:41 Baso % (Auto) 1.2 % (0.2-1.0) H 02/12/19 05:41 Neut # (Auto) 2.6 x10^3/uL (2.2-4.8) 02/12/19 05:41 Lymph # (Auto) 1.4 X10^3/uL (1.3-2.9) 02/12/19 05:41 [place] # (Auto) 0.4 x10^3/uL (0.3-0.8) 02/12/19 05:41 Eos # (Auto) 0.0 x10^3/uL (0.0-0.2) 02/12/19 05:41 Baso # (Auto) 0.1 X10^3/uL (0.0-0.1) 02/12/19 05:41 Absolute Nucleated RBC 0.0 /100WBC 02/12/19 05:41 Plt Morphology Comment Normal (NORMAL) 02/12/19 05:41 RBC Morphology Abnormal (NORMAL) A 02/12/19 05:41 Hypochromasia 3+ A 02/12/19 05:41 Anisocytosis Slight A 02/12/19 05:41 Microcytosis 2+ A 02/12/19 05:41 Tear Drop Cells Present 02/11/19 05:19 Ovalocytes Present 02/12/19 05:41 Sodium 143 mmol/L (136-145) 02/12/19 05:41 Corrected Sodium TNP 02/12/19 05:41 Potassium 3.9 mmol/L (3.5-5.1) 02/12/19 05:41 Chloride 113 mmol/L (98-107) H 02/12/19 05:41 Carbon Dioxide 19.1 mmol/L (21-32) L 02/12/19 05:41 BUN 8 mg/dL (7-18) 02/12/19 05:41 Creatinine 0.88 mg/dL (0.55-1.02) 02/12/19 05:41 Est GFR (MDRD) Af Amer > 60 (>60) 02/12/19 05:41 Est GFR (MDRD) Non-Af > 60 (>60) 02/12/19 05:41 Glucose 94 mg/dL (65-99) 02/12/19 05:41 Calcium 8.2 mg/dL (8.5-10.1) L 02/12/19 05:41 Corrected Calcium 9.3 mg/dL (8.5-10.1) 02/12/19 05:41 Total Bilirubin 0.30 mg/dL (0.2-1.0) 02/12/19 05:41 AST 24 Units/L (15-37) 02/12/19 05:41 ALT 55 Units/L (12-78) 02/12/19 05:41 Alkaline Phosphatase 146 Units/L (46-116) H 02/12/19 05:41 C-Reactive Protein 13.70 mg/L (0-3.0) H 02/10/19 14:33 Total Protein 5.7 g/dL (6.4-8.2) L 02/12/19 05:41 Albumin 2.6 g/dL (3.4-5.0) L 02/12/19 05:41 Globulin 3.1 g/dL (2.5-4.5) 02/12/19 05:41 Albumin/Globulin Ratio 0.8 Ratio (1.1-2.1) L 02/12/19 05:41 Specimen Type Catherized urine 02/10/19 23:15 Urine Color Yellow (YELLOW) 02/10/19 23:15 Urine Appearance Mucoid (CLEAR) 02/10/19 23:15 Urine pH 5.0 (5.0 - 8.0) 02/10/19 23:15 Ur Specific [place] 1.015 (1.000-1.030) 02/10/19 23:15 Urine Protein 1+ (NEGATIVE) 02/10/19 23:15 Urine Glucose (UA) Negative (NEGATIVE) 02/10/19 23:15 Urine Ketones Negative (NEGATIVE) 02/10/19 23:15 Urine Occult Blood 2+ (NEGATIVE) 02/10/19 23:15 Urine Nitrite Positive (NEGATIVE) 02/10/19 23:15 Urine Bilirubin Negative (NEGATIVE) 02/10/19 23:15 Urine Urobilinogen Normal (NORMAL) 02/10/19 23:15 Ur Leukocyte Esterase 3+ (NEGATIVE) 02/10/19 23:15 Urine RBC 10-20 /HPF (NONE SEEN) 02/10/19 23:15 Urine WBC Tntc /HPF (NONE SEEN) 06/21/19 23:15 Ur Squamous Epith Cells Rare /HPF (NEGATIVE) 02/10/19 23:15 Amorphous Sediment 1+ /HPF (NEGATIVE) 02/10/19 23:15 Urine Bacteria 3+ /HPF (NEGATIVE) 02/10/19 23:15 Urine Mucus Numerous /HPF (NEGATIVE) 02/10/19 23:15 Ur Culture Indicated? Yes/culture set up 02/10/19 23:15 Vancomycin Trough 14.4 ug/mL (15-20) L 02/11/19 23:48 Blood Type O NEGATIVE 02/11/19 06:51 Antibody Screen Positive 02/11/19 06:51 Crossmatch See Detail 02/11/19 06:51 XRAY XRAY Interpreted by: Radiologist XRAY Findings: REPORT ON RECORD NOTED AND DISCUSSED WITH PATIENT Opioid Opioid Risk Tool Age (Rob box if 16-45): Yes Total: 1 Total Score Risk Category: Low Risk Copyright: Tin STEWART predicting aberrant behaviors Management Prescription drug monitoring program results: PDMP was not reviewed Diagnosis Discharge Problem: Failure of outpatient treatment Foot ulcer Qualifiers: Laterality: right Non-pressure ulcer stage: with necrosis of muscle Qualified Code(s): L97.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
[2019-02-10] MEDS ORDERED: DEMEROL INJ IM ONE (14:21)
[2019-02-10] MEDS ORDERED: ZOFRAN INJ 4 MG VIAL IM ONE (14:21)
[2019-02-10 14:47] LABS: BASOPHILS % (AUTO) 0.5 % (0.2-1.0); HEMATOCRIT 24.1 % (36.0-47.0); HEMOGLOBIN 7.2 g/dL (12.0-16.0); LYMPHOCYTES # (AUTO) 1.1 X10^3/uL (1.3-2.9); LYMPHOCYTES % (AUTO) 18.3 % (21.0-51.0); MEAN CORPUSCULAR HEMOGLOBIN 18.9 pg (27.0-34.0); MEAN CORPUSCULAR HGB CONC 29.8 g/dL (33.0-35.0); MEAN CORPUSCULAR VOLUME 63.3 fL (80.0-100.0); MONOCYTES # (AUTO) 0.4 x10^3/uL (0.3-0.8); MONOCYTES % (AUTO) 5.7 % (0.0-13.0); NEUTROPHILS # (AUTO) 4.7 x10^3/uL (2.2-4.8); NEUTROPHILS % (AUTO) 75.5 % (42.0-75.0); PLATELET COUNT 192 X10^3/uL (150.0-450.0); RED BLOOD COUNT 3.82 X10^6/uL (3.5-5.4); RED CELL DISTRIBUTION WIDTH 19.8 % (11.6-16.5); WHITE BLOOD COUNT 6.2 X10^3/uL (3.6-10.0)
[2019-02-10 15:15] LABS: ALANINE AMINOTRANSFERASE 75 Units/L (12-78); ALBUMIN 2.8 g/dL (3.4-5.0); ALKALINE PHOSPHATASE 165 Units/L (46-116); ASPARTATE AMINO TRANSFERASE 63 Units/L (15-37); BLOOD UREA NITROGEN 12 mg/dL (7-18); CALCIUM 8.3 mg/dL (8.5-10.1); CARBON DIOXIDE 21.3 mmol/L (21-32); CHLORIDE 112 mmol/L (98-107); COR CA(FOR HYPOALB) 9.3 mg/dL (8.5-10.1); CREATININE 0.78 mg/dL (0.55-1.02); HYPOCHROMASIA 3+; MICROCYTOSIS 2+; PLATELET MORPHOLOGY COMMENT NORMAL (NORMAL); SODIUM 144 mmol/L (136-145); TOTAL PROTEIN 6.1 g/dL (6.4-8.2); eGFR NON BLACK RACES > 60 (>60)
[2019-02-10] MEDS ORDERED: ZOFRAN INJ 4 MG VIAL ONE (16:01)
[2019-02-10] MEDS ORDERED: DEMEROL INJ ONE (16:02)
[2019-02-10 17:21] LABS: BILIRUBIN,URINE NEGATIVE (NEGATIVE); BLOOD/HEMOGLOBIN,URINE 2+ (NEGATIVE); GLUCOSE, URINE NEGATIVE (NEGATIVE); KETONES,URINE NEGATIVE (NEGATIVE); LEUKOCYTE ESTERASE ,URINE 3+ (NEGATIVE); NITRITES,URINE POSITIVE (NEGATIVE); PROTEIN,URINE 1+ (NEGATIVE); UROBILINOGEN,URINE NORMAL (NORMAL)
[2019-02-10] MEDS ORDERED: VANCOMYCIN HCL 1 GM VIAL 1 G in D5W 250 ML IV 250 ML IV ONE (18:05)
--- NOTE | 2019-02-10 18:05 | RAD ---
Exam: Right foot two views History: 43-year-old female with nonhealing ulcer involving the right heel. Patient is paraplegic. Comparison: Previous right foot radiographs from 05/02/2014 Findings: Flexion contractures of the toes are identified. Degenerative changes are present in the interphalangeal joints as well as multiple metatarsophalangeal joints as well. Spurring is present along the posterior and plantar aspect of the calcaneus. However no acute bony abnormality is seen on this exam. No definite radiographic evidence of osteomyelitis is seen on this study. Impression: 1. Degenerative changes are present in the right foot as described above. 2. No acute bony abnormality or radiographic evidence of osteomyelitis is seen on this exam. Reported By:
[2019-02-10] MEDS ORDERED: ZOFRAN TAB 4 MG PO PRN (18:19)
[2019-02-10 18:22] LABS: APPEARANCE,URINE CLOUDY (CLEAR); COLOR,URINE YELLOW (YELLOW)
[2019-02-10 18:23] LABS: BACTERIA,URINE 3+ /HPF (NEGATIVE); SQUAMOUS EPITHELIAL CELL,UR MODERATE /HPF (NEGATIVE)
[2019-02-10 18:24] LABS: AMORPHOUS SEDIMENT,UR 2+ /HPF (NEGATIVE)
[2019-02-10] MEDS ORDERED: VANCOMYCIN HCL 1 GM VIAL ONE (18:30)
[2019-02-10] MEDS ORDERED: NS 250 ML IV 0 ML ONE (18:31)
[2019-02-10] MEDS: NS 1000 ML 1,000 ML IV SCH (18:40)
[2019-02-10] MEDS ORDERED: PHARMACY CONSULT - VANCOMYCIN XX SCH (19:00)
[2019-02-10] MEDS: SEROquel TAB 100 MG PO SCH (22:22)
[2019-02-10] MEDS: NEURONTIN CAP 300 MG PO SCH (22:22)
[2019-02-10] MEDS: TOPAMAX PO SCH (22:23)
[2019-02-10] MEDS: ELIQUIS PO SCH (22:24)
[2019-02-10] MEDS: ZOSYN VIAL 3.375 GRAMS 3.375 G in NS 100 ML IV + SPIKE MINIBAG* 100 ML IV SCH (22:25)
[2019-02-10] MEDS: ZANAFLEX PO PRN (22:25)
[2019-02-10] MEDS: PHENERGAN TAB 25 MG PO PRN (22:25)
[2019-02-10] MEDS: TAPENTADOL 50 MG PO SCH (22:27)
[2019-02-10] MEDS: TAPENTADOL 100 MG PO SCH (22:27)
[2019-02-10 23:59] LABS: BILIRUBIN,URINE NEGATIVE (NEGATIVE); BLOOD/HEMOGLOBIN,URINE 2+ (NEGATIVE); GLUCOSE, URINE NEGATIVE (NEGATIVE); KETONES,URINE NEGATIVE (NEGATIVE); LEUKOCYTE ESTERASE ,URINE 3+ (NEGATIVE); NITRITES,URINE POSITIVE (NEGATIVE); PROTEIN,URINE 1+ (NEGATIVE); UROBILINOGEN,URINE NORMAL (NORMAL)
[2019-02-11 00:07] LABS: APPEARANCE,URINE MUCOID (CLEAR); COLOR,URINE YELLOW (YELLOW)
[2019-02-11 00:08] LABS: AMORPHOUS SEDIMENT,UR 1+ /HPF (NEGATIVE); BACTERIA,URINE 3+ /HPF (NEGATIVE); MUCUS,URINE NUMEROUS /HPF (NEGATIVE); SQUAMOUS EPITHELIAL CELL,UR RARE /HPF (NEGATIVE)
[2019-02-11] MEDS: TAPENTADOL 100 MG PO SCH ×3 (04:00→20:55)
[2019-02-11] MEDS: TAPENTADOL 50 MG PO SCH ×4 (04:00→20:55)
[2019-02-11] MEDS: MOTRIN TAB 600 MG PO PRN ×2 (04:19→20:30)
[2019-02-11] MEDS: NS 1000 ML 1,000 ML IV SCH ×3 (04:19→21:00)
[2019-02-11 05:30] LABS: BASOPHILS % (AUTO) 0.5 % (0.2-1.0); EOSINOPHILS % (AUTO) 0.1 % (0.9-2.9); LYMPHOCYTES % (AUTO) 25.7 % (21.0-51.0); MEAN CORPUSCULAR HGB CONC 29.7 g/dL (33.0-35.0); MEAN CORPUSCULAR VOLUME 63.7 fL (80.0-100.0); MEAN PLATELET VOLUME 9.6 fL (7.4-11.0); MONOCYTES # (AUTO) 0.2 x10^3/uL (0.3-0.8); MONOCYTES % (AUTO) 5.8 % (0.0-13.0); NEUTROPHILS # (AUTO) 2.7 x10^3/uL (2.2-4.8); NEUTROPHILS % (AUTO) 67.9 % (42.0-75.0); PLATELET COUNT 173 X10^3/uL (150.0-450.0); RED BLOOD COUNT 3.45 X10^6/uL (3.5-5.4); RED CELL DISTRIBUTION WIDTH 19.6 % (11.6-16.5); WHITE BLOOD COUNT 3.9 X10^3/uL (3.6-10.0)
[2019-02-11] MEDS: ZOSYN VIAL 3.375 GRAMS 3.375 G in NS 100 ML IV + SPIKE MINIBAG* 100 ML IV SCH ×3 (05:37→23:00)
[2019-02-11 05:42] LABS: ALANINE AMINOTRANSFERASE 66 Units/L (12-78); ALBUMIN 2.6 g/dL (3.4-5.0); ALKALINE PHOSPHATASE 154 Units/L (46-116); ASPARTATE AMINO TRANSFERASE 35 Units/L (15-37); BLOOD UREA NITROGEN 6 mg/dL (7-18); CARBON DIOXIDE 22.3 mmol/L (21-32); COR CA(FOR HYPOALB) 9.1 mg/dL (8.5-10.1); COR NA(FOR HYPERGLY) 149 mmol/L (136-145); CREATININE 0.84 mg/dL (0.55-1.02); SODIUM 148 mmol/L (136-145); TOTAL PROTEIN 5.6 g/dL (6.4-8.2); eGFR NON BLACK RACES > 60 (>60)
[2019-02-11 05:56] LABS: CHLORIDE 118 mmol/L (98-107)
[2019-02-11 05:58] LABS: HEMOGLOBIN 6.5 g/dL (12.0-16.0)
[2019-02-11 05:59] LABS: HYPOCHROMASIA 3+; MICROCYTOSIS 2+; OVALOCYTES PRESENT; PLATELET MORPHOLOGY COMMENT NORMAL (NORMAL); TEAR DROP CELLS PRESENT
[2019-02-11] MEDS ORDERED: PATIENT'S HOME MEDICATION (Dexlansoprazole [Dexilant] 60 MG) PO SCH (09:00)
[2019-02-11] MEDS ORDERED: DIFLUNISAL 500 MG PO SCH (09:00)
[2019-02-11] MEDS ORDERED: FOLIC ACID TAB 1 MG PO SCH (09:00)
[2019-02-11] MEDS ORDERED: VANCOMYCIN HCL 1 GM VIAL 1 G in D5W 250 ML IV 250 ML IV SCH (09:00)
[2019-02-11] MEDS: PEPCID 20 MG IV PREMIX* 20 MG/50 ML BAG IV SCH ×3 (09:26→20:54)
[2019-02-11] MEDS: VISTARIL PO SCH (09:27)
[2019-02-11] MEDS: NEURONTIN CAP 300 MG PO SCH ×2 (09:27→20:51)
[2019-02-11] MEDS: TOPAMAX TAB 100 MG PO SCH (09:27)
[2019-02-11] MEDS: PROTONIX TAB 40 MG PO SCH (09:27)
[2019-02-11] MEDS: VSL#3 PO SCH (09:27)
[2019-02-11] MEDS: ELIQUIS PO SCH ×2 (09:27→20:51)
[2019-02-11] MEDS: SYNTHROID 125 mcg TAB PO SCH (09:28)
[2019-02-11] MEDS: FOLIC ACID TAB 1 MG PO SCH (09:28)
[2019-02-11] MEDS: DIFLUNISAL 500 MG PO SCH (09:37)
[2019-02-11] MEDS: VANCOMYCIN HCL 500 MG VIAL 500 MG, VANCOMYCIN HCL 1 GM VIAL 1 G in D5W 250 ML IV 250 ML IV SCH (09:39)
[2019-02-11] MEDS: SEROquel TAB 100 MG PO SCH (20:52)
[2019-02-11] MEDS: TOPAMAX PO SCH (20:53)
[2019-02-11] MEDS: ZANAFLEX PO PRN (20:53)
[2019-02-11] MEDS: XANAX PO PRN (23:00)
[2019-02-12 00:19] LABS: CREATININE 0.77 mg/dL (0.55-1.02); VANCOMYCIN,TROUGH 14.4 ug/mL (15-20)
[2019-02-12] MEDS: VANCOMYCIN HCL 500 MG VIAL 500 MG, VANCOMYCIN HCL 1 GM VIAL 1 G in D5W 250 ML IV 250 ML IV SCH ×3 (00:24→22:00)
[2019-02-12] MEDS: NS 1000 ML 1,000 ML IV SCH ×5 (03:34→21:24)
[2019-02-12] MEDS: ZOSYN VIAL 3.375 GRAMS 3.375 G in NS 100 ML IV + SPIKE MINIBAG* 100 ML IV SCH ×3 (05:53→21:21)
[2019-02-12 06:08] LABS: BASOPHILS # (AUTO) 0.1 X10^3/uL (0.0-0.1); BASOPHILS % (AUTO) 1.2 % (0.2-1.0); EOSINOPHILS % (AUTO) 0.1 % (0.9-2.9); HEMATOCRIT 21.9 % (36.0-47.0); LYMPHOCYTES # (AUTO) 1.4 X10^3/uL (1.3-2.9); LYMPHOCYTES % (AUTO) 31.8 % (21.0-51.0); MEAN CORPUSCULAR HGB CONC 29.2 g/dL (33.0-35.0); MEAN CORPUSCULAR VOLUME 64.9 fL (80.0-100.0); MEAN PLATELET VOLUME 9.8 fL (7.4-11.0); MONOCYTES # (AUTO) 0.4 x10^3/uL (0.3-0.8); MONOCYTES % (AUTO) 8.4 % (0.0-13.0); NEUTROPHILS # (AUTO) 2.6 x10^3/uL (2.2-4.8); NEUTROPHILS % (AUTO) 58.5 % (42.0-75.0); PLATELET COUNT 169 X10^3/uL (150.0-450.0); RED BLOOD COUNT 3.37 X10^6/uL (3.5-5.4); RED CELL DISTRIBUTION WIDTH 19.9 % (11.6-16.5); WHITE BLOOD COUNT 4.4 X10^3/uL (3.6-10.0)
[2019-02-12 06:15] LABS: HEMOGLOBIN 6.4 g/dL (12.0-16.0)
[2019-02-12 06:24] LABS: PLATELET MORPHOLOGY COMMENT NORMAL (NORMAL)
[2019-02-12 06:26] LABS: ALANINE AMINOTRANSFERASE 55 Units/L (12-78); ALBUMIN 2.6 g/dL (3.4-5.0); ALKALINE PHOSPHATASE 146 Units/L (46-116); ASPARTATE AMINO TRANSFERASE 24 Units/L (15-37); BLOOD UREA NITROGEN 8 mg/dL (7-18); CALCIUM 8.2 mg/dL (8.5-10.1); CARBON DIOXIDE 19.1 mmol/L (21-32); CHLORIDE 113 mmol/L (98-107); COR CA(FOR HYPOALB) 9.3 mg/dL (8.5-10.1); CREATININE 0.88 mg/dL (0.55-1.02); SODIUM 143 mmol/L (136-145); TOTAL PROTEIN 5.7 g/dL (6.4-8.2); eGFR NON BLACK RACES > 60 (>60)
[2019-02-12 06:27] LABS: ANISOCYTOSIS SLIGHT; HYPOCHROMASIA 3+; MICROCYTOSIS 2+
[2019-02-12 06:28] LABS: OVALOCYTES PRESENT
[2019-02-12] MEDS: PEPCID 20 MG IV PREMIX* 20 MG/50 ML BAG IV SCH ×2 (09:36→21:23)
[2019-02-12] MEDS: VSL#3 PO SCH (09:38)
[2019-02-12] MEDS: VISTARIL PO SCH (09:38)
[2019-02-12] MEDS: NEURONTIN CAP 300 MG PO SCH ×2 (09:38→21:20)
[2019-02-12] MEDS: SYNTHROID 125 mcg TAB PO SCH (09:38)
[2019-02-12] MEDS: TOPAMAX TAB 100 MG PO SCH (09:39)
[2019-02-12] MEDS: ELIQUIS PO SCH ×2 (09:39→21:20)
[2019-02-12] MEDS: FOLIC ACID TAB 1 MG PO SCH (09:39)
[2019-02-12] MEDS: TAPENTADOL 100 MG PO SCH ×2 (09:40→21:19)
[2019-02-12] MEDS: PROTONIX TAB 40 MG PO SCH (09:40)
[2019-02-12] MEDS: TAPENTADOL 50 MG PO SCH ×2 (09:40→22:00)
[2019-02-12] MEDS: DIFLUNISAL 500 MG PO SCH (09:40)
[2019-02-12] MEDS: PHENERGAN TAB 25 MG PO PRN (17:35)
[2019-02-12] MEDS: ZANAFLEX PO PRN (17:35)
[2019-02-12] MEDS ORDERED: PHARMACY COMMENT IV NR (20:30)
[2019-02-12] MEDS: SEROquel TAB 100 MG PO SCH (21:21)
[2019-02-12] MEDS: TOPAMAX PO SCH (21:22)
[2019-02-13] MEDS ORDERED: NS 500 ML IV 500 ML ONE (02:25)
[2019-02-13] MEDS: NS 1000 ML 1,000 ML IV SCH ×2 (03:24→21:57)
[2019-02-13] MEDS: ZOSYN VIAL 3.375 GRAMS 3.375 G in NS 100 ML IV + SPIKE MINIBAG* 100 ML IV SCH ×3 (05:49→21:51)
[2019-02-13 07:17] LABS: BASOPHILS % (AUTO) 0.4 % (0.2-1.0); EOSINOPHILS % (AUTO) 0.1 % (0.9-2.9); HEMATOCRIT 26.4 % (36.0-47.0); LYMPHOCYTES % (AUTO) 19.2 % (21.0-51.0); MEAN CORPUSCULAR HEMOGLOBIN 20.5 pg (27.0-34.0); MEAN CORPUSCULAR HGB CONC 30.4 g/dL (33.0-35.0); MEAN CORPUSCULAR VOLUME 67.3 fL (80.0-100.0); MONOCYTES # (AUTO) 0.4 x10^3/uL (0.3-0.8); MONOCYTES % (AUTO) 7.1 % (0.0-13.0); NEUTROPHILS # (AUTO) 3.9 x10^3/uL (2.2-4.8); NEUTROPHILS % (AUTO) 73.2 % (42.0-75.0); PLATELET COUNT 161 X10^3/uL (150.0-450.0); RED BLOOD COUNT 3.92 X10^6/uL (3.5-5.4); RED CELL DISTRIBUTION WIDTH 22.3 % (11.6-16.5); WHITE BLOOD COUNT 5.4 X10^3/uL (3.6-10.0)
[2019-02-13 07:30] LABS: ALANINE AMINOTRANSFERASE 50 Units/L (12-78); ALBUMIN 2.5 g/dL (3.4-5.0); ALKALINE PHOSPHATASE 153 Units/L (46-116); ASPARTATE AMINO TRANSFERASE 17 Units/L (15-37); BLOOD UREA NITROGEN 6 mg/dL (7-18); CALCIUM 8.2 mg/dL (8.5-10.1); CARBON DIOXIDE 19.1 mmol/L (21-32); COR CA(FOR HYPOALB) 9.4 mg/dL (8.5-10.1); CREATININE 0.94 mg/dL (0.55-1.02); SODIUM 145 mmol/L (136-145); TOTAL PROTEIN 5.7 g/dL (6.4-8.2); eGFR NON BLACK RACES > 60 (>60)
[2019-02-13 07:34] LABS: CHLORIDE 115 mmol/L (98-107)
[2019-02-13 07:45] LABS: ANISOCYTOSIS 2+; HYPOCHROMASIA 2+; MICROCYTOSIS 1+; PLATELET MORPHOLOGY COMMENT NORMAL (NORMAL)
[2019-02-13] MEDS: DIFLUNISAL 500 MG PO SCH (10:48)
[2019-02-13] MEDS: TOPAMAX TAB 100 MG PO SCH (10:48)
[2019-02-13] MEDS: VISTARIL PO SCH (10:49)
[2019-02-13] MEDS: VSL#3 PO SCH ×2 (10:49→21:55)
[2019-02-13] MEDS: TAPENTADOL 100 MG PO SCH ×2 (10:49→21:57)
[2019-02-13] MEDS: ELIQUIS PO SCH ×2 (10:49→21:55)
[2019-02-13] MEDS: NEURONTIN CAP 300 MG PO SCH ×2 (10:49→21:54)
[2019-02-13] MEDS: TAPENTADOL 50 MG PO SCH ×2 (10:49→21:57)
[2019-02-13] MEDS: SYNTHROID 125 mcg TAB PO SCH (10:49)
[2019-02-13] MEDS: PROTONIX TAB 40 MG PO SCH (10:50)
[2019-02-13] MEDS: FOLIC ACID TAB 1 MG PO SCH (10:50)
[2019-02-13] MEDS: PEPCID 20 MG IV PREMIX* 20 MG/50 ML BAG IV SCH ×2 (10:51→21:51)
[2019-02-13] MEDS: VANCOMYCIN HCL 500 MG VIAL 500 MG, VANCOMYCIN HCL 1 GM VIAL 1 G in D5W 250 ML IV 250 ML IV SCH (10:53)
--- NOTE | 2019-02-13 11:53 | DR.H&P ---
H&P - History & Physical for Day of: H&P Date: 02/10/19 - Chief Complaint Chief Complaint: RIGHT FOOT ULCER - History of Present Illness History of Present Illness: IS A 43 YEAR OLD PATIENT OF OURS. SHE PRESENTED TO THE ER WITH COMPLAINTS OF FEVER, HEADACHE, AND AN INFECTED WOUND TO THE RIGHT HEEL. PATIENT CURRENTLY USES A WOUND VAC AT HOME OVER WOUND TO THE RIGHT HEEL. SHE REPORTS THAT HER HOME HEALTH NURSE ADVISED PATIENT TO HAVE WOUND CHECKED DUE TO NECROTIC TISSUE AND DRAINING. SHE REPORTS THAT HER FEVER HAS BEEN GREATER THAN 102.0. SHE HAS BEEN TAKING ORAL CIPRO AT HOME WITHOUT IMPROVEMENT IN SYMPTOM. PATIENT HAS A HISTORY OF SPINABIFIDA AND HAS LOWER EXTREMITY PARALYSIS. ON ARRIVAL, VITALS WERE 100.6, 80,18, 99%, 131/61. LABS WERE OBTAINED. ABNORMAL LAB VALUES INCLUDE THE FOLLOWING: HGB 7.2, HCT 24.1, CHLORIDE 112, GLUCOSE 106, CALCIUM 8.3, AST 63, ALK PHOS 165, CRP 13.70, TOTAL PROTEIN 6.1, ALBUMIN 2.8. A URINALYSIS WAS OBTAINED VIA SELF CATHETERIZATION. STERILE TECHNIQUE WAS USED. URINALYSIS REVEALED: WBC TNTC, RBC 5-10, BACTERIA 3+, LEUKOCYTES 3+, NITRITES POSITIVE. BLOOD, WOUND, AND URINE CULTURES WERE OBTAINED. A RIGHT FOOT XRAY WAS OBTAINED AND REVEALED: Degenerative changes are present in the right foot as described above. No acute bony abnormality or radiographic evidence of osteomyelitis is seen on this exam. A WET TO DRY DRESSING WAS APPLIED IN THE ER. SHE WAS ADMITTED FOR FURTHER EVALUATION AND TREATMENT OF INFECTED RIGHT FOOT ULCER, FAILED OUTPATIENT TREATMENT AND A URINARY TRACT INFECTION. SHE WAS STARTED ON NORMAL SALINE AT 125ML/HR, VANCOMYCIN 1G IV Q12H, AND ZOSYN 3.375G IV TID. WE WILL CONSULT FOR POSSIBLE DEBRIDEMENT. OTHERWISE, WE PLAN TO FOLLOW UP WITH AM LABS AND CONTINUE TO MONITOR. - Past Medical History Past Medical History: Depression, Anxiety, Hypothyroidism, Migraines Additional Medical History: lower extremity paralysis, bipolar - Past Surgical History Surgical History: Cholecystectomy, Ortho Surgery, Other - Family History Family Medical History: Diabetes Mellitus, Cancer, [place], Hypertension - Social History Does patient currently use any type of tobacco product: No Have you used tobacco products in the last 12 months: No Type of Tobacco Use: None Does any household member use tobacco: No Alcohol Use: None Drug Use: None - Medications Home Medications: Latex, Natural Rubber Allergy (Verified 01/07/18 17:19) CONTINUE taking the following medications bupropion HCl 150 mg PO HS 02/10/19 [History] bupropion HCl 300 mg PO DAILY 02/10/19 [History] diflunisal 500 mg PO DAILY 02/10/19 [History] folic acid 1 mg PO DAILY 02/10/19 [History] gabapentin 300 mg PO BID 02/10/19 [History] hydroxyzine pamoate 25 - 50 mg PO DAILY PRN 02/10/19 [History] levothyroxine 125 mcg PO DAILY 02/10/19 [History] promethazine 25 mg PO Q6H PRN 02/10/19 [History] tapentadol [Nucynta ER] 100 mg PO BID 02/10/19 [History] tapentadol [Nucynta] 50 mg PO BID 02/10/19 [History] tizanidine 4 mg PO TID PRN 02/10/19 [History] dexlansoprazole [Dexilant] 30 mg PO DAILY 02/11/19 [History] - Review of Systems Constitutional: Fever Eyes: No Symptoms Reported ENT: No Symptoms Reported Respiratory: No Symptoms Reported Cardiovascular: No Symptoms Reported Gastrointestinal: No Symptoms Reported Genitourinary: No Symptoms Reported Musculoskeletal: No Symptoms Reported Skin: See HPI, Wound (RIGHT HEEL ) Neurological: Weakness - Physical Exam Vital Signs: Temperature 98.0 F Pulse Rate [Left Brachial] 113 Pulse Rate [Radial] 104 Pulse Rate 112 Respiratory Rate 20 Blood Pressure [Left Arm] 111/59 Blood Pressure [Right Arm] 106/53 Blood Pressure 132/62 O2 Sat by Pulse Oximetry 99 Oriented: Normal Eyes: Normal Ear: Normal Nose: Normal Throat: Normal Respiratory: Diminished Throughout Cardiovascular: Normal. negative: S3, S4, Murmur : Normal Auscultation: Bowel Sounds: Normal Palpation: Normal Tenderness: Normal Skin: Tender, Wound (RIGHT HEEL PRESSURE ULCER WITH NECROTIC TISSUE AND DRAINAGE ) Musculoskeletal: Normal, Motor Deficit (LOWER EXTREMITY PARALYSIS ), Sensory Deficit Psychiatric: Normal Mood Description: Calm Affect: Normal Speech Pattern: Clear - Assessment/Plan (1) Infected stasis ulcer of right lower extremity Status: Acute Plan: WOUND CARE, SURGICAL CONSULT, WOUND CULTURES, IV ANTIBIOITCS, CONTINUE TO MONITOR (2) UTI (urinary tract infection) Qualifiers: Urinary tract infection type: acute cystitis Hematuria presence: with hematuria Qualified Code(s): N30.01 - Acute cystitis with hematuria Status: Acute Plan: IV ANTIBIOTICS, CONTINUE TO MONITOR. - Allergies Allergies/Adverse Reactions: Allergies Allergy/AdvReac Type Severity Reaction Status Date / Time Latex, Natural Rubber Allergy Verified 01/07/18 17:19
[2019-02-13] MEDS ORDERED: BACITRACIN VIAL ONE (13:07)
[2019-02-13] MEDS ORDERED: XYLOCAINE 1 % (PLAIN) ONE (13:30)
--- NOTE | 2019-02-13 13:56 | OR.GENERIC ---
Post-Op Note Generic - Post-Op Note Operative Report: excisional debridement Rt heel decubitus ulcer ( stage 111 ) 5x5cm , packed with iodoform and dressed . C&S was obtained . same ATB then will apply wound Vac when the wound is clean .
[2019-02-13] MEDS ORDERED: VERSED ONE (15:41)
--- NOTE | 2019-02-13 17:21 | PCM.PROG ---
Progress Note - Progress Note for Day of Date of Exam: 02/11/19 - Subjective Subjective: WAS ADMITTED FOR AN INFECTED RIGHT FOOT ULCER AND A URINARY TRACT INFECTION. TODAY, SHE IS ALERT AND ORIENTED, LYING IN BED ON MORNING ROUNDS. WOUND TO RIGHT FOOT CONTINUES WITH SEROSANGUINEOUS DRAINAGE TODAY. THERE IS NECROTIC TISSUE AND YELLOW SLOUGH NOTED. SHE HAS WET TO DRY DRESSINGS ORDERED. SHE DENIES PAIN TODAY. NICOLAS CATHETER IS NOTED WITH CLEAR URINE. HER VITALS THIS MORNING ARE: 99.3-105-20-96%-124/60. LABS WERE OBTAINED. ABNORMAL LAB VALUES INCLUDE THE FOLLOWING: RBC 3.45, HGB 6.5, HCT 22.0, SODIUM 148, CHLORIDGLE 118, BUN 6, GLUCOSE 124, CALCIUM 8.0, ALK PHOS 154, TOTAL PROTEIN 5.6, ALBUMIN 2.6. WOUND, BLOOD, AND URINE CULTURES ARE PENDING. SHE IS CURRENTLY RECEIVING IV VANCOMYCIN AND IV ZOSYN. TODAY, WE WILL TYPE AND SCREEN AND CROSSMATCH TWO UNITS OF PACKED RED BLOOD CELLS. WHEN BLOOD IS AVAILABLE, WE WILL TRANSFUSE. WE WILL START PEPCID AND PROTONIX IV. WE WILL ALSO CONSULT FOR DEBRIDEMENT OF WOUND. OTHERWISE, WE PLAN TO FOLLOW UP WITH AM LABS AND CONTINUE TO MONITOR. - Past Medical Family Social History Past Med/Fam/Surg Hx: No changes since H&P Allergies: Allergies Latex, Natural Rubber Allergy (Verified 01/07/18 17:19) - Review of Systems ROS: No change since H&P - Vital Signs and I&O's Vital Signs: Temperature 99.2 F Pulse Rate [Left Brachial] 104 Pulse Rate [Radial] 104 Pulse Rate 112 Respiratory Rate 18 Blood Pressure [Left Arm] 124/67 Blood Pressure [Right Arm] 106/53 Blood Pressure 132/62 O2 Sat by Pulse Oximetry 100 Intake and Output: Intake & Output 02/11/19 02/12/19 02/13/19 02/14/19 11:59 11:59 11:59 11:59 Intake Total 2130 / 2130 4020 / 4020 4660 / 4660 390 / 390 Output Total 2650 / 2650 1150 / 1150 2100 / 2100 1950 / 1950 Balance -520 / -520 2870 / 2870 2560 / 2560 -1560 / -1560 - Physical Exam Oriented: Normal Eyes: Normal Ear: Normal Nose: Normal Throat: Normal Respiratory: Generalized, Diminished Cardiovascular: Tachycardia. negative: S3, S4, Murmur : Normal Auscultation: Bowel Sounds: Normal Palpation: Normal Tenderness: Normal Skin: Tender, Wound (RIGHT HEEL PRESSURE ULCER WITH NECROTIC TISSUE, YELLOW SLOUGH, AND SEROSANGUINEOUS DRAINAGE) Musculoskeletal: Normal, Motor Deficit (LOWER EXTREMITY PARALYSIS ), Sensory Deficit Psychiatric: Normal Mood Description: Calm Affect: Normal Speech Pattern: Clear - Laboratory and Diagnostics Result Diagrams: 02/13/19 07:03 02/13/19 07:03 Labs: 02/13/19 13:32 Foot - Right Gram Stain - Final 02/10/19 16:04 Ankle - Right Gram Stain - Final 02/10/19 16:04 Ankle - Right Wound Culture - Final Methicillin Resis Staph Aureus 02/10/19 16:46 Urine,Catheterized Urine Culture - Final Escherichia Coli 02/10/19 14:35 Blood Blood Culture - Preliminary 02/10/19 14:33 Blood Blood Culture - Preliminary Laboratory WBC 5.4 X10^3/uL (3.6-10.0) 02/13/19 07:03 RBC 3.92 X10^6/uL (3.5-5.4) 02/13/19 07:03 Hgb 8.0 g/dL (12.0-16.0) L 02/13/19 07:03 Hct 26.4 % (36.0-47.0) L 02/13/19 07:03 MCV 67.3 fL (80.0-100.0) L 02/13/19 07:03 MCH 20.5 pg (27.0-34.0) L 02/13/19 07:03 MCHC 30.4 g/dL (33.0-35.0) L 02/13/19 07:03 RDW 22.3 % (11.6-16.5) H 02/13/19 07:03 Plt Count 161 X10^3/uL (150.0-450.0) 02/13/19 07:03 Plt Count Comment Adequate (ADEQUATE) 02/13/19 07:03 MPV 9.0 fL (7.4-11.0) 02/13/19 07:03 Neut % (Auto) 73.2 % (42.0-75.0) 02/13/19 07:03 Lymph % (Auto) 19.2 % (21.0-51.0) L 02/13/19 07:03 [facility] % (Auto) 7.1 % (0.0-13.0) 02/13/19 07:03 Eos % (Auto) 0.1 % (0.9-2.9) L 02/13/19 07:03 Baso % (Auto) 0.4 % (0.2-1.0) 02/13/19 07:03 Neut # (Auto) 3.9 x10^3/uL (2.2-4.8) 02/13/19 07:03 Lymph # (Auto) 1.0 X10^3/uL (1.3-2.9) L 02/13/19 07:03 [facility] # (Auto) 0.4 x10^3/uL (0.3-0.8) 02/13/19 07:03 Eos # (Auto) 0.0 x10^3/uL (0.0-0.2) 02/13/19 07:03 Baso # (Auto) 0.0 X10^3/uL (0.0-0.1) 02/13/19 07:03 Absolute Nucleated RBC 0.0 /100WBC 02/13/19 07:03 Plt Morphology Comment Normal (NORMAL) 02/13/19 07:03 RBC Morphology Abnormal (NORMAL) A 02/13/19 07:03 Hypochromasia 2+ A 02/13/19 07:03 Anisocytosis 2+ A 02/13/19 07:03 Microcytosis 1+ A 02/13/19 07:03 Tear Drop Cells Present 02/11/19 05:19 Ovalocytes Present 02/12/19 05:41 Sodium 145 mmol/L (136-145) 02/13/19 07:03 Corrected Sodium TNP 02/13/19 07:03 Potassium 3.5 mmol/L (3.5-5.1) 02/13/19 07:03 Chloride 115 mmol/L (98-107) H* 02/13/19 07:03 Carbon Dioxide 19.1 mmol/L (21-32) L 02/13/19 07:03 BUN 6 mg/dL (7-18) L 02/13/19 07:03 Creatinine 0.94 mg/dL (0.55-1.02) 02/13/19 07:03 Est GFR (MDRD) Af Amer > 60 (>60) 02/13/19 07:03 Est GFR (MDRD) Non-Af > 60 (>60) 02/13/19 07:03 Glucose 96 mg/dL (65-99) 02/13/19 07:03 Calcium 8.2 mg/dL (8.5-10.1) L 02/13/19 07:03 Corrected Calcium 9.4 mg/dL (8.5-10.1) 02/13/19 07:03 Iron 87 ug/dL (50-175) 02/13/19 07:08 Transferrin 235 mg/dL (202-364) 02/13/19 07:08 Ferritin 4 ng/mL (8-252) L 02/13/19 07:08 Total Bilirubin 0.70 mg/dL (0.2-1.0) 02/13/19 07:03 AST 17 Units/L (15-37) 02/13/19 07:03 ALT 50 Units/L (12-78) 02/13/19 07:03 Alkaline Phosphatase 153 Units/L (46-116) H 02/13/19 07:03 C-Reactive Protein 13.70 mg/L (0-3.0) H 02/10/19 14:33 Total Protein 5.7 g/dL (6.4-8.2) L 02/13/19 07:03 Albumin 2.5 g/dL (3.4-5.0) L 02/13/19 07:03 Globulin 3.2 g/dL (2.5-4.5) 02/13/19 07:03 Albumin/Globulin Ratio 0.8 Ratio (1.1-2.1) L 02/13/19 07:03 Vitamin B12 188 pg/mL (193-986) L 02/13/19 07:08 Folate 16.8 ng/mL (>8.6) 02/13/19 07:08 Specimen Type Catherized urine 02/10/19 23:15 Urine Color Yellow (YELLOW) 02/10/19 23:15 Urine Appearance Mucoid (CLEAR) 02/10/19 23:15 Urine pH 5.0 (5.0 - 8.0) 02/10/19 23:15 Ur Specific [place] 1.015 (1.000-1.030) 02/10/19 23:15 Urine Protein 1+ (NEGATIVE) 02/10/19 23:15 Urine Glucose (UA) Negative (NEGATIVE) 02/10/19 23:15 Urine Ketones Negative (NEGATIVE) 02/10/19 23:15 Urine Occult Blood 2+ (NEGATIVE) 02/10/19 23:15 Urine Nitrite Positive (NEGATIVE) 02/10/19 23:15 Urine Bilirubin Negative (NEGATIVE) 02/10/19 23:15 Urine Urobilinogen Normal (NORMAL) 02/10/19 23:15 Ur Leukocyte Esterase 3+ (NEGATIVE) 02/10/19 23:15 Urine RBC 10-20 /HPF (NONE SEEN) 02/10/19 23:15 Urine WBC Tntc /HPF (NONE SEEN) 02/10/19 23:15 Ur Squamous Epith Cells Rare /HPF (NEGATIVE) 02/10/19 23:15 Amorphous Sediment 1+ /HPF (NEGATIVE) 02/10/19 23:15 Urine Bacteria 3+ /HPF (NEGATIVE) 02/10/19 23:15 Urine Mucus Numerous /HPF (NEGATIVE) 02/10/19 23:15 Ur Culture Indicated? Yes/culture set up 02/10/19 23:15 Vancomycin Trough 14.4 ug/mL (15-20) L 02/11/19 23:48 Tissue Pathology To follow 02/13/19 13:37 Blood Type O NEGATIVE 02/11/19 06:51 Antibody Screen Positive 02/11/19 06:51 Antibody Identification Anti-C Anti-D Anti-V 02/11/19 06:51 Antibody Identification Anti-C Anti-D Anti-V 02/11/19 06:51 Antibody Identification Anti-C Anti-D Anti-V 02/11/19 06:51 Antibody Identification Anti-C Anti-D Anti-V 02/11/19 06:51 Antibody Identification Anti-C Anti-D Anti-V 02/11/19 06:51 Crossmatch See Detail 02/11/19 06:51 - Plan (1) Infected stasis ulcer of right lower extremity Status: Acute Plan: WOUND CARE, SURGICAL CONSULT, WOUND CULTURES, IV ANTIBIOITCS, CONTINUE TO MONITOR (2) UTI (urinary tract infection) Status: Inactive Qualifiers: Urinary tract infection type: acute cystitis Hematuria presence: with hematuria Qualified Code(s): N30.01 - Acute cystitis with hematuria Plan: IV ANTIBIOTICS, CONTINUE TO MONITOR.
--- NOTE | 2019-02-13 17:56 | PCM.PROG ---
Progress Note - Progress Note for Day of Date of Exam: 02/12/19 - Subjective Subjective: WAS ADMITTED FOR AN INFECTED RIGHT FOOT ULCER AND A URINARY TRACT INFECTION. SHE HAS BEEN RECEIVING ORAL CIPRO AT HOME WITHOUT IMPROVEMENT IN SYMPTOMS. TODAY, SHE IS ALERT AND ORIENTED, LYING IN BED ON MORNING ROUNDS. WOUND TO RIGHT FOOT CONTINUES WITH SEROSANGUINEOUS DRAINAGE TODAY. THERE IS NECROTIC TISSUE AND YELLOW SLOUGH NOTED. SHE HAS WET TO DRY DRESSINGS ORDERED. SHE ALSO HAS WOUNDS NOTED TO THE LEFT LATERAL HIP, RIGHT LOWER MEDIAL BUTTOCK, LEFT POSTERIOR THIGH, AND A STOMA TO THE LEFT UPPER QUADRANT. SEE WOUND ASSESSMENT FOR FURTHER DESCRIPTIONS. SHE DENIES PAIN TODAY. NICOLAS CATHETER IS NOTED WITH CLEAR URINE. HER VITALS THIS MORNING ARE: 98.4-376-02-100%-113/59. LABS WERE OBTAINED. ABNORMAL LAB VALUES INCLUDE THE FOLLOWING: RBC 3.37, HGB 6.4, HCT 21.9, SODIUM 148, CHLORIDE 118, BUN 6, GLUCOSE 124, CALCIUM 8.0, ALK PHOS 154, TOTAL PROTEIN 5.6, ALBUMIN 2.6. WOUND, BLOOD, AND URINE CULTURES ARE PENDING. SHE IS CURRENTLY RECEIVING IV VANCOMYCIN AND IV ZOSYN. WE WILL TRANSFUSE TWO UNITS OF PACKED RED BLOOD CELLS WHEN BLOOD IS AVAILABLE. PLANS TO CONSULT WITH PATIENT TOMORROW FOR POSSIBLE DEBRIDEMENT. OTHERWISE, WE PLAN TO FOLLOW UP WITH AM LABS AND CONTINUE TO MONITOR. - Past Medical Family Social History Past Med/Fam/Surg Hx: No changes since H&P Allergies: Allergies Latex, Natural Rubber Allergy (Verified 01/07/18 17:19) - Review of Systems ROS: No change since H&P - Vital Signs and I&O's Vital Signs: Temperature 99.2 F Pulse Rate [Left Brachial] 104 Pulse Rate [Radial] 104 Pulse Rate 112 Respiratory Rate 18 Blood Pressure [Left Arm] 124/67 Blood Pressure [Right Arm] 106/53 Blood Pressure 132/62 O2 Sat by Pulse Oximetry 100 Intake and Output: Intake & Output 02/11/19 02/12/19 02/13/19 02/14/19 11:59 11:59 11:59 11:59 Intake Total 2130 / 2130 4020 / 4020 4660 / 4660 390 / 390 Output Total 2650 / 2650 1150 / 1150 2100 / 2100 1950 / 1950 Balance -520 / -520 2870 / 2870 2560 / 2560 -1560 / -1560 - Physical Exam Oriented: Normal Eyes: Normal Ear: Normal Nose: Normal Throat: Normal Respiratory: Generalized, Diminished Cardiovascular: Tachycardia. negative: S3, S4, Murmur : Normal Auscultation: Bowel Sounds: Normal Palpation: Normal Tenderness: Normal Skin: Tender, Wound (RIGHT HEEL PRESSURE ULCER WITH NECROTIC TISSUE, YELLOW SLOUGH, AND SEROSANGUINEOUS DRAINAGE) Musculoskeletal: Normal, Motor Deficit (LOWER EXTREMITY PARALYSIS ), Sensory Deficit Psychiatric: Normal Mood Description: Calm Affect: Normal Speech Pattern: Clear - Laboratory and Diagnostics Result Diagrams: 02/13/19 07:03 02/13/19 07:03 Labs: 02/13/19 13:32 Foot - Right Gram Stain - Final 02/10/19 16:04 Ankle - Right Gram Stain - Final 02/10/19 16:04 Ankle - Right Wound Culture - Final Methicillin Resis Staph Aureus 02/10/19 16:46 Urine,Catheterized Urine Culture - Final Escherichia Coli 02/10/19 14:35 Blood Blood Culture - Preliminary 02/10/19 14:33 Blood Blood Culture - Preliminary Laboratory WBC 5.4 X10^3/uL (3.6-10.0) 02/13/19 07:03 RBC 3.92 X10^6/uL (3.5-5.4) 02/13/19 07:03 Hgb 8.0 g/dL (12.0-16.0) L 02/13/19 07:03 Hct 26.4 % (36.0-47.0) L 02/13/19 07:03 MCV 67.3 fL (80.0-100.0) L 02/13/19 07:03 MCH 20.5 pg (27.0-34.0) L 02/13/19 07:03 MCHC 30.4 g/dL (33.0-35.0) L 02/13/19 07:03 RDW 22.3 % (11.6-16.5) H 02/13/19 07:03 Plt Count 161 X10^3/uL (150.0-450.0) 02/13/19 07:03 Plt Count Comment Adequate (ADEQUATE) 02/13/19 07:03 MPV 9.0 fL (7.4-11.0) 02/13/19 07:03 Neut % (Auto) 73.2 % (42.0-75.0) 02/13/19 07:03 Lymph % (Auto) 19.2 % (21.0-51.0) L 02/13/19 07:03 [place] % (Auto) 7.1 % (0.0-13.0) 02/13/19 07:03 Eos % (Auto) 0.1 % (0.9-2.9) L 02/13/19 07:03 Baso % (Auto) 0.4 % (0.2-1.0) 02/13/19 07:03 Neut # (Auto) 3.9 x10^3/uL (2.2-4.8) 02/13/19 07:03 Lymph # (Auto) 1.0 X10^3/uL (1.3-2.9) L 02/13/19 07:03 [place] # (Auto) 0.4 x10^3/uL (0.3-0.8) 02/13/19 07:03 Eos # (Auto) 0.0 x10^3/uL (0.0-0.2) 02/13/19 07:03 Baso # (Auto) 0.0 X10^3/uL (0.0-0.1) 02/13/19 07:03 Absolute Nucleated RBC 0.0 /100WBC 02/13/19 07:03 Plt Morphology Comment Normal (NORMAL) 02/13/19 07:03 RBC Morphology Abnormal (NORMAL) A 02/13/19 07:03 Hypochromasia 2+ A 02/13/19 07:03 Anisocytosis 2+ A 02/13/19 07:03 Microcytosis 1+ A 02/13/19 07:03 Tear Drop Cells Present 02/11/19 05:19 Ovalocytes Present 02/12/19 05:41 Sodium 145 mmol/L (136-145) 02/13/19 07:03 Corrected Sodium TNP 02/13/19 07:03 Potassium 3.5 mmol/L (3.5-5.1) 02/13/19 07:03 Chloride 115 mmol/L (98-107) H* 02/13/19 07:03 Carbon Dioxide 19.1 mmol/L (21-32) L 02/13/19 07:03 BUN 6 mg/dL (7-18) L 02/13/19 07:03 Creatinine 0.94 mg/dL (0.55-1.02) 02/13/19 07:03 Est GFR (MDRD) Af Amer > 60 (>60) 02/13/19 07:03 Est GFR (MDRD) Non-Af > 60 (>60) 02/13/19 07:03 Glucose 96 mg/dL (65-99) 02/13/19 07:03 Calcium 8.2 mg/dL (8.5-10.1) L 02/13/19 07:03 Corrected Calcium 9.4 mg/dL (8.5-10.1) 02/13/19 07:03 Iron 87 ug/dL (50-175) 02/13/19 07:08 Transferrin 235 mg/dL (202-364) 02/13/19 07:08 Ferritin 4 ng/mL (8-252) L 02/13/19 07:08 Total Bilirubin 0.70 mg/dL (0.2-1.0) 02/13/19 07:03 AST 17 Units/L (15-37) 02/13/19 07:03 ALT 50 Units/L (12-78) 02/13/19 07:03 Alkaline Phosphatase 153 Units/L (46-116) H 02/13/19 07:03 C-Reactive Protein 13.70 mg/L (0-3.0) H 02/10/19 14:33 Total Protein 5.7 g/dL (6.4-8.2) L 02/13/19 07:03 Albumin 2.5 g/dL (3.4-5.0) L 02/13/19 07:03 Globulin 3.2 g/dL (2.5-4.5) 02/13/19 07:03 Albumin/Globulin Ratio 0.8 Ratio (1.1-2.1) L 02/13/19 07:03 Vitamin B12 188 pg/mL (193-986) L 02/13/19 07:08 Folate 16.8 ng/mL (>8.6) 02/13/19 07:08 Specimen Type Catherized urine 02/10/19 23:15 Urine Color Yellow (YELLOW) 02/10/19 23:15 Urine Appearance Mucoid (CLEAR) 02/10/19 23:15 Urine pH 5.0 (5.0 - 8.0) 02/10/19 23:15 Ur Specific [place] 1.015 (1.000-1.030) 02/10/19 23:15 Urine Protein 1+ (NEGATIVE) 02/10/19 23:15 Urine Glucose (UA) Negative (NEGATIVE) 02/10/19 23:15 Urine Ketones Negative (NEGATIVE) 02/10/19 23:15 Urine Occult Blood 2+ (NEGATIVE) 02/10/19 23:15 Urine Nitrite Positive (NEGATIVE) 02/10/19 23:15 Urine Bilirubin Negative (NEGATIVE) 02/10/19 23:15 Urine Urobilinogen Normal (NORMAL) 02/10/19 23:15 Ur Leukocyte Esterase 3+ (NEGATIVE) 02/10/19 23:15 Urine RBC 10-20 /HPF (NONE SEEN) 02/10/19 23:15 Urine WBC Tntc /HPF (NONE SEEN) 02/10/19 23:15 Ur Squamous Epith Cells Rare /HPF (NEGATIVE) 02/10/19 23:15 Amorphous Sediment 1+ /HPF (NEGATIVE) 02/10/19 23:15 Urine Bacteria 3+ /HPF (NEGATIVE) 02/10/19 23:15 Urine Mucus Numerous /HPF (NEGATIVE) 02/10/19 23:15 Ur Culture Indicated? Yes/culture set up 02/10/19 23:15 Vancomycin Trough 14.4 ug/mL (15-20) L 02/11/19 23:48 Tissue Pathology To follow 02/13/19 13:37 Blood Type O NEGATIVE 02/11/19 06:51 Antibody Screen Positive 02/11/19 06:51 Antibody Identification Anti-C Anti-D Anti-V 02/11/19 06:51 Antibody Identification Anti-C Anti-D Anti-V 02/11/19 06:51 Antibody Identification Anti-C Anti-D Anti-V 02/11/19 06:51 Antibody Identification Anti-C Anti-D Anti-V 02/11/19 06:51 Antibody Identification Anti-C Anti-D Anti-V 02/11/19 06:51 Crossmatch See Detail 02/11/19 06:51 - Plan (1) Infected stasis ulcer of right lower extremity Status: Acute Plan: WOUND CARE, SURGICAL CONSULT, WOUND CULTURES, IV ANTIBIOITCS, CONTINUE TO MONITOR (2) UTI (urinary tract infection) Status: Inactive Qualifiers: Urinary tract infection type: acute cystitis Hematuria presence: with hematuria Qualified Code(s): N30.01 - Acute cystitis with hematuria Plan: IV ANTIBIOTICS, CONTINUE TO MONITOR. (3) Anemia Status: Acute Qualifiers: Anemia type: iron deficiency Iron deficiency anemia type: chronic blood loss Qualified Code(s): D50.0 - Iron deficiency anemia secondary to blood loss (chronic) Plan: MONITOR H&H, TRANSFUSE 2 UNITS PRBC WHEN BLOOD IS AVAILABLE
--- NOTE | 2019-02-13 19:23 | PCM.PROG ---
Progress Note - Progress Note for Day of Date of Exam: 02/13/19 - Subjective Subjective: WAS ADMITTED FOR AN INFECTED RIGHT FOOT ULCER AND A URINARY TRACT INFECTION. SHE HAS BEEN RECEIVING ORAL CIPRO AT HOME WITHOUT IMPROVEMENT IN SYMPTOMS. TODAY, SHE IS ALERT AND ORIENTED, LYING IN BED ON MORNING ROUNDS. WOUND TO RIGHT FOOT CONTINUES WITH SEROSANGUINEOUS DRAINAGE TODAY. THERE IS NECROTIC TISSUE AND YELLOW SLOUGH NOTED. SHE HAS WET TO DRY DRESSINGS ORDERED. SHE ALSO HAS WOUNDS NOTED TO THE LEFT LATERAL HIP, RIGHT LOWER MEDIAL BUTTOCK, LEFT POSTERIOR THIGH, AND A STOMA TO THE LEFT UPPER QUADRANT. SEE WOUND ASSESSMENT FOR FURTHER DESCRIPTIONS. SHE DENIES PAIN TODAY. NICOLAS CATHETER IS NOTED WITH CLEAR URINE. HER VITALS THIS MORNING ARE: 98.6-109-20-98%-123/61. LABS WERE OBTAINED. ABNORMAL LAB VALUES INCLUDE THE FOLLOWING: HGB 8.0, HCT 26.4, CHLORIDE 115, CARBON DIOXIDE 19.1, BUN 6, CALCIUM 8.2, FERRITIN 4, ALK PHOS 153, TOTAL PROTEIN 5.7, ALBUMIN 2.5, VITAMIN B12 188. WOUND CULTURES REPORT GROWTH OF MRSA. URINE CULTURE REPORTS GROWTH OF E.COLI. SHE IS CURRENTLY RECEIVING IV VANCOMYCIN AND IV ZOSYN. SHE RECEIVIED ONE UNIT OF PACKED RED BLOOD CELLS THROUGHOUT THE NIGHT. WE WILL TRANSFUSE AN ADDITIONAL UNIT THIS MORNING. PLANS FOR DEBRIDEMENT OF WOUND THIS MORNING. WE ARE IN AGREEMENT WITH PLAN. OTHERWISE, WE PLAN TO FOLLOW UP WITH AM LABS AND CONTINUE TO MONITOR. - Past Medical Family Social History Past Med/Fam/Surg Hx: No changes since H&P Allergies: Allergies Latex, Natural Rubber Allergy (Verified 01/07/18 17:19) - Review of Systems ROS: No change since H&P - Vital Signs and I&O's Vital Signs: Temperature 99.2 F Pulse Rate [Left Brachial] 104 Pulse Rate [Radial] 104 Pulse Rate 112 Respiratory Rate 18 Blood Pressure [Left Arm] 124/67 Blood Pressure [Right Arm] 106/53 Blood Pressure 132/62 O2 Sat by Pulse Oximetry 100 Intake and Output: Intake & Output 02/11/19 02/12/19 02/13/19 02/14/19 11:59 11:59 11:59 11:59 Intake Total 2130 / 2130 4020 / 4020 4660 / 4660 390 / 390 Output Total 2650 / 2650 1150 / 1150 2100 / 2100 1950 / 1950 Balance -520 / -520 2870 / 2870 2560 / 2560 -1560 / -1560 - Physical Exam Oriented: Normal Eyes: Normal Ear: Normal Nose: Normal Throat: Normal Respiratory: Generalized, Diminished Cardiovascular: Tachycardia. negative: S3, S4, Murmur : Normal Auscultation: Bowel Sounds: Normal Tenderness: Normal Skin: Tender, Wound (RIGHT HEEL PRESSURE ULCER WITH NECROTIC TISSUE, YELLOW SLOUGH, AND SEROSANGUINEOUS DRAINAGE) Musculoskeletal: Normal, Motor Deficit (LOWER EXTREMITY PARALYSIS ), Sensory Def icit Psychiatric: Normal Mood Description: Calm Affect: Normal Speech Pattern: Clear - Laboratory and Diagnostics Result Diagrams: 02/13/19 07:03 02/13/19 07:03 Labs: 02/13/19 13:32 Foot - Right Gram Stain - Final 02/10/19 16:04 Ankle - Right Gram Stain - Final 02/10/19 16:04 Ankle - Right Wound Culture - Final Methicillin Resis Staph Aureus 02/10/19 16:46 Urine,Catheterized Urine Culture - Final Escherichia Coli 02/10/19 14:35 Blood Blood Culture - Preliminary 02/10/19 14:33 Blood Blood Culture - Preliminary Laboratory WBC 5.4 X10^3/uL (3.6-10.0) 02/13/19 07:03 RBC 3.92 X10^6/uL (3.5-5.4) 02/13/19 07:03 Hgb 8.0 g/dL (12.0-16.0) L 02/13/19 07:03 Hct 26.4 % (36.0-47.0) L 02/13/19 07:03 MCV 67.3 fL (80.0-100.0) L 02/13/19 07:03 MCH 20.5 pg (27.0-34.0) L 02/13/19 07:03 MCHC 30.4 g/dL (33.0-35.0) L 02/13/19 07:03 RDW 22.3 % (11.6-16.5) H 02/13/19 07:03 Plt Count 161 X10^3/uL (150.0-450.0) 02/13/19 07:03 Plt Count Comment Adequate (ADEQUATE) 02/13/19 07:03 MPV 9.0 fL (7.4-11.0) 02/13/19 07:03 Neut % (Auto) 73.2 % (42.0-75.0) 02/13/19 07:03 Lymph % (Auto) 19.2 % (21.0-51.0) L 02/13/19 07:03 [place] % (Auto) 7.1 % (0.0-13.0) 02/13/19 07:03 Eos % (Auto) 0.1 % (0.9-2.9) L 02/13/19 07:03 Baso % (Auto) 0.4 % (0.2-1.0) 02/13/19 07:03 Neut # (Auto) 3.9 x10^3/uL (2.2-4.8) 02/13/19 07:03 Lymph # (Auto) 1.0 X10^3/uL (1.3-2.9) L 02/13/19 07:03 [place] # (Auto) 0.4 x10^3/uL (0.3-0.8) 02/13/19 07:03 Eos # (Auto) 0.0 x10^3/uL (0.0-0.2) 02/13/19 07:03 Baso # (Auto) 0.0 X10^3/uL (0.0-0.1) 02/13/19 07:03 Absolute Nucleated RBC 0.0 /100WBC 02/13/19 07:03 Plt Morphology Comment Normal (NORMAL) 02/13/19 07:03 RBC Morphology Abnormal (NORMAL) A 02/13/19 07:03 Hypochromasia 2+ A 02/13/19 07:03 Anisocytosis 2+ A 02/13/19 07:03 Microcytosis 1+ A 02/13/19 07:03 Tear Drop Cells Present 02/11/19 05:19 Ovalocytes Present 02/12/19 05:41 Sodium 145 mmol/L (136-145) 02/13/19 07:03 Corrected Sodium TNP 02/13/19 07:03 Potassium 3.5 mmol/L (3.5-5.1) 02/13/19 07:03 Chloride 115 mmol/L (98-107) H* 02/13/19 07:03 Carbon Dioxide 19.1 mmol/L (21-32) L 02/13/19 07:03 BUN 6 mg/dL (7-18) L 02/13/19 07:03 Creatinine 0.94 mg/dL (0.55-1.02) 02/13/19 07:03 Est GFR (MDRD) Af Amer > 60 (>60) 02/13/19 07:03 Est GFR (MDRD) Non-Af > 60 (>60) 02/13/19 07:03 Glucose 96 mg/dL (65-99) 02/13/19 07:03 Calcium 8.2 mg/dL (8.5-10.1) L 02/13/19 07:03 Corrected Calcium 9.4 mg/dL (8.5-10.1) 02/13/19 07:03 Iron 87 ug/dL (50-175) 02/13/19 07:08 Transferrin 235 mg/dL (202-364) 02/13/19 07:08 Ferritin 4 ng/mL (8-252) L 02/13/19 07:08 Total Bilirubin 0.70 mg/dL (0.2-1.0) 02/13/19 07:03 AST 17 Units/L (15-37) 02/13/19 07:03 ALT 50 Units/L (12-78) 02/13/19 07:03 Alkaline Phosphatase 153 Units/L (46-116) H 02/13/19 07:03 C-Reactive Protein 13.70 mg/L (0-3.0) H 02/10/19 14:33 Total Protein 5.7 g/dL (6.4-8.2) L 02/13/19 07:03 Albumin 2.5 g/dL (3.4-5.0) L 02/13/19 07:03 Globulin 3.2 g/dL (2.5-4.5) 02/13/19 07:03 Albumin/Globulin Ratio 0.8 Ratio (1.1-2.1) L 02/13/19 07:03 Vitamin B12 188 pg/mL (193-986) L 02/13/19 07:08 Folate 16.8 ng/mL (>8.6) 02/13/19 07:08 Specimen Type Catherized urine 02/10/19 23:15 Urine Color Yellow (YELLOW) 02/10/19 23:15 Urine Appearance Mucoid (CLEAR) 02/10/19 23:15 Urine pH 5.0 (5.0 - 8.0) 02/10/19 23:15 Ur Specific [place] 1.015 (1.000-1.030) 02/10/19 23:15 Urine Protein 1+ (NEGATIVE) 02/10/19 23:15 Urine Glucose (UA) Negative (NEGATIVE) 02/10/19 23:15 Urine Ketones Negative (NEGATIVE) 02/10/19 23:15 Urine Occult Blood 2+ (NEGATIVE) 02/10/19 23:15 Urine Nitrite Positive (NEGATIVE) 02/10/19 23:15 Urine Bilirubin Negative (NEGATIVE) 02/10/19 23:15 Urine Urobilinogen Normal (NORMAL) 02/10/19 23:15 Ur Leukocyte Esterase 3+ (NEGATIVE) 02/10/19 23:15 Urine RBC 10-20 /HPF (NONE SEEN) 02/10/19 23:15 Urine WBC Tntc /HPF (NONE SEEN) 02/10/19 23:15 Ur Squamous Epith Cells Rare /HPF (NEGATIVE) 02/10/19 23:15 Amorphous Sediment 1+ /HPF (NEGATIVE) 02/10/19 23:15 Urine Bacteria 3+ /HPF (NEGATIVE) 02/10/19 23:15 Urine Mucus Numerous /HPF (NEGATIVE) 02/10/19 23:15 Ur Culture Indicated? Yes/culture set up 02/10/19 23:15 Vancomycin Trough 14.4 ug/mL (15-20) L 02/11/19 23:48 Tissue Pathology To follow 02/13/19 13:37 Blood Type O NEGATIVE 02/11/19 06:51 Antibody Screen Positive 02/11/19 06:51 Antibody Identification Anti-C Anti-D Anti-V 02/11/19 06:51 Antibody Identification Anti-C Anti-D Anti-V 02/11/19 06:51 Antibody Identification Anti-C Anti-D Anti-V 02/11/19 06:51 Antibody Identification Anti-C Anti-D Anti-V 02/11/19 06:51 Antibody Identification Anti-C Anti-D Anti-V 02/11/19 06:51 Crossmatch See Detail 02/11/19 06:51 - Plan (1) Infected stasis ulcer of right lower extremity Status: Acute Plan: WOUND CARE, DEBRIDEMENT OF WOUND TODAY, IV ANTIBIOITCS, CONTINUE TO MONITOR (2) Anemia Status: Acute Qualifiers: Anemia type: iron deficiency Iron deficiency anemia type: chronic blood l oss Qualified Code(s): D50.0 - Iron deficiency anemia secondary to blood loss (chronic) Plan: MONITOR H&H, TRANSFUSE PRBC (3) Urinary tract infection Status: Acute Qualifiers: Urinary tract infection type: acute cystitis Hematuria presence: without hematuria Qualified Code(s): N30.00 - Acute cystitis without hematuria Plan: IV ANTIBIOTICS, IV FLUIDS, CONTINUE TO MONITOR
[2019-02-13] MEDS: TOPAMAX PO SCH (21:55)
[2019-02-13] MEDS: SEROquel TAB 100 MG PO SCH (21:56)
[2019-02-13 23:00] LABS: CREATININE 0.62 mg/dL (0.55-1.02)
[2019-02-13 23:05] LABS: VANCOMYCIN,TROUGH 29.5 ug/mL (15-20)
[2019-02-13] MEDS: PHENERGAN INJ 25 MG IM PRN (23:41)
[2019-02-13] MEDS ORDERED: PHARMACY CONSULT - VANCOMYCIN XX SCH (23:45)
[2019-02-14] MEDS: NS 1000 ML 1,000 ML IV SCH ×3 (04:00→18:48)
[2019-02-14 06:31] LABS: BASOPHILS % (AUTO) 0.7 % (0.2-1.0); HEMATOCRIT 28.5 % (36.0-47.0); HEMOGLOBIN 9.1 g/dL (12.0-16.0); LYMPHOCYTES # (AUTO) 1.3 X10^3/uL (1.3-2.9); LYMPHOCYTES % (AUTO) 24.7 % (21.0-51.0); MEAN CORPUSCULAR HEMOGLOBIN 21.5 pg (27.0-34.0); MEAN CORPUSCULAR HGB CONC 31.9 g/dL (33.0-35.0); MEAN CORPUSCULAR VOLUME 67.5 fL (80.0-100.0); MEAN PLATELET VOLUME 9.9 fL (7.4-11.0); MONOCYTES # (AUTO) 0.4 x10^3/uL (0.3-0.8); MONOCYTES % (AUTO) 7.7 % (0.0-13.0); NEUTROPHILS # (AUTO) 3.6 x10^3/uL (2.2-4.8); NEUTROPHILS % (AUTO) 66.9 % (42.0-75.0); PLATELET COUNT 190 X10^3/uL (150.0-450.0); RED BLOOD COUNT 4.22 X10^6/uL (3.5-5.4); RED CELL DISTRIBUTION WIDTH 24.2 % (11.6-16.5); WHITE BLOOD COUNT 5.4 X10^3/uL (3.6-10.0)
[2019-02-14 06:35] LABS: ALANINE AMINOTRANSFERASE 36 Units/L (12-78); ALBUMIN 2.3 g/dL (3.4-5.0); ALKALINE PHOSPHATASE 140 Units/L (46-116); ASPARTATE AMINO TRANSFERASE 9 Units/L (15-37); BLOOD UREA NITROGEN 9 mg/dL (7-18); CALCIUM 7.7 mg/dL (8.5-10.1); CARBON DIOXIDE 16.9 mmol/L (21-32); COR CA(FOR HYPOALB) 9.1 mg/dL (8.5-10.1); COR NA(FOR HYPERGLY) 149 mmol/L (136-145); CREATININE 0.73 mg/dL (0.55-1.02); SODIUM 149 mmol/L (136-145); TOTAL PROTEIN 5.2 g/dL (6.4-8.2); eGFR NON BLACK RACES > 60 (>60)
[2019-02-14] MEDS: ZOSYN VIAL 3.375 GRAMS 3.375 G in NS 100 ML IV + SPIKE MINIBAG* 100 ML IV SCH ×3 (06:38→21:20)
[2019-02-14 06:44] LABS: CHLORIDE 119 mmol/L (98-107)
[2019-02-14 07:02] LABS: ANISOCYTOSIS 3+; HYPOCHROMASIA 2+; MICROCYTOSIS 1+; PLATELET MORPHOLOGY COMMENT NORMAL (NORMAL)
[2019-02-14] MEDS: VSL#3 PO SCH ×2 (09:13→21:18)
[2019-02-14] MEDS: ELIQUIS PO SCH ×2 (09:13→21:19)
[2019-02-14] MEDS: PROTONIX TAB 40 MG PO SCH (09:14)
[2019-02-14] MEDS: FOLIC ACID TAB 1 MG PO SCH (09:14)
[2019-02-14] MEDS: TOPAMAX TAB 100 MG PO SCH (09:14)
[2019-02-14] MEDS: VISTARIL PO SCH (09:14)
[2019-02-14] MEDS: NEURONTIN CAP 300 MG PO SCH ×2 (09:14→21:18)
[2019-02-14] MEDS: SYNTHROID 125 mcg TAB PO SCH (09:15)
[2019-02-14] MEDS: DIFLUNISAL 500 MG PO SCH (09:18)
[2019-02-14] MEDS: VANCOMYCIN HCL 1 GM VIAL 1 G in NS 250 ML IV 250 ML IV SCH ×2 (09:19→21:26)
[2019-02-14] MEDS: TAPENTADOL 50 MG PO SCH ×2 (09:19→21:27)
[2019-02-14] MEDS: TAPENTADOL 100 MG PO SCH ×2 (09:21→21:29)
[2019-02-14] MEDS: PEPCID 20 MG IV PREMIX* 20 MG/50 ML BAG IV SCH ×2 (09:22→21:28)
[2019-02-14] MEDS: PROCALAMINE 3 % 1,000 ML IV SCH (12:24)
[2019-02-14] MEDS: ALBUMIN HUMAN 25%- 100 ML 100 ML IV SCH (12:26)
[2019-02-14] MEDS ORDERED: FIORICET TAB PO PRN (12:37)
--- NOTE | 2019-02-14 13:56 | DR.PROGNOT ---
Hospital Progress Notes - Progress Note for Day of: Progress Note Date: 02/14/19 - Past Medical Family Social History Past Med/Fam/Surg Hx: No changes since H&P Allergies: Allergies Latex, Natural Rubber Allergy (Verified 01/07/18 17:19) - Review Of Systems ROS: No change since H&P - Vital Signs Vital Signs: Temperature 98.2 F Pulse Rate [Left Brachial] 95 Pulse Rate [Radial] 104 Pulse Rate 112 Respiratory Rate 22 Blood Pressure [Left Arm] 128/62 Blood Pressure [Right Arm] 106/53 Blood Pressure 132/62 O2 Sat by Pulse Oximetry 100 - Physical Exam Oriented: Normal Eyes: Normal Ear: Normal Nose: Normal Throat: Normal Respiratory: Generalized, Diminished Cardiovascular: Tachycardia. negative: S3, S4, Murmur : Normal GI:Auscultation: Normal GI:Palpation: Normal GI: Tenderness: Normal Skin: Tender, Wound (Rt heel ulcer 4x3 cm deep into the heel with exposed bone and deeper soft tissue , no bleeding . s/o excisional debridement ) Musculoskeletal: Normal, Motor Deficit (LOWER EXTREMITY PARALYSIS ), Sensory De ficit Psychiatric: Normal Mood Description: Calm Affect: Normal Speech Pattern: Clear - Laboratory and Diagnostics Result Diagrams: 02/14/19 06:04 02/14/19 06:04 Labs: 02/13/19 13:32 Foot - Right Gram Stain - Final 02/13/19 13:32 Foot - Right Wound Culture - Preliminary 02/10/19 16:04 Ankle - Right Gram Stain - Final 02/10/19 16:04 Ankle - Right Wound Culture - Final Methicillin Resis Staph Aureus 02/10/19 16:46 Urine,Catheterized Urine Culture - Final Escherichia Coli 02/10/19 14:35 Blood Blood Culture - Preliminary 02/10/19 14:33 Blood Blood Culture - Preliminary Laboratory WBC 5.4 X10^3/uL (3.6-10.0) 02/14/19 06:04 RBC 4.22 X10^6/uL (3.5-5.4) 02/14/19 06:04 Hgb 9.1 g/dL (12.0-16.0) L 02/14/19 06:04 Hct 28.5 % (36.0-47.0) L 02/14/19 06:04 MCV 67.5 fL (80.0-100.0) L 02/14/19 06:04 MCH 21.5 pg (27.0-34.0) L 02/14/19 06:04 MCHC 31.9 g/dL (33.0-35.0) L 02/14/19 06:04 RDW 24.2 % (11.6-16.5) H 02/14/19 06:04 Plt Count 190 X10^3/uL (150.0-450.0) 02/14/19 06:04 Plt Count Comment Adequate (ADEQUATE) 02/14/19 06:04 MPV 9.9 fL (7.4-11.0) 02/14/19 06:04 Neut % (Auto) 66.9 % (42.0-75.0) 02/14/19 06:04 Lymph % (Auto) 24.7 % (21.0-51.0) 02/14/19 06:04 [place] % (Auto) 7.7 % (0.0-13.0) 02/14/19 06:04 Eos % (Auto) 0.0 % (0.9-2.9) L 02/14/19 06:04 Baso % (Auto) 0.7 % (0.2-1.0) 02/14/19 06:04 Neut # (Auto) 3.6 x10^3/uL (2.2-4.8) 02/14/19 06:04 Lymph # (Auto) 1.3 X10^3/uL (1.3-2.9) 02/14/19 06:04 [place] # (Auto) 0.4 x10^3/uL (0.3-0.8) 02/14/19 06:04 Eos # (Auto) 0.0 x10^3/uL (0.0-0.2) 02/14/19 06:04 Baso # (Auto) 0.0 X10^3/uL (0.0-0.1) 02/14/19 06:04 Absolute Nucleated RBC 0.1 /100WBC 02/14/19 06:04 Plt Morphology Comment Normal (NORMAL) 02/14/19 06:04 RBC Morphology Abnormal (NORMAL) A 02/14/19 06:04 Hypochromasia 2+ A 02/14/19 06:04 Anisocytosis 3+ A 02/14/19 06:04 Microcytosis 1+ A 02/14/19 06:04 Tear Drop Cells Present 02/11/19 05:19 Ovalocytes Present 02/12/19 05:41 Sodium 149 mmol/L (136-145) H 02/14/19 06:04 Corrected Sodium 149 mmol/L (136-145) H 02/14/19 06:04 Potassium 3.2 mmol/L (3.5-5.1) L 02/14/19 06:04 Chloride 119 mmol/L (98-107) H* 02/14/19 06:04 Carbon Dioxide 16.9 mmol/L (21-32) L 02/14/19 06:04 BUN 9 mg/dL (7-18) 02/14/19 06:04 Creatinine 0.73 mg/dL (0.55-1.02) 02/14/19 06:04 Est GFR (MDRD) Af Amer > 60 (>60) 02/14/19 06:04 Est GFR (MDRD) Non-Af > 60 (>60) 02/14/19 06:04 Glucose 117 mg/dL (65-99) H 02/14/19 06:04 Calcium 7.7 mg/dL (8.5-10.1) L 02/14/19 06:04 Corrected Calcium 9.1 mg/dL (8.5-10.1) 02/14/19 06:04 Iron 87 ug/dL (50-175) 02/13/19 07:08 Transferrin 235 mg/dL (202-364) 02/13/19 07:08 Ferritin 4 ng/mL (8-252) L 02/13/19 07:08 Total Bilirubin 0.30 mg/dL (0.2-1.0) 02/14/19 06:04 AST 9 Units/L (15-37) L 02/14/19 06:04 ALT 36 Units/L (12-78) 02/14/19 06:04 Alkaline Phosphatase 140 Units/L (46-116) H 02/14/19 06:04 C-Reactive Protein 13.70 mg/L (0-3.0) H 02/10/19 14:33 Total Protein 5.2 g/dL (6.4-8.2) L 02/14/19 06:04 Albumin 2.3 g/dL (3.4-5.0) L 02/14/19 06:04 Globulin 2.9 g/dL (2.5-4.5) 02/14/19 06:04 Albumin/Globulin Ratio 0.8 Ratio (1.1-2.1) L 02/14/19 06:04 Vitamin B12 188 pg/mL (193-986) L 02/13/19 07:08 Folate 16.8 ng/mL (>8.6) 02/13/19 07:08 Specimen Type Catherized urine 02/10/19 23:15 Urine Color Yellow (YELLOW) 02/10/19 23:15 Urine Appearance Mucoid (CLEAR) 02/10/19 23:15 Urine pH 5.0 (5.0 - 8.0) 02/10/19 23:15 Ur Specific [place] 1.015 (1.000-1.030) 02/10/19 23:15 Urine Protein 1+ (NEGATIVE) 02/10/19 23:15 Urine Glucose (UA) Negative (NEGATIVE) 02/10/19 23:15 Urine Ketones Negative (NEGATIVE) 02/10/19 23:15 Urine Occult Blood 2+ (NEGATIVE) 02/10/19 23:15 Urine Nitrite Positive (NEGATIVE) 02/10/19 23:15 Urine Bilirubin Negative (NEGATIVE) 02/10/19 23:15 Urine Urobilinogen Normal (NORMAL) 02/10/19 23:15 Ur Leukocyte Esterase 3+ (NEGATIVE) 02/10/19 23:15 Urine RBC 10-20 /HPF (NONE SEEN) 02/10/19 23:15 Urine WBC Tntc /HPF (NONE SEEN) 02/10/19 23:15 Ur Squamous Epith Cells Rare /HPF (NEGATIVE) 02/10/19 23:15 Amorphous Sediment 1+ /HPF (NEGATIVE) 02/10/19 23:15 Urine Bacteria 3+ /HPF (NEGATIVE) 02/10/19 23:15 Urine Mucus Numerous /HPF (NEGATIVE) 02/10/19 23:15 Ur Culture Indicated? Yes/culture set up 02/10/19 23:15 Vancomycin Trough 29.5 ug/mL (15-20) H* 02/13/19 22:18 Random Vancomycin 20.0 ug/mL 02/14/19 06:04 Tissue Pathology To follow 06/24/19 13:37 Blood Type O NEGATIVE 02/11/19 06:51 Antibody Screen Positive 02/11/19 06:51 Antibody Identification Anti-C Anti-D Anti-V 02/11/19 06:51 Antibody Identification Anti-C Anti-D Anti-V 02/11/19 06:51 Antibody Identification Anti-C Anti-D Anti-V 02/11/19 06:51 Antibody Identification Anti-C Anti-D Anti-V 02/11/19 06:51 Antibody Identification Anti-C Anti-D Anti-V 02/11/19 06:51 Crossmatch See Detail 02/11/19 06:51 - Assessment and Plan 1: deep Rt heel ulcer , ( decubitus ulcer stage 111 ). 3.5x3 cm down to the bone obesity and limited ambulation with severe neuropathy. same local care and IV ATB then woundvac in two days . - Problem Patient Problems: Patient Problems Anemia (Acute) D64.9 Urinary tract infection (Acute) N39.0 Infected stasis ulcer of right lower extremity (Acute) I83.219, L97.919 Failure of outpatient treatment (Acute) Z78.9 Foot ulcer (Acute) L97.509
[2019-02-14] MEDS ORDERED: POTASSIUM CHL 60 MEQ/NS 0.45% 500 ML IV PRN (17:37)
[2019-02-14] MEDS ORDERED: POTASSIUM CHL 40 MEQ/NS 0.45% 500 ML IV PRN (17:37)
[2019-02-14] MEDS ORDERED: POTASSIUM CHLORIDE LIQ 20 MEQ UDC PO PRN (17:37)
[2019-02-14] MEDS ORDERED: MICRO K EXTEN CAP 10 MEQ PO PRN (17:37)
[2019-02-14] MEDS ORDERED: K-RIDER 10 MEQ/NS 100 ML 10 MEQ/100 ML BAG IV PRN (17:37)
[2019-02-14] MEDS ORDERED: K-DUR TAB 20 MEQ PO PRN (17:37)
[2019-02-14] MEDS ORDERED: COLACE CAP 100 MG PO PRN (17:38)
[2019-02-14] MEDS ORDERED: MILK OF MAGNESIA PO PRN (17:38)
[2019-02-14] MEDS ORDERED: PHARMACY COMMENT IV NR (20:30)
[2019-02-14] MEDS: TOPAMAX PO SCH (21:19)
[2019-02-14] MEDS: SEROquel TAB 100 MG PO SCH (21:19)
[2019-02-15] MEDS: NS 1000 ML 1,000 ML IV SCH (03:35)
[2019-02-15] MEDS: ZOSYN VIAL 3.375 GRAMS 3.375 G in NS 100 ML IV + SPIKE MINIBAG* 100 ML IV SCH ×3 (05:56→22:09)
[2019-02-15] MEDS: KLOR-CON PO PRN ×2 (06:25→20:35)
[2019-02-15 07:05] LABS: BASOPHILS % (AUTO) 0.7 % (0.2-1.0); HEMATOCRIT 31.4 % (36.0-47.0); HEMOGLOBIN 9.6 g/dL (12.0-16.0); LYMPHOCYTES # (AUTO) 1.7 X10^3/uL (1.3-2.9); LYMPHOCYTES % (AUTO) 31.7 % (21.0-51.0); MEAN CORPUSCULAR HEMOGLOBIN 21.2 pg (27.0-34.0); MEAN CORPUSCULAR HGB CONC 30.5 g/dL (33.0-35.0); MEAN CORPUSCULAR VOLUME 69.7 fL (80.0-100.0); MEAN PLATELET VOLUME 9.4 fL (7.4-11.0); MONOCYTES # (AUTO) 0.4 x10^3/uL (0.3-0.8); MONOCYTES % (AUTO) 7.1 % (0.0-13.0); NEUTROPHILS # (AUTO) 3.3 x10^3/uL (2.2-4.8); NEUTROPHILS % (AUTO) 60.5 % (42.0-75.0); PLATELET COUNT 87 X10^3/uL (150.0-450.0); RED BLOOD COUNT 4.51 X10^6/uL (3.5-5.4); RED CELL DISTRIBUTION WIDTH 23.9 % (11.6-16.5); WHITE BLOOD COUNT 5.4 X10^3/uL (3.6-10.0)
[2019-02-15 07:15] LABS: ALANINE AMINOTRANSFERASE 31 Units/L (12-78); ALBUMIN 2.6 g/dL (3.4-5.0); ALKALINE PHOSPHATASE 119 Units/L (46-116); ASPARTATE AMINO TRANSFERASE 16 Units/L (15-37); BLOOD UREA NITROGEN 12 mg/dL (7-18); CALCIUM 7.3 mg/dL (8.5-10.1); CARBON DIOXIDE 17.5 mmol/L (21-32); COR CA(FOR HYPOALB) 8.4 mg/dL (8.5-10.1); CREATININE 0.78 mg/dL (0.55-1.02); SODIUM 146 mmol/L (136-145); TOTAL PROTEIN 5.5 g/dL (6.4-8.2); eGFR NON BLACK RACES > 60 (>60)
[2019-02-15 07:18] LABS: CHLORIDE 115 mmol/L (98-107)
[2019-02-15 07:23] LABS: ANISOCYTOSIS 2+; HYPOCHROMASIA 2+; MICROCYTOSIS 1+; PLATELET MORPHOLOGY COMMENT NORMAL (NORMAL)
[2019-02-15] MEDS: ALBUMIN HUMAN 25%- 100 ML 100 ML IV SCH (09:19)
[2019-02-15] MEDS: PEPCID 20 MG IV PREMIX* 20 MG/50 ML BAG IV SCH ×2 (09:22→22:08)
[2019-02-15] MEDS: TOPAMAX TAB 100 MG PO SCH (09:26)
[2019-02-15] MEDS: SYNTHROID 125 mcg TAB PO SCH (09:26)
[2019-02-15] MEDS: VISTARIL PO SCH (09:26)
[2019-02-15] MEDS: ELIQUIS PO SCH ×2 (09:26→22:06)
[2019-02-15] MEDS: VSL#3 PO SCH ×2 (09:26→22:06)
[2019-02-15] MEDS: NEURONTIN CAP 300 MG PO SCH ×2 (09:27→22:06)
[2019-02-15] MEDS: PROTONIX TAB 40 MG PO SCH (09:27)
[2019-02-15] MEDS: FOLIC ACID TAB 1 MG PO SCH (09:27)
[2019-02-15] MEDS: DIFLUNISAL 500 MG PO SCH (09:28)
[2019-02-15] MEDS: TAPENTADOL 50 MG PO SCH ×2 (09:28→22:15)
[2019-02-15] MEDS: TAPENTADOL 100 MG PO SCH ×2 (09:28→22:15)
[2019-02-15] MEDS ORDERED: TORADOL 60 MG VIAL IM NR (09:45)
[2019-02-15] MEDS: PHENERGAN INJ 25 MG IM PRN ×2 (10:02→20:35)
[2019-02-15] MEDS: VANCOMYCIN HCL 1 GM VIAL 1 G in NS 250 ML IV 250 ML IV SCH ×2 (10:39→22:09)
--- NOTE | 2019-02-15 11:11 | DR.PROGNOT ---
Hospital Progress Notes - Progress Note for Day of: Progress Note Date: 02/15/19 - Chief Complaint Chief Complaint: no new c/o . minimal drainage from the heel ulcer . afebrile . - Past Medical Family Social History Past Med/Fam/Surg Hx: No changes since H&P Allergies: Allergies Latex, Natural Rubber Allergy (Verified 01/07/18 17:19) - Review Of Systems ROS: No change since H&P - Vital Signs Vital Signs: Temperature 98.0 F Pulse Rate [Left Brachial] 87 Pulse Rate [Radial] 104 Pulse Rate 112 Respiratory Rate 20 Blood Pressure [Left Arm] 114/75 Blood Pressure [Right Arm] 106/53 Blood Pressure 132/62 O2 Sat by Pulse Oximetry 99 - Physical Exam Oriented: Normal Eyes: Normal Ear: Normal Nose: Normal Throat: Normal Respiratory: Generalized, Diminished Cardiovascular: Tachycardia. negative: S3, S4, Murmur : Normal GI:Auscultation: Normal GI:Palpation: Normal GI: Tenderness: Normal Skin: Tender, Wound (Rt heel ulcer 4x3 cm deep into the heel with exposed bone and deeper soft tissue , no bleeding . s/p excisional debridement ) Musculoskeletal: Normal, Motor Deficit (LOWER EXTREMITY PARALYSIS ), Sensory Deficit Psychiatric: Normal Mood Description: Calm Affect: Normal Speech Pattern: Clear, Appropriate - Laboratory and Diagnostics Result Diagrams: 02/15/19 05:26 02/15/19 08:35 Labs: 02/13/19 13:32 Foot - Right Gram Stain - Final 02/13/19 13:32 Foot - Right Wound Culture - Preliminary 02/10/19 16:04 Ankle - Right Gram Stain - Final 02/10/19 16:04 Ankle - Right Wound Culture - Final Methicillin Resis Staph Aureus 02/10/19 16:46 Urine,Catheterized Urine Culture - Final Escherichia Coli 02/10/19 14:35 Blood Blood Culture - Preliminary 02/10/19 14:33 Blood Blood Culture - Preliminary Laboratory WBC 5.4 X10^3/uL (3.6-10.0) 02/15/19 05:26 RBC 4.51 X10^6/uL (3.5-5.4) 02/15/19 05:26 Hgb 9.6 g/dL (12.0-16.0) L 02/15/19 05:26 Hct 31.4 % (36.0-47.0) L 02/15/19 05:26 MCV 69.7 fL (80.0-100.0) L 02/15/19 05:26 MCH 21.2 pg (27.0-34.0) L 02/15/19 05: MCHC 30.5 g/dL (33.0-35.0) L 02/15/19 05: RDW 23.9 % (11.6-16.5) H 02/15/19 05: Plt Count 87 X10^3/uL (150.0-450.0) L 02/15/19 05:26 Plt Count Comment Decreased (ADEQUATE) A 02/15/19 05: MPV 9.4 fL (7.4-11.0) 02/15/19 05:26 Neut % (Auto) 60.5 % (42.0-75.0) 02/15/19 05: Lymph % (Auto) 31.7 % (21.0-51.0) 02/15/19 05:26 [place] % (Auto) 7.1 % (0.0-13.0) 02/15/19 05:26 Eos % (Auto) 0.0 % (0.9-2.9) L 02/15/19 05: Baso % (Auto) 0.7 % (0.2-1.0) 02/15/19 05: Neut # (Auto) 3.3 x10^3/uL (2.2-4.8) 02/15/19 05:26 Lymph # (Auto) 1.7 X10^3/uL (1.3-2.9) 02/15/19 05:26 [place] # (Auto) 0.4 x10^3/uL (0.3-0.8) 02/15/19 05:26 Eos # (Auto) 0.0 x10^3/uL (0.0-0.2) 02/15/19 05: Baso # (Auto) 0.0 X10^3/uL (0.0-0.1) 02/15/19 05:26 Absolute Nucleated RBC 0.0 /100WBC 02/15/19 05:26 Plt Clumps, EDTA Rare 02/15/19 05:26 Plt Morphology Comment Normal (NORMAL) 02/15/19 05:26 RBC Morphology Abnormal (NORMAL) A 02/15/19 05:26 Hypochromasia 2+ A 02/15/19 05:26 Anisocytosis 2+ A 02/15/19 05:26 Microcytosis 1+ A 02/15/19 05:26 Tear Drop Cells Present 02/11/19 05:19 Ovalocytes Present 02/12/19 05:41 Sodium 146 mmol/L (136-145) H 02/15/19 05:26 Corrected Sodium TNP 02/15/19 05:26 Potassium 3.8 mmol/L (3.5-5.1) 02/15/19 08:35 Chloride 115 mmol/L (98-107) H* 02/15/19 05:26 Carbon Dioxide 17.5 mmol/L (21-32) L 02/15/19 05:26 BUN 12 mg/dL (7-18) 02/15/19 05:26 Creatinine 0.78 mg/dL (0.55-1.02) 02/15/19 05:26 Est GFR (MDRD) Af Amer > 60 (>60) 02/15/19 05:26 Est GFR (MDRD) Non-Af > 60 (>60) 02/15/19 05:26 Glucose 83 mg/dL (65-99) 02/15/19 05:26 Calcium 7.3 mg/dL (8.5-10.1) L 02/15/19 05:26 Corrected Calcium 8.4 mg/dL (8.5-10.1) L 02/15/19 05:26 Magnesium 2.0 mg/dL (1.7-2.9) 02/14/19 06:04 Iron 87 ug/dL (50-175) 02/13/19 07:08 Transferrin 235 mg/dL (202-364) 02/13/19 07:08 Ferritin 4 ng/mL (8-252) L 02/13/19 07:08 Total Bilirubin 0.30 mg/dL (0.2-1.0) 02/15/19 05:26 AST 16 Units/L (15-37) 02/15/19 05:26 ALT 31 Units/L (12-78) 02/15/19 05:26 Alkaline Phosphatase 119 Units/L (46-116) H 02/15/19 05:26 C-Reactive Protein 13.70 mg/L (0-3.0) H 02/10/19 14:33 Total Protein 5.5 g/dL (6.4-8.2) L 02/15/19 05:26 Albumin 2.6 g/dL (3.4-5.0) L 02/15/19 05:26 Globulin 2.9 g/dL (2.5-4.5) 02/15/19 05:26 Albumin/Globulin Ratio 0.9 Ratio (1.1-2.1) L 02/15/19 05:26 Vitamin B12 188 pg/mL (193-986) L 02/13/19 07:08 Folate 16.8 ng/mL (>8.6) 02/13/19 07:08 Specimen Type Catherized urine 02/10/19 23:15 Urine Color Yellow (YELLOW) 02/10/19 23:15 Urine Appearance Mucoid (CLEAR) 02/10/19 23:15 Urine pH 5.0 (5.0 - 8.0) 02/10/19 23:15 Ur Specific [place] 1.015 (1.000-1.030) 02/10/19 23:15 Urine Protein 1+ (NEGATIVE) 02/10/19 23:15 Urine Glucose (UA) Negative (NEGATIVE) 02/10/19 23:15 Urine Ketones Negative (NEGATIVE) 02/10/19 23:15 Urine Occult Blood 2+ (NEGATIVE) 02/10/19 23:15 Urine Nitrite Positive (NEGATIVE) 02/10/19 23:15 Urine Bilirubin Negative (NEGATIVE) 02/10/19 23:15 Urine Urobilinogen Normal (NORMAL) 02/10/19 23:15 Ur Leukocyte Esterase 3+ (NEGATIVE) 02/10/19 23:15 Urine RBC 10-20 /HPF (NONE SEEN) 02/10/19 23:15 Urine WBC Tntc /HPF (NONE SEEN) 02/10/19 23:15 Ur Squamous Epith Cells Rare /HPF (NEGATIVE) 02/10/19 23:15 Amorphous Sediment 1+ /HPF (NEGATIVE) 02/10/19 23:15 Urine Bacteria 3+ /HPF (NEGATIVE) 02/10/19 23:15 Urine Mucus Numerous /HPF (NEGATIVE) 02/10/19 23:15 Ur Culture Indicated? Yes/culture set up 02/10/19 23:15 Vancomycin Trough 29.5 ug/mL (15-20) H* 02/13/19 22:18 Random Vancomycin 20.0 ug/mL 02/14/19 06:04 Tissue Pathology To follow 02/13/19 13:37 Blood Type O NEGATIVE 02/11/19 06:51 Antibody Screen Positive 02/11/19 06:51 Antibody Identification Anti-C Anti-D Anti-V 02/11/19 06:51 Antibody Identification Anti-C Anti-D Anti-V 02/11/19 06:51 Antibody Identification Anti-C Anti-D Anti-V 02/11/19 06:51 Antibody Identification Anti-C Anti-D Anti-V 02/11/19 06:51 Antibody Identification Anti-C Anti-D Anti-V 02/11/19 06:51 Crossmatch See Detail 02/11/19 06:51 - Assessment and Plan 1: deep Rt heel ulcer , ( decubitus ulcer stage 111 ). 3.5x3 cm down to the bone obesity and limited ambulation with severe neuropathy. same local care and IV ATB then woundvac in two days . - Problem Patient Problems: Patient Problems Anemia (Acute) D64.9 Urinary tract infection (Acute) N39.0 Infected stasis ulcer of right lower extremity (Acute) I83.219, L97.919 Failure of outpatient treatment (Acute) Z78.9 Foot ulcer (Acute) L97.509
[2019-02-15] MEDS: ZANAFLEX PO PRN (20:36)
--- NOTE | 2019-02-15 20:58 | PCM.PROG ---
Progress Note - Progress Note for Day of Date of Exam: 02/14/19 - Subjective Subjective: WAS ADMITTED FOR AN INFECTED RIGHT FOOT ULCER AND A URINARY TRACT INFECTION. SHE HAS BEEN RECEIVING ORAL CIPRO AT HOME WITHOUT IMPROVEMENT IN SYMPTOMS. TOOK HER TO THE OR YESTERDAY FOR DEBRIDEMENT. TODAY, SHE IS ALERT AND ORIENTED, LYING IN BED ON MORNING ROUNDS. RIGHT FOOT IS NOTED WITH A DRESSING. DRESSING IS DRY AND INTACT AND IS MONITORING WOUND. SHE ALSO HAS WOUNDS NOTED TO THE LEFT LATERAL HIP, RIGHT LOWER MEDIAL BUTTOCK, LEFT POSTERIOR THIGH, AND A STOMA TO THE LEFT UPPER QUADRANT. SEE WOUND ASSESSMENT FOR FURTHER DESCRIPTIONS. SHE REPORTS A HEADACHE TODAY. NICOLAS CATHETER IS NOTED WITH CLEAR URINE. HER VITALS THIS MORNING ARE: 98.6-109-20-98%-123/61. LABS WERE OBTAINED. ABNORMAL LAB VALUES INCLUDE THE FOLLOWING: HGB 9.1, HCT 28.5, SODIUM 149, POTASSIUM 3.2, CHLORIDE 119, GLUCOSE 117, CALCIUM 7.7, AST 9, TOTAL PROTEIN 5.2, ALBUMIN 2.3. WOUND CULTURES REPORT GROWTH OF MRSA. URINE CULTURE REPORTS GROWTH OF E.COLI. SHE IS CURRENTLY RECEIVING IV VANCOMYCIN AND IV ZOSYN. WE WILL START FIORCET FOR HEADACHE AND ADD PROCAL AND ALBUMIN FOR PROTEIN DEFICIENCY. OTHERWISE, WE PLAN TO FOLLOW UP WITH AM LABS AND CONTINUE TO MONITOR. - Past Medical Family Social History Past Med/Fam/Surg Hx: No changes since H&P Allergies: Allergies Latex, Natural Rubber Allergy (Verified 01/07/18 17:19) - Review of Systems ROS: No change since H&P - Vital Signs and I&O's Vital Signs: Temperature 98.0 F Pulse Rate [Left Brachial] 92 Pulse Rate [Radial] 104 Pulse Rate 112 Respiratory Rate 22 Blood Pressure [Left Arm] 123/80 Blood Pressure [Right Arm] 106/53 Blood Pressure 132/62 O2 Sat by Pulse Oximetry 98 Intake and Output: Intake & Output 02/13/19 02/14/19 02/15/19 02/16/19 11:59 11:59 11:59 11:59 Intake Total 4660 / 4660 2860 / 2860 3080 / 3080 660 / 660 Output Total 2100 / 2100 4400 / 4400 1150 / 1150 550 / 550 Balance 2560 / 2560 -1540 / -1540 1930 / 1930 110 / 110 - Physical Exam Oriented: Normal Eyes: Normal Ear: Normal Nose: Normal Throat: Normal Respiratory: Generalized, Diminished Cardiovascular: Tachycardia. negative: S3, S4, Murmur : Normal Auscultation: Bowel Sounds: Normal Palpation: Normal Tenderness: Normal Skin: Tender, Wound (Rt heel ulcer 4x3 cm deep into the heel with exposed bone and deeper soft tissue , no bleeding . s/p excisional debridement ) Musculoskeletal: Normal, Motor Deficit (LOWER EXTREMITY PARALYSIS ), Sensory Deficit Psychiatric: Normal Mood Description: Calm Affect: Normal Speech Pattern: Clear, Appropriate - Laboratory and Diagnostics Result Diagrams: 02/15/19 05:26 02/15/19 08:35 Labs: 02/10/19 14:35 Blood Blood Culture - Final 02/10/19 14:33 Blood Blood Culture - Final 02/13/19 13:32 Foot - Right Gram Stain - Final 02/13/19 13:32 Foot - Right Wound Culture - Preliminary 02/10/19 16:04 Ankle - Right Gram Stain - Final 02/10/19 16:04 Ankle - Right Wound Culture - Final Methicillin Resis Staph Aureus 02/10/19 16:46 Urine,Catheterized Urine Culture - Final Escherichia Coli Laboratory WBC 5.4 X10^3/uL (3.6-10.0) 02/15/19 05:26 RBC 4.51 X10^6/uL (3.5-5.4) 02/15/19 05:26 Hgb 9.6 g/dL (12.0-16.0) L 02/15/19 05:26 Hct 31.4 % (36.0-47.0) L 02/15/19 05:26 MCV 69.7 fL (80.0-100.0) L 02/15/19 05:26 MCH 21.2 pg (27.0-34.0) L 02/15/19 05:26 MCHC 30.5 g/dL (33.0-35.0) L 02/15/19 05:26 RDW 23.9 % (11.6-16.5) H 02/15/19 05:26 Plt Count 87 X10^3/uL (150.0-450.0) L 02/15/19 05:26 Plt Count Comment Decreased (ADEQUATE) A 02/15/19 05:26 MPV 9.4 fL (7.4-11.0) 02/15/19 05:26 Neut % (Auto) 60.5 % (42.0-75.0) 02/15/19 05:26 Lymph % (Auto) 31.7 % (21.0-51.0) 02/15/19 05:26 [place] % (Auto) 7.1 % (0.0-13.0) 02/15/19 05:26 Eos % (Auto) 0.0 % (0.9-2.9) L 02/15/19 05:26 Baso % (Auto) 0.7 % (0.2-1.0) 02/15/19 05:26 Neut # (Auto) 3.3 x10^3/uL (2.2-4.8) 02/15/19 05:26 Lymph # (Auto) 1.7 X10^3/uL (1.3-2.9) 02/15/19 05:26 [place] # (Auto) 0.4 x10^3/uL (0.3-0.8) 02/15/19 05:26 Eos # (Auto) 0.0 x10^3/uL (0.0-0.2) 02/15/19 05:26 Baso # (Auto) 0.0 X10^3/uL (0.0-0.1) 02/15/19 05:26 Absolute Nucleated RBC 0.0 /100WBC 02/15/19 05:26 Plt Clumps, EDTA Rare 02/15/19 05:26 Plt Morphology Comment Normal (NORMAL) 02/15/19 05:26 RBC Morphology Abnormal (NORMAL) A 02/15/19 05:26 Hypochromasia 2+ A 02/15/19 05:26 Anisocytosis 2+ A 02/15/19 05:26 Microcytosis 1+ A 02/15/19 05:26 Tear Drop Cells Present 02/11/19 05:19 Ovalocytes Present 02/12/19 05:41 Sodium 146 mmol/L (136-145) H 02/15/19 05:26 Corrected Sodium TNP 02/15/19 05:26 Potassium 3.8 mmol/L (3.5-5.1) 02/15/19 08:35 Chloride 115 mmol/L (98-107) H* 02/15/19 05:26 Carbon Dioxide 17.5 mmol/L (21-32) L 02/15/19 05:26 BUN 12 mg/dL (7-18) 02/15/19 05:26 Creatinine 0.78 mg/dL (0.55-1.02) 02/15/19 05:26 Est GFR (MDRD) Af Amer > 60 (>60) 02/15/19 05:26 Est GFR (MDRD) Non-Af > 60 (>60) 02/15/19 05:26 Glucose 83 mg/dL (65-99) 02/15/19 05:26 Calcium 7.3 mg/dL (8.5-10.1) L 02/15/19 05:26 Corrected Calcium 8.4 mg/dL (8.5-10.1) L 02/15/19 05:26 Magnesium 2.0 mg/dL (1.7-2.9) 02/14/19 06:04 Iron 87 ug/dL (50-175) 02/13/19 07:08 Transferrin 235 mg/dL (202-364) 02/13/19 07:08 Ferritin 4 ng/mL (8-252) L 02/13/19 07:08 Total Bilirubin 0.30 mg/dL (0.2-1.0) 02/15/19 05:26 AST 16 Units/L (15-37) 02/15/19 05:26 ALT 31 Units/L (12-78) 02/15/19 05:26 Alkaline Phosphatase 119 Units/L (46-116) H 02/15/19 05:26 C-Reactive Protein 13.70 mg/L (0-3.0) H 02/10/19 14:33 Total Protein 5.5 g/dL (6.4-8.2) L 02/15/19 05:26 Albumin 2.6 g/dL (3.4-5.0) L 02/15/19 05:26 Globulin 2.9 g/dL (2.5-4.5) 02/15/19 05:26 Albumin/Globulin Ratio 0.9 Ratio (1.1-2.1) L 02/15/19 05:26 Vitamin B12 188 pg/mL (193-986) L 02/13/19 07:08 Folate 16.8 ng/mL (>8.6) 02/13/19 07:08 Specimen Type Catherized urine 02/10/19 23:15 Urine Color Yellow (YELLOW) 02/10/19 23:15 Urine Appearance Mucoid (CLEAR) 02/10/19 23:15 Urine pH 5.0 (5.0 - 8.0) 02/10/19 23:15 Ur Specific [place] 1.015 (1.000-1.030) 02/10/19 23:15 Urine Protein 1+ (NEGATIVE) 02/10/19 23:15 Urine Glucose (UA) Negative (NEGATIVE) 02/10/19 23:15 Urine Ketones Negative (NEGATIVE) 02/10/19 23:15 Urine Occult Blood 2+ (NEGATIVE) 02/10/19 23:15 Urine Nitrite Positive (NEGATIVE) 02/10/19 23:15 Urine Bilirubin Negative (NEGATIVE) 02/10/19 23:15 Urine Urobilinogen Normal (NORMAL) 02/10/19 23:15 Ur Leukocyte Esterase 3+ (NEGATIVE) 02/10/19 23:15 Urine RBC 10-20 /HPF (NONE SEEN) 02/10/19 23:15 Urine WBC Tntc /HPF (NONE SEEN) 02/10/19 23:15 Ur Squamous Epith Cells Rare /HPF (NEGATIVE) 02/10/19 23:15 Amorphous Sediment 1+ /HPF (NEGATIVE) 02/10/19 23:15 Urine Bacteria 3+ /HPF (NEGATIVE) 02/10/19 23:15 Urine Mucus Numerous /HPF (NEGATIVE) 02/10/19 23:15 Ur Culture Indicated? Yes/culture set up 02/10/19 23:15 Vancomycin Trough 29.5 ug/mL (15-20) H* 02/13/19 22:18 Random Vancomycin 20.0 ug/mL 02/14/19 06:04 Tissue Pathology To follow 02/13/19 13:37 Blood Type O NEGATIVE 02/11/19 06:51 Antibody Screen Positive 02/11/19 06:51 Antibody Identification Anti-C Anti-D Anti-V 02/11/19 06:51 Antibody Identification Anti-C Anti-D Anti-V 02/11/19 06:51 Antibody Identification Anti-C Anti-D Anti-V 02/11/19 06:51 Antibody Identification Anti-C Anti-D Anti-V 02/11/19 06:51 Antibody Identification Anti-C Anti-D Anti-V 02/11/19 06:51 Crossmatch See Detail 02/11/19 06:51 - Plan (1) Infected stasis ulcer of right lower extremity Status: Acute Plan: WOUND CARE, DEBRIDEMENT OF WOUND TODAY, IV ANTIBIOITCS, CONTINUE TO MONITOR (2) Anemia Status: Acute Qualifiers: Anemia type: iron deficiency Iron deficiency anemia type: chronic blood loss Qualified Code(s): D50.0 - Iron deficiency anemia secondary to blood loss (chronic) Plan: MONITOR H&H (3) Urinary tract infection Status: Acute Qualifiers: Urinary tract infection type: acute cystitis Hematuria presence: without hematuria Qualified Code(s): N30.00 - Acute cystitis without hematuria Plan: IV ANTIBIOTICS, IV FLUIDS, CONTINUE TO MONITOR (4) Protein deficiency Status: Acute Plan: PROCAL AND ALBUMIN, CONTINUE TO MONITOR
[2019-02-15 21:30] LABS: CREATININE 0.79 mg/dL (0.55-1.02)
[2019-02-15 21:32] LABS: VANCOMYCIN,TROUGH 20.4 ug/mL (15-20)
[2019-02-15] MEDS: TOPAMAX PO SCH (22:07)
[2019-02-15] MEDS: SEROquel TAB 100 MG PO SCH (22:07)
[2019-02-16] MEDS: NS 1000 ML 1,000 ML IV SCH ×6 (03:00→19:20)
[2019-02-16 05:25] LABS: BASOPHILS % (AUTO) 0.7 % (0.2-1.0); EOSINOPHILS % (AUTO) 0.2 % (0.9-2.9); HEMATOCRIT 27.6 % (36.0-47.0); HEMOGLOBIN 8.6 g/dL (12.0-16.0); LYMPHOCYTES # (AUTO) 1.5 X10^3/uL (1.3-2.9); MEAN CORPUSCULAR HEMOGLOBIN 21.6 pg (27.0-34.0); MEAN CORPUSCULAR HGB CONC 31.2 g/dL (33.0-35.0); MEAN CORPUSCULAR VOLUME 69.2 fL (80.0-100.0); MEAN PLATELET VOLUME 9.6 fL (7.4-11.0); MONOCYTES # (AUTO) 0.4 x10^3/uL (0.3-0.8); MONOCYTES % (AUTO) 7.6 % (0.0-13.0); NEUTROPHILS % (AUTO) 61.5 % (42.0-75.0); PLATELET COUNT 152 X10^3/uL (150.0-450.0); RED CELL DISTRIBUTION WIDTH 23.8 % (11.6-16.5); WHITE BLOOD COUNT 4.9 X10^3/uL (3.6-10.0)
[2019-02-16 05:45] LABS: ALANINE AMINOTRANSFERASE 19 Units/L (12-78); ALBUMIN 2.6 g/dL (3.4-5.0); ALKALINE PHOSPHATASE 112 Units/L (46-116); ASPARTATE AMINO TRANSFERASE 8 Units/L (15-37); BLOOD UREA NITROGEN 13 mg/dL (7-18); CALCIUM 7.8 mg/dL (8.5-10.1); CARBON DIOXIDE 20.5 mmol/L (21-32); COR CA(FOR HYPOALB) 8.9 mg/dL (8.5-10.1); CREATININE 0.73 mg/dL (0.55-1.02); SODIUM 145 mmol/L (136-145); TOTAL PROTEIN 5.5 g/dL (6.4-8.2); eGFR NON BLACK RACES > 60 (>60)
[2019-02-16] MEDS: ZOSYN VIAL 3.375 GRAMS 3.375 G in NS 100 ML IV + SPIKE MINIBAG* 100 ML IV SCH ×3 (05:51→21:30)
[2019-02-16 05:52] LABS: CHLORIDE 116 mmol/L (98-107)
[2019-02-16 05:53] LABS: ANISOCYTOSIS 2+; HYPOCHROMASIA 2+; MICROCYTOSIS 2+; PLATELET MORPHOLOGY COMMENT NORMAL (NORMAL)
[2019-02-16] MEDS: VISTARIL PO SCH (08:48)
[2019-02-16] MEDS: VSL#3 PO SCH ×2 (08:48→21:34)
[2019-02-16] MEDS: PROTONIX TAB 40 MG PO SCH (08:48)
[2019-02-16] MEDS: TOPAMAX TAB 100 MG PO SCH (08:48)
[2019-02-16] MEDS: NEURONTIN CAP 300 MG PO SCH ×2 (08:48→21:33)
[2019-02-16] MEDS: FOLIC ACID TAB 1 MG PO SCH (08:49)
[2019-02-16] MEDS: ELIQUIS PO SCH ×2 (08:49→21:33)
[2019-02-16] MEDS: SYNTHROID 125 mcg TAB PO SCH (08:49)
[2019-02-16] MEDS: ALBUMIN HUMAN 25%- 100 ML 100 ML IV SCH (08:50)
[2019-02-16] MEDS: PEPCID 20 MG IV PREMIX* 20 MG/50 ML BAG IV SCH ×2 (08:50→21:41)
[2019-02-16] MEDS: DIFLUNISAL 500 MG PO SCH (10:28)
[2019-02-16] MEDS: TAPENTADOL 100 MG PO SCH ×2 (10:29→21:37)
[2019-02-16] MEDS: TAPENTADOL 50 MG PO SCH ×2 (10:30→21:37)
[2019-02-16] MEDS: XANAX PO PRN (11:21)
[2019-02-16] MEDS: VANCOMYCIN HCL 1 GM VIAL 1 G in NS 250 ML IV 250 ML IV SCH ×3 (15:25→22:03)
--- NOTE | 2019-02-16 21:13 | PCM.PROG ---
Progress Note - Progress Note for Day of Date of Exam: 02/15/19 - Subjective Subjective: WAS ADMITTED FOR AN INFECTED RIGHT FOOT ULCER AND A URINARY TRACT INFECTION.. TOOK HER TO THE OR YESTEN 02/13 FOR DEBRIDEMENT OF WOUND. TODAY, SHE IS ALERT AND ORIENTED, LYING IN BED ON MORNING ROUNDS. RIGHT FOOT IS NOTED WITH A DRESSING. DRESSING IS DRY AND INTACT AND IS MONITORING WOUND. SHE ALSO HAS WOUNDS NOTED TO THE LEFT LATERAL HIP, RIGHT LOWER MEDIAL BUTTOCK, LEFT POSTERIOR THIGH, AND A STOMA TO THE LEFT UPPER QUADRANT. SEE WOUND ASSESSMENT FOR FURTHER DESCRIPTIONS. SHE CONTINUES WITH A HEADACHE TODAY. NICOLAS CATHETER IS NOTED WITH CLEAR URINE. HER VITALS THIS MORNING ARE: 97.8-96-20-100%-131/76. LABS WERE OBTAINED. ABNORMAL LAB VALUES INCLUDE THE F OLLOWING: HGB 9.6, HCT 31.4, PLT COUNT 87, SODIUM 146, CHLORIDE 115, CALCIUM 73, ALK PHOS 119, TOTAL PROTEIN 5.5, ALUBMIN 2.6. WOUND CULTURES REPORT GROWTH OF MRSA AND STAPH AURICULARIS. URINE CULTURE REPORTS GROWTH OF E.COLI. SHE IS CURRENTLY RECEIVING IV VANCOMYCIN AND IV ZOSYN. WE WILL CONTINUE WITH CURRENT PLAN OF CARE TODAY. OTHERWISE, WE PLAN TO FOLLOW UP WITH AM LABS AND CONTINUE TO MONITOR. - Past Medical Family Social History Past Med/Fam/Surg Hx: No changes since H&P Allergies: Allergies Latex, Natural Rubber Allergy (Verified 01/07/18 17:19) - Review of Systems ROS: No change since H&P - Vital Signs and I&O's Vital Signs: Temperature 98.2 F Pulse Rate [Left Brachial] 104 Pulse Rate [Radial] 104 Pulse Rate 112 Respiratory Rate 22 Blood Pressure [Left Arm] 122/67 Blood Pressure [Right Arm] 113/60 Blood Pressure 132/62 O2 Sat by Pulse Oximetry 99 Intake and Output: Intake & Output 02/14/19 02/15/19 02/16/19 02/17/19 11:59 11:59 11:59 11:59 Intake Total 2860 / 2860 3080 / 3080 3080 / 3080 1400 / 1400 Output Total 4400 / 4400 1150 / 1150 1750 / 1750 2250 / 2250 Balance -1540 / -1540 1930 / 1930 1330 / 1330 -850 / -850 - Physical Exam Oriented: Normal Eyes: Normal Ear: Normal Nose: Normal Throat: Normal Respiratory: Generalized, Diminished Cardiovascular: Tachycardia. negative: S3, S4, Murmur : Normal Auscultation: Bowel Sounds: Normal Tenderness: Normal Skin: Tender, Wound (Rt heel ulcer 4x3 cm deep into the heel with exposed bone and deeper soft tissue , no bleeding . s/p excisional debridement ) Musculoskeletal: Normal, Motor Deficit (LOWER EXTREMITY PARALYSIS ), Sensory Deficit Psychiatric: Normal Mood Description: Calm Affect: Normal Speech Pattern: Clear, Appropriate - Laboratory and Diagnostics Result Diagrams: 02/16/19 05:00 02/16/19 05:00 Labs: 02/13/19 13:32 Foot - Right Gram Stain - Final 02/13/19 13:32 Foot - Right Wound Culture - Final Methicillin Resis Staph Aureus Staph Auricularis 02/10/19 14:35 Blood Blood Culture - Final 02/10/19 14:33 Blood Blood Culture - Final 02/10/19 16:04 Ankle - Right Gram Stain - Final 02/10/19 16:04 Ankle - Right Wound Culture - Final Methicillin Resis Staph Aureus 02/10/19 16:46 Urine,Catheterized Urine Culture - Final Escherichia Coli Laboratory WBC 4.9 X10^3/uL (3.6-10.0) 02/16/19 05:00 RBC 4.00 X10^6/uL (3.5-5.4) 02/16/19 05:00 Hgb 8.6 g/dL (12.0-16.0) L 02/16/19 05:00 Hct 27.6 % (36.0-47.0) L 02/16/19 05:00 MCV 69.2 fL (80.0-100.0) L 02/16/19 05:00 MCH 21.6 pg (27.0-34.0) L 02/16/19 05:00 MCHC 31.2 g/dL (33.0-35.0) L 02/16/19 05:00 RDW 23.8 % (11.6-16.5) H 02/16/19 05:00 Plt Count 152 X10^3/uL (150.0-450.0) 02/16/19 05:00 Plt Count Comment Adequate (ADEQUATE) 02/16/19 05:00 MPV 9.6 fL (7.4-11.0) 02/16/19 05:00 Neut % (Auto) 61.5 % (42.0-75.0) 02/16/19 05:00 Lymph % (Auto) 30.0 % (21.0-51.0) 02/16/19 05:00 [place] % (Auto) 7.6 % (0.0-13.0) 02/16/19 05:00 Eos % (Auto) 0.2 % (0.9-2.9) L 02/16/19 05:00 Baso % (Auto) 0.7 % (0.2-1.0) 02/16/19 05:00 Neut # (Auto) 3.0 x10^3/uL (2.2-4.8) 02/16/19 05:00 Lymph # (Auto) 1.5 X10^3/uL (1.3-2.9) 02/16/19 05:00 [place] # (Auto) 0.4 x10^3/uL (0.3-0.8) 02/16/19 05:00 Eos # (Auto) 0.0 x10^3/uL (0.0-0.2) 02/16/19 05:00 Baso # (Auto) 0.0 X10^3/uL (0.0-0.1) 02/16/19 05:00 Absolute Nucleated RBC 0.1 /100WBC 02/16/19 05:00 Plt Clumps, EDTA Rare 02/15/19 05:26 Plt Morphology Comment Normal (NORMAL) 02/16/19 05:00 RBC Morphology Abnormal (NORMAL) A 02/16/19 05:00 Hypochromasia 2+ A 02/16/19 05:00 Anisocytosis 2+ A 02/16/19 05:00 Microcytosis 2+ A 02/16/19 05:00 Tear Drop Cells Present 02/11/19 05:19 Ovalocytes Present 02/12/19 05:41 Sodium 145 mmol/L (136-145) 02/16/19 05:00 Corrected Sodium TNP 02/16/19 05:00 Potassium 3.9 mmol/L (3.5-5.1) 02/16/19 05:00 Chloride 116 mmol/L (98-107) H* 02/16/19 05:00 Carbon Dioxide 20.5 mmol/L (21-32) L 02/16/19 05:00 BUN 13 mg/dL (7-18) 02/16/19 05:00 Creatinine 0.73 mg/dL (0.55-1.02) 02/16/19 05:00 Est GFR (MDRD) Af Amer > 60 (>60) 02/16/19 05:00 Est GFR (MDRD) Non-Af > 60 (>60) 02/16/19 05:00 Glucose 87 mg/dL (65-99) 02/16/19 05:00 Calcium 7.8 mg/dL (8.5-10.1) L 02/16/19 05:00 Corrected Calcium 8.9 mg/dL (8.5-10.1) 02/16/19 05:00 Magnesium 2.0 mg/dL (1.7-2.9) 02/14/19 06:04 Iron 87 ug/dL (50-175) 02/13/19 07:08 Transferrin 235 mg/dL (202-364) 02/13/19 07:08 Ferritin 4 ng/mL (8-252) L 02/13/19 07:08 Total Bilirubin 0.30 mg/dL (0.2-1.0) 02/16/19 05:00 AST 8 Units/L (15-37) L 02/16/19 05:00 ALT 19 Units/L (12-78) 02/16/19 05:00 Alkaline Phosphatase 112 Units/L (46-116) 02/16/19 05:00 C-Reactive Protein 13.70 mg/L (0-3.0) H 02/10/19 14:33 Total Protein 5.5 g/dL (6.4-8.2) L 02/16/19 05:00 Albumin 2.6 g/dL (3.4-5.0) L 02/16/19 05:00 Globulin 2.9 g/dL (2.5-4.5) 02/16/19 05:00 Albumin/Globulin Ratio 0.9 Ratio (1.1-2.1) L 02/16/19 05:00 Vitamin B12 188 pg/mL (193-986) L 02/13/19 07:08 Folate 16.8 ng/mL (>8.6) 02/13/19 07:08 Specimen Type Catherized urine 02/10/19 23:15 Urine Color Yellow (YELLOW) 02/10/19 23:15 Urine Appearance Mucoid (CLEAR) 02/10/19 23:15 Urine pH 5.0 (5.0 - 8.0) 02/10/19 23:15 Ur Specific [place] 1.015 (1.000-1.030) 02/10/19 23:15 Urine Protein 1+ (NEGATIVE) 02/10/19 23:15 Urine Glucose (UA) Negative (NEGATIVE) 02/10/19 23:15 Urine Ketones Negative (NEGATIVE) 02/10/19 23:15 Urine Occult Blood 2+ (NEGATIVE) 02/10/19 23:15 Urine Nitrite Positive (NEGATIVE) 02/10/19 23:15 Urine Bilirubin Negative (NEGATIVE) 02/10/19 23:15 Urine Urobilinogen Normal (NORMAL) 02/10/19 23:15 Ur Leukocyte Esterase 3+ (NEGATIVE) 02/10/19 23:15 Urine RBC 10-20 /HPF (NONE SEEN) 02/10/19 23:15 Urine WBC Tntc /HPF (NONE SEEN) 02/10/19 23:15 Ur Squamous Epith Cells Rare /HPF (NEGATIVE) 02/10/19 23:15 Amorphous Sediment 1+ /HPF (NEGATIVE) 02/10/19 23:15 Urine Bacteria 3+ /HPF (NEGATIVE) 02/10/19 23:15 Urine Mucus Numerous /HPF (NEGATIVE) 02/10/19 23:15 Ur Culture Indicated? Yes/culture set up 02/10/19 23:15 Vancomycin Trough 20.4 ug/mL (15-20) H* 02/15/19 20:10 Random Vancomycin 15.5 ug/mL 02/16/19 05:00 Tissue Pathology To follow 02/13/19 13:37 Blood Type O NEGATIVE 02/11/19 06:51 Antibody Screen Positive 02/11/19 06:51 Antibody Identification Anti-C Anti-D Anti-V 02/11/19 06:51 Antibody Identification Anti-C Anti-D Anti-V 02/11/19 06:51 Antibody Identification Anti-C Anti-D Anti-V 02/11/19 06:51 Antibody Identification Anti-C Anti-D Anti-V 02/11/19 06:51 Antibody Identification Anti-C Anti-D Anti-V 02/11/19 06:51 Crossmatch See Detail 02/11/19 06:51 - Plan (1) Infected stasis ulcer of right lower extremity Status: Acute Plan: WOUND CARE, DEBRIDEMENT OF WOUND TODAY, IV ANTIBIOITCS, CONTINUE TO MONITOR (2) Anemia Status: Acute Qualifiers: Anemia type: iron deficiency Iron deficiency anemia type: chronic blood loss Qualified Code(s): D50.0 - Iron deficiency anemia secondary to blood loss (chronic) Plan: MONITOR H&H (3) Urinary tract infection Status: Acute Qualifiers: Urinary tract infection type: acute cystitis Hematuria presence: without hematuria Qualified Code(s): N30.00 - Acute cystitis without hematuria Plan: IV ANTIBIOTICS, IV FLUIDS, CONTINUE TO MONITOR (4) Protein deficiency Status: Acute Plan: PROCAL AND ALBUMIN, CONTINUE TO MONITOR
[2019-02-16] MEDS: TOPAMAX PO SCH (21:34)
[2019-02-16] MEDS: SEROquel TAB 100 MG PO SCH (21:34)
[2019-02-16] MEDS: ZANAFLEX PO PRN (21:41)
[2019-02-17] MEDS: PROCALAMINE 3 % 1,000 ML IV SCH (00:18)
[2019-02-17] MEDS ORDERED: VANCOMYCIN HCL 1 GM VIAL 1 G in D5W 250 ML IV 250 ML IV ONE (02:00)
[2019-02-17] MEDS ORDERED: VANCOMYCIN HCL 1 GM VIAL 1 G in NS 250 ML IV 250 ML IV ONE (02:00)
[2019-02-17] MEDS: NS 1000 ML 1,000 ML IV SCH ×2 (03:11→07:30)
[2019-02-17 04:05] VITALS: BP 99/57
[2019-02-17] MEDS: ZOSYN VIAL 3.375 GRAMS 3.375 G in NS 100 ML IV + SPIKE MINIBAG* 100 ML IV SCH (05:00)
[2019-02-17 06:34] LABS: BASOPHILS % (AUTO) 0.3 % (0.2-1.0); EOSINOPHILS % (AUTO) 0.1 % (0.9-2.9); HEMATOCRIT 27.7 % (36.0-47.0); HEMOGLOBIN 8.6 g/dL (12.0-16.0); LYMPHOCYTES # (AUTO) 1.3 X10^3/uL (1.3-2.9); MEAN CORPUSCULAR HEMOGLOBIN 21.6 pg (27.0-34.0); MEAN CORPUSCULAR HGB CONC 31.2 g/dL (33.0-35.0); MEAN CORPUSCULAR VOLUME 69.4 fL (80.0-100.0); MEAN PLATELET VOLUME 9.1 fL (7.4-11.0); MONOCYTES # (AUTO) 0.3 x10^3/uL (0.3-0.8); MONOCYTES % (AUTO) 6.4 % (0.0-13.0); NEUTROPHILS % (AUTO) 65.2 % (42.0-75.0); PLATELET COUNT 147 X10^3/uL (150.0-450.0); RED BLOOD COUNT 3.99 X10^6/uL (3.5-5.4); RED CELL DISTRIBUTION WIDTH 25.2 % (11.6-16.5); WHITE BLOOD COUNT 4.6 X10^3/uL (3.6-10.0)
[2019-02-17 06:55] LABS: ALANINE AMINOTRANSFERASE 17 Units/L (12-78); ALBUMIN 2.6 g/dL (3.4-5.0); ALKALINE PHOSPHATASE 108 Units/L (46-116); ASPARTATE AMINO TRANSFERASE 8 Units/L (15-37); BLOOD UREA NITROGEN 12 mg/dL (7-18); CALCIUM 8.1 mg/dL (8.5-10.1); CARBON DIOXIDE 20.1 mmol/L (21-32); COR CA(FOR HYPOALB) 9.2 mg/dL (8.5-10.1); COR NA(FOR HYPERGLY) 147 mmol/L (136-145); CREATININE 0.74 mg/dL (0.55-1.02); SODIUM 146 mmol/L (136-145); TOTAL PROTEIN 5.4 g/dL (6.4-8.2); eGFR NON BLACK RACES > 60 (>60)
[2019-02-17 06:59] LABS: CHLORIDE 116 mmol/L (98-107)
[2019-02-17 07:08] LABS: ANISOCYTOSIS 3+; HYPOCHROMASIA 2+; MICROCYTOSIS 1+; PLATELET MORPHOLOGY COMMENT NORMAL (NORMAL)
[2019-02-17] MEDS: FOLIC ACID TAB 1 MG PO SCH (08:36)
[2019-02-17] MEDS: ELIQUIS PO SCH (08:36)
[2019-02-17] MEDS: ALBUMIN HUMAN 25%- 100 ML 100 ML IV SCH (08:36)
[2019-02-17] MEDS: DIFLUNISAL 500 MG PO SCH (08:36)
[2019-02-17] MEDS: PEPCID 20 MG IV PREMIX* 20 MG/50 ML BAG IV SCH (08:37)
[2019-02-17] MEDS: PROTONIX TAB 40 MG PO SCH (08:37)
[2019-02-17] MEDS: NEURONTIN CAP 300 MG PO SCH (08:37)
[2019-02-17] MEDS: SYNTHROID 125 mcg TAB PO SCH (08:38)
[2019-02-17] MEDS: TAPENTADOL 50 MG PO SCH (08:38)
[2019-02-17] MEDS: TOPAMAX TAB 100 MG PO SCH (08:38)
[2019-02-17] MEDS: VISTARIL PO SCH (08:38)
[2019-02-17] MEDS: TAPENTADOL 100 MG PO SCH (08:38)
[2019-02-17] MEDS: VSL#3 PO SCH (08:38)
[2019-02-17] MEDS ORDERED: NS IRRIGATION 500 ML ONE (08:47)
[2019-02-17] MEDS ORDERED: VANCOMYCIN HCL 1 GM VIAL 1 G in NS 250 ML IV 250 ML IV SCH (16:00)
[2019-02-18] MEDS ORDERED: PHARMACY COMMENT IV NR (08:00)
== END 2019-02-17 13:25 | disposition home health service (06) | DRG 593 ==
LOC: ER 13:05 → MED/SURG 18:09
PROVIDERS: ADMIT Internal Medicine; ATTEND Internal Medicine
DX: N30.01 Acute cystitis with hematuria; G82.20 Paraplegia, unspecified; B96.29 Other Escherichia coli [E. coli] as the cause of diseases classified elsewhere; D50.0 Iron deficiency anemia secondary to blood loss (chronic); L89.892 Pressure ulcer of other site, stage 2; R79.82 Elevated C-reactive protein (CRP); L97.419 Non-pressure chronic ulcer of right heel and midfoot with unspecified severity; L89.613 Pressure ulcer of right heel, stage 3; Q05.9 Spina bifida, unspecified; R51 Headache; I83.214 Varicose veins of right lower extremity with both ulcer of heel and midfoot and inflammation; L08.89 Other specified local infections of the skin and subcutaneous tissue; L89.312 Pressure ulcer of right buttock, stage 2; L89.222 Pressure ulcer of left hip, stage 2; B95.62 Methicillin resistant Staphylococcus aureus infection as the cause of diseases classified elsewhere; Z97.8 Presence of other specified devices; E46 Unspecified protein-calorie malnutrition
CPT/HCPCS: 36415; 36430; 73630; 80053; 80202; 81001; 82565; 82607; 82728; 82746; 83540; 83735; 84132; 84443; 84466; 85025; 86140; 86850; 86870; 86880; 86885; 86900; 86901; 86905; 86906; 86922; 86970; 86971; 87040; 87070; 87075; 87077; 87086; 87088; 87186; 87205; 88304; 96365; 96372; 96374; 97110; 97163; 97166; 99284; A4216; A4222; B5200; J3490; P9016; P9047; Q0169; Q0177; S0028; J1885; J2175; J2250; J2405; J2543; J2550; J3370; J7030; J7050; J7060; S0119; S0181

== ENCOUNTER 2023-05-27 15:37 | Inpatient (IN) ==
[2023-05-27 17:07] VITALS: BMI 43.0
[2023-05-27] MEDS ORDERED: NovoLIN R (or HumuLIN R) SUBCUT PRN (17:48)
[2023-05-27] MEDS ORDERED: CONSULT PHARMACY - POTASSIUM & MAGNESIUM XX SCH (18:00)
[2023-05-27] MEDS: NS 1,000 ML IV 1,000 ML IV SCH (18:28)
[2023-05-27 18:35] LABS: EOSINOPHILS % (AUTO) 0.3 % (0.9-2.9); WHITE BLOOD COUNT 5.1 X10^3/uL (3.6-10.0)
[2023-05-27] MEDS: CIPRO IV 400 MG PREMIX* 400 MG/200 ML IV.SOLN. IV SCH ×2 (18:38→21:03)
[2023-05-27 18:44] LABS: CHLORIDE 109 mmol/L (98-107); TOTAL PROTEIN 5.2 g/dL (6.4-8.2); eGFR NON BLACK RACES > 60 (>60)
[2023-05-27 19:07] LABS: BASOPHILS % (AUTO) 0.6 % (0.2-1.0); LYMPHOCYTES # (AUTO) 1.7 X10^3/uL (1.3-2.9); LYMPHOCYTES % (AUTO) 32.7 % (21.0-51.0); MEAN CORPUSCULAR HEMOGLOBIN 16.8 pg (27.0-34.0); MEAN CORPUSCULAR HGB CONC 27.8 g/dL (33.0-35.0); MEAN CORPUSCULAR VOLUME 60.3 fL (80.0-100.0); MONOCYTES # (AUTO) 0.2 x10^3/uL (0.3-0.8); MONOCYTES % (AUTO) 3.8 % (0.0-13.0); NEUTROPHILS # (AUTO) 3.2 x10^3/uL (2.2-4.8); NEUTROPHILS % (AUTO) 62.6 % (42.0-75.0); PLATELET COUNT 278 X10^3/uL (150.0-450.0); RED BLOOD COUNT 3.26 X10^6/uL (3.5-5.4); RED CELL DISTRIBUTION WIDTH 23.7 % (11.6-16.5)
[2023-05-27 19:21] LABS: ALANINE AMINOTRANSFERASE 7 Units/L (12-78); ALBUMIN 2.2 g/dL (3.4-5.0); ALKALINE PHOSPHATASE 119 Units/L (46-116); ASPARTATE AMINO TRANSFERASE 6 Units/L (15-37); BLOOD UREA NITROGEN 7 mg/dL (7-18); CALCIUM 7.4 mg/dL (8.5-10.1); CARBON DIOXIDE 27.4 mmol/L (21-32); COR CA(FOR HYPOALB) 8.8 mg/dL (8.5-10.1); CREATININE 0.49 mg/dL (0.55-1.02); GLUCOSE 96 mg/dL (65-99); POTASSIUM 3.4 mmol/L (3.5-5.1); SODIUM 143 mmol/L (136-145)
[2023-05-27 19:26] LABS: HEMATOCRIT 19.7 % (36.0-47.0); HEMOGLOBIN 5.5 g/dL (12.0-16.0)
[2023-05-27 19:46] LABS: ANISOCYTOSIS 2+; HYPOCHROMASIA 3+; MICROCYTOSIS 2+; OVALOCYTES PRESENT; PLATELET MORPHOLOGY COMMENT NORMAL (NORMAL); POIKILOCYTOSIS 2+; SCHISTOCYTES PRESENT; TEAR DROP CELLS PRESENT
[2023-05-27] MEDS ORDERED: ZOFRAN ODT PO PRN (19:57)
[2023-05-27] MEDS ORDERED: TYLENOL 325 MG TAB PO ONE (20:03)
[2023-05-27] MEDS ORDERED: NS 500 ML IV 0 ML IV ONE (20:28)
[2023-05-27] MEDS: PEPCID 20 MG VIAL 20 MG in NS 50 ML IV 50 ML IV SCH ×2 (20:58→21:01)
[2023-05-27] MEDS ORDERED: KLOR-CON PO SCH (21:00)
[2023-05-27] MEDS: PHENERGAN INJ 25 MG IM PRN (21:00)
[2023-05-27] MEDS: PROTONIX INJ 40 MG VIAL IVP SCH (21:01)
[2023-05-27] MEDS: FORTAZ or TAZICEF VIAL INJ 1 G in NS 100 ML IV 100 ML IV SCH (21:09)
[2023-05-28] MEDS: MAGNESIUM SULFATE 1 GRAM/100 mL PREMIX 1 G/100 ML BAG IV SCH ×2 (03:52→05:00)
[2023-05-28] MEDS: MAG-OX TAB PO SCH ×2 (04:48→04:49)
[2023-05-28] MEDS: FORTAZ or TAZICEF VIAL INJ 1 G in NS 100 ML IV 100 ML IV SCH ×3 (05:20→22:10)
[2023-05-28 06:55] LABS: RED BLOOD COUNT 3.36 X10^6/uL (3.5-5.4)
[2023-05-28 07:01] LABS: BASOPHILS # (AUTO) 0.1 X10^3/uL (0.0-0.1); BASOPHILS % (AUTO) 1.6 % (0.2-1.0); EOSINOPHILS % (AUTO) 0.5 % (0.9-2.9); HEMATOCRIT 20.4 % (36.0-47.0); LYMPHOCYTES # (AUTO) 2.3 X10^3/uL (1.3-2.9); LYMPHOCYTES % (AUTO) 38.5 % (21.0-51.0); MEAN CORPUSCULAR HEMOGLOBIN 16.8 pg (27.0-34.0); MEAN CORPUSCULAR HGB CONC 27.7 g/dL (33.0-35.0); MEAN CORPUSCULAR VOLUME 60.6 fL (80.0-100.0); MEAN PLATELET VOLUME 9.9 fL (7.4-11.0); MONOCYTES # (AUTO) 0.3 x10^3/uL (0.3-0.8); MONOCYTES % (AUTO) 5.7 % (0.0-13.0); NEUTROPHILS # (AUTO) 3.2 x10^3/uL (2.2-4.8); NEUTROPHILS % (AUTO) 53.7 % (42.0-75.0); PLATELET COUNT 308 X10^3/uL (150.0-450.0); RED CELL DISTRIBUTION WIDTH 23.9 % (11.6-16.5)
[2023-05-28 07:04] LABS: ALANINE AMINOTRANSFERASE 8 Units/L (12-78); ALBUMIN 2.3 g/dL (3.4-5.0); ALKALINE PHOSPHATASE 117 Units/L (46-116); ASPARTATE AMINO TRANSFERASE 8 Units/L (15-37); BLOOD UREA NITROGEN 7 mg/dL (7-18); CALCIUM 7.3 mg/dL (8.5-10.1); CARBON DIOXIDE 26.6 mmol/L (21-32); CHLORIDE 108 mmol/L (98-107); COR CA(FOR HYPOALB) 8.7 mg/dL (8.5-10.1); CREATININE 0.52 mg/dL (0.55-1.02); GLUCOSE 81 mg/dL (65-99); POTASSIUM 3.4 mmol/L (3.5-5.1); SODIUM 142 mmol/L (136-145); TOTAL PROTEIN 5.7 g/dL (6.4-8.2); eGFR NON BLACK RACES > 60 (>60)
[2023-05-28 07:07] LABS: HEMOGLOBIN 5.6 g/dL (12.0-16.0)
[2023-05-28 07:27] LABS: PLATELET MORPHOLOGY COMMENT NORMAL (NORMAL)
[2023-05-28 07:29] LABS: ANISOCYTOSIS 2+; HYPOCHROMASIA 3+; MICROCYTOSIS 2+; POIKILOCYTOSIS 2+
[2023-05-28 07:30] LABS: OVALOCYTES SLIGHT; SCHISTOCYTES SLIGHT; TARGET CELLS SLIGHT; TEAR DROP CELLS 1+
[2023-05-28] MEDS: PEPCID 20 MG VIAL 20 MG in NS 50 ML IV 50 ML IV SCH ×2 (08:06→21:46)
[2023-05-28] MEDS: CIPRO IV 400 MG PREMIX* 400 MG/200 ML IV.SOLN. IV SCH ×2 (08:06→22:04)
[2023-05-28] MEDS: PROTONIX INJ 40 MG VIAL IVP SCH ×2 (08:06→21:49)
[2023-05-28] MEDS: PHENERGAN INJ 25 MG IM PRN ×2 (08:06→21:49)
[2023-05-28] MEDS: NS 1,000 ML IV 1,000 ML IV SCH ×2 (08:13→18:39)
[2023-05-28] MEDS ORDERED: VISTARIL PO PRN (09:03)
[2023-05-28] MEDS ORDERED: DILAUDID INJ IVP ONE (10:15)
[2023-05-28] MEDS ORDERED: DILAUDID INJ ONE (10:18)
[2023-05-28] MEDS: BUSPAR PO SCH ×2 (10:49→22:11)
[2023-05-28] MEDS: WELLBUTRIN XL 300 MG (DAILY) PO SCH (10:49)
[2023-05-28] MEDS: NEURONTIN CAP 300 MG PO SCH ×2 (10:50→21:50)
[2023-05-28] MEDS: TAPENTADOL 50 MG PO SCH ×2 (11:17→22:00)
[2023-05-28] MEDS: DIFLUNISAL 500 MG PO SCH (11:18)
[2023-05-28] MEDS: PATIENT'S HOME MEDICATION PO SCH ×2 (11:18→22:01)
--- NOTE | 2023-05-28 11:59 | DR.UPDATE ---
H&P Update Prescription drug monitoring program results: PDMP reviewed with concerns identified H&P Reviewed: Yes Any changes to H&P?: Yes Changes noted:: WAS A DIRECT ADMISSION FOR TREATMENT OF SEPSIS, NON- HEALING DECUBITUS ULCERS OF THE RIGHT BUTTOCK/HIP, AND ANEMIA. ON ADMISSION TO THE HOSPITAL, HER VITALS WERE: 99.4-106-20-98%-146/66. LABS WERE OBTAINED. WBC 5.1, RBC 3.26, HGB 5.5, HCT 19.7, PLT COUNT 278, SODIUM 143, POTASSIUM 3.4, CHLORIDE 109, BUN 7, CREATININE 0.49, GLUCOSE 96, CALCIUM 7.4, MAGNESIUM 1.7, AST 6, ALT 7, ALK PHOS 119, TOTAL PROTEIN 5.2, ALBUMIN 2.2, VITAMIN B12 160, FOLATE 5.9, IRON 10. BLOOD AND WOUND CULTURES WERE SET UP. SHE WAS STARTED ON NORMAL SALINE AT 75 ML/HR, CIPRO 400MG IV Q12H, FORTAZ 1G IV Q8H, PROTONIX 40MG IV BID, PHENERGAN 25MG IM Q6H PRN, ZOFRAN 4MG PO Q8H PRN, PEPCID 20MG IV Q12H. HER HOME MEDICTATONS OF BUPROPION, BUSPIRONE, NEURONTIN, VISTARIL, SEROQUEL, DESYREL, NUCYNTA, AND DIFLUNISAL. WE WILL CONSULT , GENERAL SURGEON, FOR POSSIBLE DEBRIDEMENT OF WOUNDS. WE WILL TRANSFUSE TWO UNITS OF PACKED RED BLOOD CELLS WHEN THEY ARE AVAILABLE. OTHERWISE, WE WILL FOLLOW-UP WITH AM LABS AND CONTINUE TO MONITOR. TIME SPENT ON CLINICAL ASSESSMENT, REVIEWING LABS AND IMAGING, DECISION MAKING, AND DOCUMENTATION GREATER THAN 75 MINUTES. Patient was examined?: Yes Vital Signs: Temp Pulse Resp BP Pulse Ox O2 Del Method 05/28/23 11:49 99.2 F 105 H 18 121/58 98 Room Air 05/28/23 10:52 22 05/28/23 08:00 99.0 F 99 H 18 110/53 100 Room Air 05/28/23 07:00 Room Air 05/28/23 04:00 98.3 F 97 H 20 108/61 99 05/28/23 00:00 98.5 F 91 H 20 99/60 96 Room Air 05/27/23 19:00 Room Air 05/27/23 20:00 98.5 F 94 H 18 109/70 100 Room Air 05/27/23 16:20 Room Air 05/27/23 16:20 99.4 F 106 H 20 146/66 98 Room Air
[2023-05-28] MEDS: MORPHINE SULFATE INJ 2 MG INJ IVP PRN (17:26)
[2023-05-28] MEDS: DESYREL PO SCH (21:51)
[2023-05-29] MEDS: FORTAZ or TAZICEF VIAL INJ 1 G in NS 100 ML IV 100 ML IV SCH ×3 (05:50→21:42)
[2023-05-29 06:37] LABS: BILIRUBIN,URINE NEGATIVE (NEGATIVE); BLOOD/HEMOGLOBIN,URINE 4+ (NEGATIVE); GLUCOSE, URINE NEGATIVE (NEGATIVE); KETONES,URINE NEGATIVE (NEGATIVE); LEUKOCYTE ESTERASE ,URINE 3+ (NEGATIVE); NITRITES,URINE NEGATIVE (NEGATIVE); PROTEIN,URINE 3+ (NEGATIVE); UROBILINOGEN,URINE NORMAL (NORMAL)
[2023-05-29 06:45] LABS: BASOPHILS % (AUTO) 0.8 % (0.2-1.0); EOSINOPHILS % (AUTO) 0.4 % (0.9-2.9); LYMPHOCYTES # (AUTO) 1.5 X10^3/uL (1.3-2.9); LYMPHOCYTES % (AUTO) 38.3 % (21.0-51.0); MEAN CORPUSCULAR HEMOGLOBIN 16.8 pg (27.0-34.0); MEAN CORPUSCULAR HGB CONC 27.8 g/dL (33.0-35.0); MEAN CORPUSCULAR VOLUME 60.3 fL (80.0-100.0); MEAN PLATELET VOLUME 8.9 fL (7.4-11.0); MONOCYTES # (AUTO) 0.2 x10^3/uL (0.3-0.8); MONOCYTES % (AUTO) 5.5 % (0.0-13.0); NEUTROPHILS # (AUTO) 2.1 x10^3/uL (2.2-4.8); PLATELET COUNT 233 X10^3/uL (150.0-450.0); RED BLOOD COUNT 2.52 X10^6/uL (3.5-5.4); RED CELL DISTRIBUTION WIDTH 24.1 % (11.6-16.5); WHITE BLOOD COUNT 3.9 X10^3/uL (3.6-10.0)
[2023-05-29 06:51] LABS: HEMATOCRIT 15.2 % (36.0-47.0); HEMOGLOBIN 4.2 g/dL (12.0-16.0)
[2023-05-29 06:52] LABS: APPEARANCE,URINE HAZY (CLEAR); BACTERIA,URINE 1+ /HPF (NEGATIVE); COLOR,URINE YELLOW (YELLOW); RBC,URINE 0-2 /HPF (0-3); SQUAMOUS EPITHELIAL CELL,UR RARE /HPF (NEGATIVE)
[2023-05-29 06:54] LABS: ALANINE AMINOTRANSFERASE < 6 Units/L (12-78); ALBUMIN 1.8 g/dL (3.4-5.0); ALKALINE PHOSPHATASE 94 Units/L (46-116); ASPARTATE AMINO TRANSFERASE 8 Units/L (15-37); BLOOD UREA NITROGEN 6 mg/dL (7-18); CARBON DIOXIDE 24.2 mmol/L (21-32); CHLORIDE 112 mmol/L (98-107); COR CA(FOR HYPOALB) 8.8 mg/dL (8.5-10.1); CREATININE 0.52 mg/dL (0.55-1.02); GLUCOSE 99 mg/dL (65-99); POTASSIUM 3.3 mmol/L (3.5-5.1); SODIUM 144 mmol/L (136-145); TOTAL PROTEIN 4.8 g/dL (6.4-8.2); eGFR NON BLACK RACES > 60 (>60)
[2023-05-29 08:55] LABS: ANISOCYTOSIS 3+; HYPOCHROMASIA 3+; MICROCYTOSIS 2+; OVALOCYTES 1+; PLATELET MORPHOLOGY COMMENT NORMAL (NORMAL); STOMATOCYTES SLIGHT; TEAR DROP CELLS SLIGHT
[2023-05-29] MEDS ORDERED: TYLENOL 325 MG TAB PO ONE (09:22)
[2023-05-29] MEDS: NEURONTIN CAP 300 MG PO SCH ×2 (09:28→21:42)
[2023-05-29] MEDS: BUSPAR PO SCH ×2 (09:28→21:43)
[2023-05-29] MEDS: PEPCID 20 MG VIAL 20 MG in NS 50 ML IV 50 ML IV SCH ×2 (09:29→21:41)
[2023-05-29] MEDS: WELLBUTRIN XL 300 MG (DAILY) PO SCH (09:29)
[2023-05-29] MEDS: CIPRO IV 400 MG PREMIX* 400 MG/200 ML IV.SOLN. IV SCH ×2 (09:29→21:41)
[2023-05-29] MEDS: BENADRYL INJ 50 MG VIAL ONE ×2 (09:30→09:39)
[2023-05-29] MEDS: PROTONIX INJ 40 MG VIAL IVP SCH ×2 (09:37→21:42)
[2023-05-29] MEDS: PATIENT'S HOME MEDICATION PO SCH ×2 (09:37→22:11)
[2023-05-29] MEDS: TAPENTADOL 50 MG PO SCH ×2 (09:37→21:52)
[2023-05-29] MEDS: DIFLUNISAL 500 MG PO SCH (09:37)
[2023-05-29] MEDS: BENADRYL INJ 50 MG VIAL IM ONE ×2 (09:38→09:39)
[2023-05-29] MEDS: NS 1,000 ML IV 1,000 ML IV SCH ×3 (09:40→23:32)
[2023-05-29] MEDS: PHENERGAN INJ 25 MG IM PRN (10:03)
[2023-05-29] MEDS: MORPHINE SULFATE INJ 2 MG INJ IVP PRN ×3 (10:03→23:31)
--- NOTE | 2023-05-29 14:08 | PCM.PROG ---
Progress Note - Progress Note for Day of Date of Exam: 05/29/23 - Subjective Subjective: IS CURRENTLY INPATIENT STATUS FOR TREATMENT OF SEPSIS, NON- HEALING ULCERS OF THE RIGHT BUTTOCK/HIP AND THIGH, AND ANEMIA. HER PMH INCLUDES: LOWER EXTREMITY PARALYSIS, GERD, HIATAL HERNIA, CONSTIPATION, CHRONIC DIARRHEA, CHRONIC UTIs, ENDOMETRIOSIS, ARHTRITIS, CHRONIC LOW BACK PAIN, HYPOTHYROIDISM, ANEMIA, ANXIETY, DEPRESSION, BIPOLAR DISORDER, AND CHOLECYSTECTOMY. SHE IS STATUS POST DEBRIDEMENT OF WOUNDS TO THE RIGHT UPPER BUTTOCK/HIP AND THIGH. TODAY, SHE IS ALERT AND ORIENTED, LYING IN BED UPON MORNING ROUDNS. SHE CONTINUE TO COMPLAIN OF GENERALIZED WEAKNESS TODAY. SHE ALSO COMPLAINS OF LOW BACK PAIN. ON EXAMINATION, SHE IS TACHYCARDIC WITH HR 110-120 BPM. BILATERAL LUNGS ARE NOTED WITH DIMINISHED LUNG SOUNDS THROUGHOUT. ABDOMEN IS ROUND, SOFT, AND NON- TENDER WITH NORMAL BOWEL SOUNDS NOTED IN ALL QUADRANTS. GOOD RANGE OF MOTION NOTED TO UPPER EXTREMITIES. ATROPHY OF MUSCLES NOTED TO LOWER EXTREMITIES. DRESSINGS NOTED TO ALL WOUNDS. HER VITALS THIS MORNING ARE: 98.6-116 -18-100%-112/52. LABS WERE OBTAINED. WBC 3.9, RBC 2.52, HGB 4.2, HCT 15.2, PLT COUNT 233, SODIUM 144, POTASSIUM 3.3, CHLORIDE 112, BUN 6, CREATININE 0.52, GLUCOSE 99, CALCIUM 7.0, MAGNESIUM 2.0, TOTAL BILI 0.10, AST 8, ALT <6, ALK PHOS 94, TOTAL PROTEIN 4.8, ALBUMIN 1.8. A URINALYSIS WAS OBTAINED YESTERDAY AND REVEALED: WBC TNTC, RBC 0-2, LEUKOCYTES 3+, BACTERIA 1+, BLOOD 4+. URINE CULTURE WAS SET UP. BLOOD AND WOUND CULTURES ARE ALSO PENDING. SHE IS CURRENTLY RECEIVING: NORMAL SALINE AT 75 ML/HR, CIPRO 400MG IV Q12H, FORTAZ 1G IV Q8H, PROTONIX 40MG IV BID, PHENERGAN 25MG IM Q6H PRN, ZOFRAN 4MG PO Q8H PRN, PEPCID 20MG IV Q12H. HER HOME MEDICTATONS OF BUPROPION, BUSPIRONE, NEURONTIN, VISTARIL, SEROQUEL, DESYREL, NUCYNTA, AND DIFLUNISAL. TWO UNITS OF BLOOD ARE READY TO BE TRANSFUSED. WE WILL TRANSFUSE THESE TODAY. WE WILL ALSO ORDER FOUR ADDITIONAL UNITS OF BLOOD. WILL CONTINUE TO MONITOR HER WOUNDS. OTHERWISE, WE PLAN TO FOLLOW UP WITH AM LABS AND CONTINUE TO MONITOR. TIME SPENT ON CLINICAL ASSESSMENT, REVIEWING LABS AND IMAGING, DECISION MAKING, AND DOCUMENTATION GREATER THAN 45 MINUTES. - Past Medical Family Social History Past Med/Fam/Surg Hx: No changes since H&P Allergies: Allergies latex Allergy (Unknown, Verified 05/27/23 17:43) Latex, Natural Rubber Allergy (Verified 05/27/23 17:43) - Review of Systems ROS: No change since H&P - Vital Signs and I&O's Vital Signs: Vital Signs Temperature 99.1 F Temperature 98.6 F Pulse Rate [Right Brachial] 113 Pulse Rate [Right Brachial] 116 Respiratory Rate 18 Respiratory Rate 20 Respiratory Rate 20 Respiratory Rate 20 Respiratory Rate 18 Blood Pressure [Right Arm] 99/51 Blood Pressure [Right Arm] 112/52 O2 Sat by Pulse Oximetry 98 O2 Sat by Pulse Oximetry 100 Intake and Output: Intake & Output 05/27/23 05/28/23 05/29/23 05/30/23 11:59 11:59 11:59 11:59 Intake Total 1710 / 1710 3073 / 3073 Output Total 1100 / 1100 350 / 350 Balance 610 / 610 2723 / 2723 - Physical Exam Oriented: Normal Eyes: Normal Ear: Normal Nose: Normal Throat: Normal Respiratory: Diminished Cardiovascular: Tachycardia : Normal Auscultation: Bowel Sounds: Normal Palpation: Normal Tenderness: Normal Skin: Normal Musculoskeletal: Motor Deficit (PARALYSIS OF LOWER EXTREMITIES ) Psychiatric: Normal Mood Description: Calm, Angry Speech Pattern: Clear - Laboratory and Diagnostics Result Diagrams: 05/29/23 05:52 05/29/23 05:52 Labs: 05/27/23 18:13 Blood Blood Culture - Preliminary 05/27/23 18:20 Blood Blood Culture Gram Stain - Final 05/29/23 06:17 Urine,Catheterized Urine Culture - Preliminary 05/27/23 17:34 Buttock Wound Gram Stain - Final 05/27/23 17:34 Buttock Wound Culture - Preliminary Laboratory WBC 3.9 X10^3/uL (3.6-10.0) 05/29/23 05:52 RBC 2.52 X10^6/uL (3.5-5.4) L 05/29/23 05:52 Hgb 4.2 g/dL (12.0-16.0) L* 05/29/23 05:52 Hct 15.2 % (36.0-47.0) L* 05/29/23 05:52 MCV 60.3 fL (80.0-100.0) L 05/29/23 05:52 MCH 16.8 pg (27.0-34.0) L 05/29/23 05:52 MCHC 27.8 g/dL (33.0-35.0) L 05/29/23 05:52 RDW 24.1 % (11.6-16.5) H 05/29/23 05:52 Plt Count 233 X10^3/uL (150.0-450.0) 05/29/23 05:52 Plt Count Comment Adequate (ADEQUATE) 05/29/23 05:52 MPV 8.9 fL (7.4-11.0) 05/29/23 05:52 Neut % (Auto) 55.0 % (42.0-75.0) 05/29/23 05:52 Lymph % (Auto) 38.3 % (21.0-51.0) 05/29/23 05:52 [place] % (Auto) 5.5 % (0.0-13.0) 05/29/23 05:52 Eos % (Auto) 0.4 % (0.9-2.9) L 05/29/23 05:52 Baso % (Auto) 0.8 % (0.2-1.0) 05/29/23 05:52 Neut # (Auto) 2.1 x10^3/uL (2.2-4.8) L 05/29/23 05:52 Lymph # (Auto) 1.5 X10^3/uL (1.3-2.9) 05/29/23 05:52 [place] # (Auto) 0.2 x10^3/uL (0.3-0.8) L 05/29/23 05:52 Eos # (Auto) 0.0 x10^3/uL (0.0-0.2) 05/29/23 05:52 Baso # (Auto) 0.0 X10^3/uL (0.0-0.1) 05/29/23 05:52 Absolute Nucleated RBC 0.0 /100WBC 05/29/23 05:52 Plt Morphology Comment Normal (NORMAL) 05/29/23 05:52 RBC Morphology Abnormal (NORMAL) A 05/29/23 05:52 Hypochromasia 3+ A 05/29/23 05:52 Poikilocytosis 2+ A 05/28/23 06:41 Anisocytosis 3+ A 05/29/23 05:52 Microcytosis 2+ A 05/29/23 05:52 Target Cells Slight A 05/28/23 06:41 Tear Drop Cells Slight A 05/29/23 05:52 Ovalocytes 1+ A 05/29/23 05:52 Stomatocytes Slight A 05/29/23 05:52 Schistocytes Slight A 05/28/23 06:41 Sodium 144 mmol/L (136-145) 05/29/23 05:52 Corrected Sodium TNP 05/29/23 05:52 Potassium 3.3 mmol/L (3.5-5.1) L 05/29/23 05:52 Chloride 112 mmol/L (98-107) H 05/29/23 05:52 Carbon Dioxide 24.2 mmol/L (21-32) 05/29/23 05:52 BUN 6 mg/dL (7-18) L 05/29/23 05:52 Creatinine 0.52 mg/dL (0.55-1.02) L 05/29/23 05:52 Est GFR (MDRD) Af Amer > 60 (>60) 05/29/23 05:52 Est GFR (MDRD) Non-Af > 60 (>60) 05/29/23 05:52 Glucose 99 mg/dL (65-99) 05/29/23 05:52 POC Glucose (mg/dL) 83 mg/dL (65-99) 05/28/23 05:29 Calcium 7.0 mg/dL (8.5-10.1) L 05/29/23 05:52 Corrected Calcium 8.8 mg/dL (8.5-10.1) 05/29/23 05:52 Magnesium 2.0 mg/dL (2.0-2.9) 05/29/23 05:52 Iron 10 ug/dL (50-175) L 05/27/23 18:53 Total Bilirubin 0.10 mg/dL (0.2-1.0) L 05/29/23 05:52 AST 8 Units/L (15-37) L 05/29/23 05:52 ALT < 6 Units/L (12-78) L 05/29/23 05:52 Alkaline Phosphatase 94 Units/L (46-116) 05/29/23 05:52 Total Protein 4.8 g/dL (6.4-8.2) L 05/29/23 05:52 Albumin 1.8 g/dL (3.4-5.0) L 05/29/23 05:52 Globulin 3.0 g/dL (2.5-4.5) 05/29/23 05:52 Albumin/Globulin Ratio 0.6 Ratio (1.1-2.1) L 05/29/23 05:52 Vitamin B12 160 pg/mL (193-986) L 05/27/23 18:53 Folate 5.9 ng/mL (>8.6) L 05/27/23 18:53 Specimen Type Catherized urine 05/29/23 06:17 Urine Color Yellow (YELLOW) 05/29/23 06:17 Urine Appearance Hazy (CLEAR) 05/29/23 06:17 Urine pH 6.0 (5.0 - 8.0) 05/29/23 06:17 Ur Specific [place] 1.015 (1.000-1.030) 05/29/23 06:17 Urine Protein 3+ (NEGATIVE) 05/29/23 06:17 Urine Glucose (UA) Negative (NEGATIVE) 05/29/23 06:17 Urine Ketones Negative (NEGATIVE) 05/29/23 06:17 Urine Blood 4+ (NEGATIVE) 05/29/23 06:17 Urine Nitrite Negative (NEGATIVE) 05/29/23 06:17 Urine Bilirubin Negative (NEGATIVE) 05/29/23 06:17 Urine Urobilinogen Normal (NORMAL) 05/29/23 06:17 Ur Leukocyte Esterase 3+ (NEGATIVE) 05/29/23 06:17 Urine RBC 0-2 /HPF (0-3) 05/29/23 06:17 Urine WBC Tntc /HPF (0-5) A 05/29/23 06:17 Ur Squamous Epith Cells Rare /HPF (NEGATIVE) 05/29/23 06:17 Amorphous Sediment 1+ /HPF (NEGATIVE) 05/29/23 06:17 Urine Bacteria 1+ /HPF (NEGATIVE) 05/29/23 06:17 Urine Mucus Few /HPF (NEGATIVE) 05/29/23 06:17 Ur Culture Indicated? Yes/culture set up 05/29/23 06:17 Blood Type O NEGATIVE 05/27/23 20:22 Antibody Screen Positive 05/27/23 20:22 Antibody Identification Anti-C Anti-D Anti-G Anti-V 05/27/23 20:22 Antibody Identification Anti-C Anti-D Anti-G Anti-V 05/27/23 20:22 Antibody Identification Anti-C Anti-D Anti-G Anti-V 05/27/23 20:22 Antibody Identification Anti-C Anti-D Anti-G Anti-V 05/27/23 20:22 Crossmatch See Detail 05/27/23 20:22 - Plan (1) Sepsis Status: Acute Qualifiers: Sepsis type: sepsis due to unspecified organism Sepsis acute organ dysfunction status: unspecified Qualified Code(s): A41.9 - Sepsis, unspecified organism Plan: WOUND CARE, CULTURES PENDING, NORMAL SALINE AT 75 ML/HR, CIPRO 400MG IV Q12H, FORTAZ 1G IV Q8H, PROTONIX 40MG IV BID, PHENERGAN 25MG IM Q6H PRN, ZOFRAN 4MG PO Q8H PRN, PEPCID 20MG IV Q12H. RESUME HOME MEDS (2) Infected stasis ulcer of right lower extremity Status: Acute (3) Anemia Status: Acute Qualifiers: Anemia type: unspecified type Qualified Code(s): D64.9 - Anemia, unspecified (4) Anxiety Status: Chronic (5) Hypothyroidism Status: Chronic Qualifiers: Hypothyroidism type: acquired Qualified Code(s): E03.9 - Hypothyroidism, unspecified (6) MDD (major depressive disorder) Status: Chronic Qualifiers: Major depression recurrence: recurrent Active/Remission status: currently active Major depression episode severity: unspecified Qualified Code(s): F33.9 - Major depressive disorder, recurrent, unspecified (7) Lower extremity paralysis Status: Chronic Qualifiers: Monoplegia etiology: unspecified etiology Monoplegia laterality: unspecified laterality Qualified Code(s): G83.10 - Monoplegia of lower limb affecting unspecified side
[2023-05-29] MEDS: DESYREL PO SCH (21:43)
[2023-05-29] MEDS ORDERED: STERILE WATER IRRIGATION IR ONE (23:33)
[2023-05-29 23:38] LABS: HEMATOCRIT 25.4 % (36.0-47.0); HEMOGLOBIN 7.6 g/dL (12.0-16.0)
[2023-05-30 05:20] LABS: BASOPHILS % (AUTO) 0.5 % (0.2-1.0); EOSINOPHILS # (AUTO) 0.1 x10^3/uL (0.0-0.2); HEMATOCRIT 24.3 % (36.0-47.0); HEMOGLOBIN 7.5 g/dL (12.0-16.0); LYMPHOCYTES # (AUTO) 1.8 X10^3/uL (1.3-2.9); LYMPHOCYTES % (AUTO) 30.1 % (21.0-51.0); MEAN CORPUSCULAR HEMOGLOBIN 21.5 pg (27.0-34.0); MEAN CORPUSCULAR HGB CONC 30.7 g/dL (33.0-35.0); MEAN CORPUSCULAR VOLUME 70.2 fL (80.0-100.0); MEAN PLATELET VOLUME 9.2 fL (7.4-11.0); MONOCYTES # (AUTO) 0.5 x10^3/uL (0.3-0.8); MONOCYTES % (AUTO) 7.4 % (0.0-13.0); NEUTROPHILS # (AUTO) 3.7 x10^3/uL (2.2-4.8); PLATELET COUNT 249 X10^3/uL (150.0-450.0); RED BLOOD COUNT 3.46 X10^6/uL (3.5-5.4); RED CELL DISTRIBUTION WIDTH 31.1 % (11.6-16.5); WHITE BLOOD COUNT 6.1 X10^3/uL (3.6-10.0)
[2023-05-30] MEDS: FORTAZ or TAZICEF VIAL INJ 1 G in NS 100 ML IV 100 ML IV SCH ×3 (05:21→21:48)
[2023-05-30 05:31] LABS: ALANINE AMINOTRANSFERASE < 6 Units/L (12-78); ALKALINE PHOSPHATASE 105 Units/L (46-116); ASPARTATE AMINO TRANSFERASE 7 Units/L (15-37); BLOOD UREA NITROGEN 7 mg/dL (7-18); CALCIUM 7.2 mg/dL (8.5-10.1); CARBON DIOXIDE 24.1 mmol/L (21-32); CHLORIDE 112 mmol/L (98-107); COR CA(FOR HYPOALB) 8.8 mg/dL (8.5-10.1); CREATININE 0.59 mg/dL (0.55-1.02); GLUCOSE 101 mg/dL (65-99); POTASSIUM 3.5 mmol/L (3.5-5.1); SODIUM 144 mmol/L (136-145); TOTAL PROTEIN 5.2 g/dL (6.4-8.2); eGFR NON BLACK RACES > 60 (>60)
[2023-05-30 05:48] LABS: PLATELET MORPHOLOGY COMMENT NORMAL (NORMAL)
[2023-05-30 05:49] LABS: ANISOCYTOSIS 3+; HYPOCHROMASIA 2+; MICROCYTOSIS SLIGHT; OVALOCYTES PRESENT; POIKILOCYTOSIS PRESENT; STOMATOCYTES PRESENT; TEAR DROP CELLS PRESENT
[2023-05-30] MEDS ORDERED: CONSULT PHARMACY - POTASSIUM & MAGNESIUM XX SCH (07:00)
[2023-05-30] MEDS ORDERED: K-DUR TAB 20 MEQ PO SCH (09:00)
[2023-05-30] MEDS: NEURONTIN CAP 300 MG PO SCH ×2 (09:14→21:47)
[2023-05-30] MEDS: WELLBUTRIN XL 300 MG (DAILY) PO SCH (09:14)
[2023-05-30] MEDS: PROTONIX INJ 40 MG VIAL IVP SCH ×2 (09:15→21:48)
[2023-05-30] MEDS: MAG-OX TAB PO SCH ×2 (09:15→10:30)
[2023-05-30] MEDS: BUSPAR PO SCH ×2 (09:15→21:47)
[2023-05-30] MEDS: PEPCID 20 MG VIAL 20 MG in NS 50 ML IV 50 ML IV SCH ×2 (09:15→21:47)
[2023-05-30] MEDS: DIFLUNISAL 500 MG PO SCH (09:16)
[2023-05-30] MEDS: PATIENT'S HOME MEDICATION PO SCH ×2 (09:16→21:51)
[2023-05-30] MEDS: TAPENTADOL 50 MG PO SCH ×2 (09:16→21:51)
[2023-05-30] MEDS: CIPRO IV 400 MG PREMIX* 400 MG/200 ML IV.SOLN. IV SCH ×2 (09:16→21:49)
[2023-05-30] MEDS: PHENERGAN INJ 25 MG IM PRN ×2 (09:17→17:47)
[2023-05-30] MEDS: NS 1,000 ML IV 1,000 ML IV SCH ×2 (11:40→17:47)
[2023-05-30] MEDS ORDERED: NS 250 ML IV 250 ML IV ONE ×3 (12:21→21:58)
[2023-05-30] MEDS: MORPHINE SULFATE INJ 2 MG INJ IVP PRN (16:48)
--- NOTE | 2023-05-30 19:40 | PCM.PROG ---
Progress Note - Progress Note for Day of Date of Exam: 05/30/23 - Subjective Subjective: IS CURRENTLY INPATIENT STATUS FOR TREATMENT OF SEPSIS, NON- HEALING ULCERS OF THE RIGHT BUTTOCK/HIP AND THIGH, AND ANEMIA. HER PMH INCLUDES: LOWER EXTREMITY PARALYSIS, GERD, HIATAL HERNIA, CONSTIPATION, CHRONIC DIARRHEA, CHRONIC UTIs, ENDOMETRIOSIS, ARHTRITIS, CHRONIC LOW BACK PAIN, HYPOTHYROIDISM, ANEMIA, ANXIETY, DEPRESSION, BIPOLAR DISORDER, AND CHOLECYSTECTOMY. SHE IS STATUS POST DEBRIDEMENT OF WOUNDS TO THE RIGHT UPPER BUTTOCK/HIP AND THIGH. SHE HAS RECEIVED TWO UNITS OF PACKED RED BLOOD CELLS SINCE ADMISSION. TODAY, SHE IS ALERT AND ORIENTED, LYING IN BED UPON MORNING ROUDNS. SHE CONTINUE TO COMPLAIN OF GENERALIZED WEAKNESS TODAY. SHE ALSO COMPLAINS OF LOW BACK PAIN. ON E XAMINATION, SHE IS TACHYCARDIC WITH HR 110-120 BPM. BILATERAL LUNGS ARE NOTED WITH DIMINISHED LUNG SOUNDS THROUGHOUT. ABDOMEN IS ROUND, SOFT, AND NON-TENDER WITH NORMAL BOWEL SOUNDS NOTED IN ALL QUADRANTS. GOOD RANGE OF MOTION NOTED TO UPPER EXTREMITIES. ATROPHY OF MUSCLES NOTED TO LOWER EXTREMITIES. DRESSINGS NOTED TO ALL WOUNDS. HER VITALS THIS MORNING ARE: 99.0-113-20-99%-100/51. LABS WERE OBTAINED. WBC 6.1, RBC 3.46, HGB 7.5, HCT 24.3, PLT COUNT 249, SODIUM 144, POTASSIUM 3.5, CHLORIDE 112, BUN 7, CREATININE 0.59, GLUCOSE 101, CALCIUM 7.2, MAGNESIUM 1.8, AST 7, ALT <6, ALK PHOS 105, TOTAL PROTEIN 5.2, ALBUMIN 2.0. URINE CULTURE WAS SET UP. URINE AND BLOOD CULTURES ARE PENDING. PRELIMINARY BLOOD CULTURES ARE POSITIVE FOR COAGULASE NEGATIVE STAPH. WOUND CULTURES ARE POSITIVE FOR PROVIDENCIA STUARTII AND E.COLI. SHE IS CURRENTLY RECEIVING: NORMAL SALINE AT 75 ML/HR, CIPRO 400MG IV Q12H, FORTAZ 1G IV Q8H, PROTONIX 40MG IV BID, PHENERGAN 25MG IM Q6H PRN, ZOFRAN 4MG PO Q8H PRN, PEPCID 20MG IV Q12H. HER HOME MEDICTATONS OF BUPROPION, BUSPIRONE, NEURONTIN, VISTARIL, SEROQUEL, DESYREL, N UCYNTA, AND DIFLUNISAL. WE ARE WAITING FOR MORE PACKED RED BLOOD CELLS TO BECOME AVAILABLE. WE WILL TRANSFUSE THESE WHEN THEY ARE IN. WILL CONTINUE TO MONITOR HER WOUNDS. OTHERWISE, WE PLAN TO FOLLOW UP WITH AM LABS AND CONTINUE TO MONITOR. TIME SPENT ON CLINICAL ASSESSMENT, REVIEWING LABS AND IMAGING, DECISION MAKING, AND DOCUMENTATION GREATER THAN 45 MINUTES. - Past Medical Family Social History Past Med/Fam/Surg Hx: No changes since H&P Allergies: Allergies latex Allergy (Unknown, Verified 05/27/23 17:43) Latex, Natural Rubber Allergy (Verified 05/27/23 17:43) - Review of Systems ROS: No change since H&P - Vital Signs and I&O's Vital Signs: Vital Signs Temperature 98.7 F Temperature 98.2 F Pulse Rate [Right Brachial] 108 Pulse Rate [Right Brachial] 101 Respiratory Rate 20 Respiratory Rate 20 Respiratory Rate 20 Respiratory Rate 20 Blood Pressure [Right Arm] 128/56 Blood Pressure [Right Arm] 122/57 O2 Sat by Pulse Oximetry 99 O2 Sat by Pulse Oximetry 96 Intake and Output: Intake & Output 05/28/23 05/29/23 05/30/23 05/31/23 11:59 11:59 11:59 11:59 Intake Total 1710 / 1710 3073 / 3073 2557 / 2557 1420 / 1420 Output Total 1100 / 1100 350 / 350 550 / 550 Balance 610 / 610 2723 / 2723 2006 1420 / 1420 - Physical Exam Oriented: Normal Eyes: Normal Ear: Normal Nose: Normal Throat: Normal Respiratory: Diminished Cardiovascular: Tachycardia : Normal Auscultation: Bowel Sounds: Normal Palpation: Normal Tenderness: Normal Skin: Wound (RIGHT BUTTOCK/HIP) Musculoskeletal: Motor Deficit (PARALYSIS OF LOWER EXTREMITIES ) Psychiatric: Normal Mood Description: Calm, Angry Speech Pattern: Clear - Laboratory and Diagnostics Result Diagrams: 05/30/23 04:30 05/30/23 04:30 Labs: 05/27/23 17:34 Buttock Wound Gram Stain - Final 05/27/23 17:34 Buttock Wound Culture - Final Providencia Stuartii Escherichia Coli 05/29/23 06:17 Urine,Catheterized Urine Culture - Final 05/27/23 18:20 Blood Blood Culture Gram Stain - Final 05/27/23 18:20 Blood Blood Culture - Preliminary 05/27/23 18:13 Blood Blood Culture - Preliminary Laboratory WBC 6.1 X10^3/uL (3.6-10.0) 05/30/23 04:30 RBC 3.46 X10^6/uL (3.5-5.4) L 05/30/23 04:30 Hgb 7.5 g/dL (12.0-16.0) L 05/30/23 04:30 Hct 24.3 % (36.0-47.0) L 05/30/23 04:30 MCV 70.2 fL (80.0-100.0) L 05/30/23 04:30 MCH 21.5 pg (27.0-34.0) L 05/30/23 04:30 MCHC 30.7 g/dL (33.0-35.0) L 05/30/23 04:30 RDW 31.1 % (11.6-16.5) H 05/30/23 04:30 Plt Count 249 X10^3/uL (150.0-450.0) 05/30/23 04:30 Plt Count Comment Adequate (ADEQUATE) 05/30/23 04:30 MPV 9.2 fL (7.4-11.0) 05/30/23 04:30 Neut % (Auto) 61.0 % (42.0-75.0) 05/30/23 04:30 Lymph % (Auto) 30.1 % (21.0-51.0) 05/30/23 04:30 [place] % (Auto) 7.4 % (0.0-13.0) 05/30/23 04:30 Eos % (Auto) 1.0 % (0.9-2.9) 05/30/23 04:30 Baso % (Auto) 0.5 % (0.2-1.0) 05/30/23 04:30 Neut # (Auto) 3.7 x10^3/uL (2.2-4.8) 05/30/23 04:30 Lymph # (Auto) 1.8 X10^3/uL (1.3-2.9) 05/30/23 04:30 [place] # (Auto) 0.5 x10^3/uL (0.3-0.8) 05/30/23 04:30 Eos # (Auto) 0.1 x10^3/uL (0.0-0.2) 05/30/23 04:30 Baso # (Auto) 0.0 X10^3/uL (0.0-0.1) 05/30/23 04:30 Absolute Nucleated RBC 0.1 /100WBC 05/30/23 04:30 Plt Morphology Comment Normal (NORMAL) 05/30/23 04:30 RBC Morphology Abnormal (NORMAL) A 05/30/23 04:30 Dimorphic RBCs Present 05/30/23 04:30 Hypochromasia 2+ A 05/30/23 04:30 Poikilocytosis Present 05/30/23 04:30 Anisocytosis 3+ A 05/30/23 04:30 Microcytosis Slight A 05/30/23 04:30 Target Cells Slight A 05/28/23 06:41 Tear Drop Cells Present 05/30/23 04:30 Ovalocytes Present 05/30/23 04:30 Stomatocytes Present 05/30/23 04:30 Schistocytes Slight A 05/28/23 06:41 Sodium 144 mmol/L (136-145) 05/30/23 04:30 Corrected Sodium TNP 05/30/23 04:30 Potassium 3.5 mmol/L (3.5-5.1) 05/30/23 04:30 Chloride 112 mmol/L (98-107) H 05/30/23 04:30 Carbon Dioxide 24.1 mmol/L (21-32) 05/30/23 04:30 BUN 7 mg/dL (7-18) 05/30/23 04:30 Creatinine 0.59 mg/dL (0.55-1.02) 05/30/23 04:30 Est GFR (MDRD) Af Amer > 60 (>60) 05/30/23 04:30 Est GFR (MDRD) Non-Af > 60 (>60) 05/30/23 04:30 Glucose 101 mg/dL (65-99) H 05/30/23 04:30 POC Glucose (mg/dL) 83 mg/dL (65-99) 05/28/23 05:29 Calcium 7.2 mg/dL (8.5-10.1) L 05/30/23 04:30 Corrected Calcium 8.8 mg/dL (8.5-10.1) 05/30/23 04:30 Magnesium 1.8 mg/dL (2.0-2.9) L 05/30/23 04:30 Iron 10 ug/dL (50-175) L 05/27/23 18:53 Total Bilirubin 0.30 mg/dL (0.2-1.0) 05/30/23 04:30 AST 7 Units/L (15-37) L 05/30/23 04:30 ALT < 6 Units/L (12-78) L 05/30/23 04:30 Alkaline Phosphatase 105 Units/L (46-116) 05/30/23 04:30 Total Protein 5.2 g/dL (6.4-8.2) L 05/30/23 04:30 Albumin 2.0 g/dL (3.4-5.0) L 05/30/23 04:30 Globulin 3.2 g/dL (2.5-4.5) 05/30/23 04:30 Albumin/Globulin Ratio 0.6 Ratio (1.1-2.1) L 05/30/23 04:30 Vitamin B12 160 pg/mL (193-986) L 05/27/23 18:53 Folate 5.9 ng/mL (>8.6) L 05/27/23 18:53 Specimen Type Catherized urine 05/29/23 06:17 Urine Color Yellow (YELLOW) 05/29/23 06:17 Urine Appearance Hazy (CLEAR) 05/29/23 06:17 Urine pH 6.0 (5.0 - 8.0) 05/29/23 06:17 Ur Specific [place] 1.015 (1.000-1.030) 05/29/23 06:17 Urine Protein 3+ (NEGATIVE) 05/29/23 06:17 Urine Glucose (UA) Negative (NEGATIVE) 05/29/23 06:17 Urine Ketones Negative (NEGATIVE) 05/29/23 06:17 Urine Blood 4+ (NEGATIVE) 05/29/23 06:17 Urine Nitrite Negative (NEGATIVE) 05/29/23 06:17 Urine Bilirubin Negative (NEGATIVE) 05/29/23 06:17 Urine Urobilinogen Normal (NORMAL) 05/29/23 06:17 Ur Leukocyte Esterase 3+ (NEGATIVE) 05/29/23 06:17 Urine RBC 0-2 /HPF (0-3) 05/29/23 06:17 Urine WBC Tntc /HPF (0-5) A 05/29/23 06:17 Ur Squamous Epith Cells Rare /HPF (NEGATIVE) 05/29/23 06:17 Amorphous Sediment 1+ /HPF (NEGATIVE) 05/29/23 06:17 Urine Bacteria 1+ /HPF (NEGATIVE) 05/29/23 06:17 Urine Mucus Few /HPF (NEGATIVE) 05/29/23 06:17 Ur Culture Indicated? Yes/culture set up 05/29/23 06:17 Blood Type O NEGATIVE 05/27/23 20:22 Antibody Screen Positive 05/27/23 20:22 Antibody Identification Anti-C Anti-D Anti-G Anti-V 05/27/23 20:22 Antibody Identification Anti-C Anti-D Anti-G Anti-V 05/27/23 20:22 Antibody Identification Anti-C Anti-D Anti-G Anti-V 05/27/23 20:22 Antibody Identification Anti-C Anti-D Anti-G Anti-V 05/27/23 20:22 Crossmatch See Detail 05/27/23 20:22 - Plan (1) Sepsis Status: Acute Qualifiers: Sepsis type: sepsis due to unspecified organism Sepsis acute organ dysfunction status: unspecified Qualified Code(s): A41.9 - Sepsis, unspecified organism Plan: WOUND CARE, CULTURES PENDING, NORMAL SALINE AT 75 ML/HR, CIPRO 400MG IV Q12H, FORTAZ 1G IV Q8H, PROTONIX 40MG IV BID, PHENERGAN 25MG IM Q6H PRN, ZOFRAN 4MG PO Q8H PRN, PEPCID 20MG IV Q12H. RESUME HOME MEDS (2) Infected stasis ulcer of right lower extremity Status: Acute (3) Anemia Status: Acute Qualifiers: Anemia type: unspecified type Qualified Code(s): D64.9 - Anemia, unspecified (4) Anxiety Status: Chronic (5) Hypothyroidism Status: Chronic Qualifiers: Hypothyroidism type: acquired Qualified Code(s): E03.9 - Hypothyroidism, unspecified (6) MDD (major depressive disorder) Status: Chronic Qualifiers: Major depression recurrence: recurrent Active/Remission status: currently active Major depression episode severity: unspecified Qualified Code(s): F33.9 - Major depressive disorder, recurrent, unspecified (7) Lower extremity paralysis Status: Chronic Qualifiers: Monoplegia etiology: unspecified etiology Monoplegia laterality: unspecified laterality Qualified Code(s): G83.10 - Monoplegia of lower limb affecting unspecified side
[2023-05-30] MEDS: DESYREL PO SCH (21:47)
[2023-05-31 00:51] LABS: HEMATOCRIT 29.6 % (36.0-47.0); HEMOGLOBIN 9.4 g/dL (12.0-16.0)
[2023-05-31] MEDS: FORTAZ or TAZICEF VIAL INJ 1 G in NS 100 ML IV 100 ML IV SCH ×3 (05:20→22:36)
[2023-05-31 05:57] LABS: BASOPHILS # (AUTO) 0.1 X10^3/uL (0.0-0.1); BASOPHILS % (AUTO) 1.4 % (0.2-1.0); EOSINOPHILS # (AUTO) 0.1 x10^3/uL (0.0-0.2); EOSINOPHILS % (AUTO) 1.5 % (0.9-2.9); HEMATOCRIT 29.8 % (36.0-47.0); HEMOGLOBIN 9.4 g/dL (12.0-16.0); LYMPHOCYTES # (AUTO) 1.8 X10^3/uL (1.3-2.9); LYMPHOCYTES % (AUTO) 23.6 % (21.0-51.0); MEAN CORPUSCULAR HEMOGLOBIN 23.2 pg (27.0-34.0); MEAN CORPUSCULAR HGB CONC 31.6 g/dL (33.0-35.0); MEAN CORPUSCULAR VOLUME 73.3 fL (80.0-100.0); MEAN PLATELET VOLUME 8.8 fL (7.4-11.0); MONOCYTES # (AUTO) 0.5 x10^3/uL (0.3-0.8); MONOCYTES % (AUTO) 6.3 % (0.0-13.0); NEUTROPHILS # (AUTO) 5.1 x10^3/uL (2.2-4.8); NEUTROPHILS % (AUTO) 67.2 % (42.0-75.0); PLATELET COUNT 242 X10^3/uL (150.0-450.0); RED BLOOD COUNT 4.07 X10^6/uL (3.5-5.4); RED CELL DISTRIBUTION WIDTH 30.2 % (11.6-16.5); WHITE BLOOD COUNT 7.7 X10^3/uL (3.6-10.0)
[2023-05-31 06:03] LABS: ALANINE AMINOTRANSFERASE < 6 Units/L (12-78); ALBUMIN 1.9 g/dL (3.4-5.0); ALKALINE PHOSPHATASE 93 Units/L (46-116); ASPARTATE AMINO TRANSFERASE < 6 Units/L (15-37); BLOOD UREA NITROGEN 8 mg/dL (7-18); CALCIUM 7.3 mg/dL (8.5-10.1); CARBON DIOXIDE 21.8 mmol/L (21-32); CHLORIDE 112 mmol/L (98-107); CREATININE 0.61 mg/dL (0.55-1.02); GLUCOSE 102 mg/dL (65-99); MAGNESIUM 1.8 mg/dL (2.0-2.9); POTASSIUM 3.8 mmol/L (3.5-5.1); SODIUM 141 mmol/L (136-145); TOTAL PROTEIN 4.8 g/dL (6.4-8.2); eGFR NON BLACK RACES > 60 (>60)
[2023-05-31] MEDS: PHENERGAN INJ 25 MG IM PRN ×2 (06:28→13:46)
[2023-05-31 06:47] LABS: PLATELET MORPHOLOGY COMMENT NORMAL (NORMAL)
[2023-05-31 06:49] LABS: ANISOCYTOSIS 3+; HYPOCHROMASIA 2+; MICROCYTOSIS SLIGHT; POIKILOCYTOSIS SLIGHT
[2023-05-31 06:50] LABS: OVALOCYTES SLIGHT; STOMATOCYTES SLIGHT; TEAR DROP CELLS SLIGHT
[2023-05-31] MEDS ORDERED: CONSULT PHARMACY - POTASSIUM & MAGNESIUM XX SCH (07:00)
[2023-05-31] MEDS ORDERED: K-DUR TAB 20 MEQ PO SCH (09:00)
[2023-05-31] MEDS: NEURONTIN CAP 300 MG PO SCH ×2 (09:32→22:37)
[2023-05-31] MEDS: MAG-OX TAB PO SCH ×2 (09:32→10:54)
[2023-05-31] MEDS: PEPCID 20 MG VIAL 20 MG in NS 50 ML IV 50 ML IV SCH ×2 (09:32→22:36)
[2023-05-31] MEDS: WELLBUTRIN XL 300 MG (DAILY) PO SCH (09:32)
[2023-05-31] MEDS: BUSPAR PO SCH ×2 (09:32→22:36)
[2023-05-31] MEDS: PROTONIX INJ 40 MG VIAL IVP SCH ×2 (09:33→22:36)
[2023-05-31] MEDS: CIPRO IV 400 MG PREMIX* 400 MG/200 ML IV.SOLN. IV SCH ×2 (09:33→22:36)
[2023-05-31] MEDS: MORPHINE SULFATE INJ 2 MG INJ IVP PRN ×2 (09:34→18:01)
[2023-05-31] MEDS: DIFLUNISAL 500 MG PO SCH (09:36)
[2023-05-31] MEDS: TAPENTADOL 50 MG PO SCH ×2 (09:37→22:38)
[2023-05-31] MEDS: PATIENT'S HOME MEDICATION PO SCH ×2 (09:38→22:38)
--- NOTE | 2023-05-31 11:24 | PCM.PROG ---
Progress Note - Progress Note for Day of Date of Exam: 05/31/23 - Subjective Subjective: IS CURRENTLY INPATIENT STATUS FOR TREATMENT OF SEPSIS, NON- HEALING ULCERS OF THE RIGHT BUTTOCK/HIP AND THIGH, AND ANEMIA. HER PMH INCLUDES: LOWER EXTREMITY PARALYSIS, GERD, HIATAL HERNIA, CONSTIPATION, CHRONIC DIARRHEA, CHRONIC UTIs, ENDOMETRIOSIS, ARHTRITIS, CHRONIC LOW BACK PAIN, HYPOTHYROIDISM, ANEMIA, ANXIETY, DEPRESSION, BIPOLAR DISORDER, AND CHOLECYSTECTOMY. SHE IS STATUS POST DEBRIDEMENT OF WOUNDS TO THE RIGHT UPPER BUTTOCK/HIP AND THIGH. SHE HAS RECEIVED FOUR UNITS OF PACKED RED BLOOD CELLS SINCE ADMISSION. TODAY, SHE IS ALERT AND ORIENTED, LYING IN BED UPON MORNING ROUNDS. SHE CONTINUES TO COMPLAIN OF GENERALIZED WEAKNESS TODAY. SHE ALSO COMPLAINS OF LOW BACK PAIN. SHE DOES ADMIT TO SLIGHT IMPROVEMENT IN SYMPTOMS SINCE YESTERDAY. ON EXAMINATION, SHE IS TACHYCARDIC WITH HR 100-110 BPM. BILATERAL LUNGS ARE NOTED WITH DIMINISHED LUNG SOUNDS THROUGHOUT. ABDOMEN IS ROUND, SOFT, AND NON-TENDER WITH NORMAL BOWEL SOUNDS NOTED IN ALL QUADRANTS. GOOD RANGE OF MOTION NOTED TO UPPER EXTREMITIES. ATROPHY OF MUSCLES NOTED TO LOWER EXTREMITIES. DRESSINGS NOTED TO ALL WOUNDS. HER VITALS THIS MORNING ARE: 99.0-105-18-97%-128/59. LABS WERE OBTAINED. WBC 7.7, RBC 4.07, HGB 9.4, HCT 29.8, PLT COUNT 242, SODIUM 141, POTASSIUM 3.8, CHLORIDE 112, BUN 8, CREATININE 0.61, GLUCOSE 102, CALCIUM 7.3, MAGNESIUM 1.8, AST <6, ALT <6, ALK PHOS 93, TOTAL PROTEIN 4.8, ALBUMIN 1.9. URINE CULTURE WAS SET UP. URINE AND BLOOD CULTURES ARE PENDING. WOUND CULTURES ARE POSITIVE FOR PROVIDENCIA STUARTII AND E.COLI. SHE IS CURRENTLY RECEIVING: NORMAL SALINE AT 75 ML/HR, CIPRO 400MG IV Q12H, FORTAZ 1G IV Q8H, PROTONIX 40MG IV BID, PHENERGAN 25MG IM Q6H PRN, ZOFRAN 4MG PO Q8H PRN, PEPCID 20MG IV Q12H. HER HOME MEDICTATONS OF BUPROPION, BUSPIRONE, NEURONTIN, VISTARIL, SEROQUEL, DESYREL, NUC YNTA, AND DIFLUNISAL. WILL CONTINUE TO MONITOR HER WOUNDS. OTHERWISE, WE WILL CONTINUE WITH CURRENT PLAN OF CARE TODAY. WE PLAN TO FOLLOW UP WITH AM LABS AND CONTINUE TO MONITOR. TIME SPENT ON CLINICAL ASSESSMENT, REVIEWING LABS AND IMAGING, DECISION MAKING, AND DOCUMENTATION GREATER THAN 45 MINUTES. - Past Medical Family Social History Past Med/Fam/Surg Hx: No changes since H&P Allergies: Allergies latex Allergy (Unknown, Verified 05/27/23 17:43) Latex, Natural Rubber Allergy (Verified 05/27/23 17:43) - Review of Systems ROS: No change since H&P - Vital Signs and I&O's Vital Signs: Vital Signs Temperature 99.0 F Temperature 99.1 F Pulse Rate [Right Brachial] 105 Pulse Rate [Right Brachial] 95 Respiratory Rate 20 Respiratory Rate 18 Respiratory Rate 20 Blood Pressure [Right Arm] 128/59 Blood Pressure [Right Arm] 124/60 O2 Sat by Pulse Oximetry 97 O2 Sat by Pulse Oximetry 99 Intake and Output: Intake & Output 05/28/23 05/29/23 05/30/23 05/31/23 11:59 11:59 11:59 11:59 Intake Total 1710 / 1710 3073 / 3073 2557 / 2557 2920 / 2920 Output Total 1100 / 1100 350 / 350 550 / 550 250 / 250 Balance 610 / 610 2723 / 2723 2006 2670 / 2670 - Physical Exam Oriented: Normal Eyes: Normal Ear: Normal Nose: Normal Throat: Normal Respiratory: Diminished Cardiovascular: Tachycardia : Normal Auscultation: Bowel Sounds: Normal Palpation: Normal Tenderness: Normal Skin: Wound (RIGHT BUTTOCK/HIP) Musculoskeletal: Motor Deficit (PARALYSIS OF LOWER EXTREMITIES ) Psychiatric: Normal Mood Description: Calm, Angry Speech Pattern: Clear - Laboratory and Diagnostics Result Diagrams: 05/31/23 05:30 05/31/23 05:30 Labs: 05/27/23 18:20 Blood Blood Culture Gram Stain - Final 05/27/23 18:20 Blood Blood Culture - Final 05/27/23 17:34 Buttock Wound Gram Stain - Final 05/27/23 17:34 Buttock Wound Culture - Final Providencia Stuartii Escherichia Coli 05/29/23 06:17 Urine,Catheterized Urine Culture - Final 05/27/23 18:13 Blood Blood Culture - Preliminary Laboratory WBC 7.7 X10^3/uL (3.6-10.0) 05/31/23 05:30 RBC 4.07 X10^6/uL (3.5-5.4) 05/31/23 05:30 Hgb 9.4 g/dL (12.0-16.0) L 05/31/23 05:30 Hct 29.8 % (36.0-47.0) L 05/31/23 05:30 MCV 73.3 fL (80.0-100.0) L 05/31/23 05:30 MCH 23.2 pg (27.0-34.0) L 05/31/23 05:30 MCHC 31.6 g/dL (33.0-35.0) L 05/31/23 05:30 RDW 30.2 % (11.6-16.5) H 05/31/23 05:30 Plt Count 242 X10^3/uL (150.0-450.0) 05/31/23 05:30 Plt Count Comment Adequate (ADEQUATE) 05/31/23 05:30 MPV 8.8 fL (7.4-11.0) 05/31/23 05:30 Neut % (Auto) 67.2 % (42.0-75.0) 05/31/23 05:30 Lymph % (Auto) 23.6 % (21.0-51.0) 05/31/23 05:30 [place] % (Auto) 6.3 % (0.0-13.0) 05/31/23 05:30 Eos % (Auto) 1.5 % (0.9-2.9) 05/31/23 05:30 Baso % (Auto) 1.4 % (0.2-1.0) H 05/31/23 05:30 Neut # (Auto) 5.1 x10^3/uL (2.2-4.8) H 05/31/23 05:30 Lymph # (Auto) 1.8 X10^3/uL (1.3-2.9) 05/31/23 05:30 [place] # (Auto) 0.5 x10^3/uL (0.3-0.8) 05/31/23 05:30 Eos # (Auto) 0.1 x10^3/uL (0.0-0.2) 05/31/23 05:30 Baso # (Auto) 0.1 X10^3/uL (0.0-0.1) 05/31/23 05:30 Absolute Nucleated RBC 0.0 /100WBC 05/31/23 05:30 Total Counted Cancelled 05/31/23 05:30 Neutrophils % (Manual) Cancelled 05/31/23 05:30 Band Neutrophils % Cancelled 05/31/23 05:30 Lymphocytes % (Manual) Cancelled 05/31/23 05:30 Monocytes % (Manual) Cancelled 05/31/23 05:30 Eosinophils % (Manual) Cancelled 05/31/23 05:30 Basophils % (Manual) Cancelled 05/31/23 05:30 Metamyelocytes % Cancelled 05/31/23 05:30 Myelocytes % Cancelled 05/31/23 05:30 Promyelocytes % Cancelled 05/31/23 05:30 Plt Morphology Comment Normal (NORMAL) 05/31/23 05:30 RBC Morphology Abnormal (NORMAL) A 05/31/23 05:30 Dimorphic RBCs Present 05/31/23 05:30 Hypochromasia 2+ A 05/31/23 05:30 Poikilocytosis Slight A 05/31/23 05:30 Anisocytosis 3+ A 05/31/23 05:30 Microcytosis Slight A 05/31/23 05:30 Target Cells Slight A 05/28/23 06:41 Tear Drop Cells Slight A 05/31/23 05:30 Ovalocytes Slight A 05/31/23 05:30 Stomatocytes Slight A 05/31/23 05:30 Schistocytes Slight A 05/28/23 06:41 Sodium 141 mmol/L (136-145) 05/31/23 05:30 Corrected Sodium TNP 05/31/23 05:30 Potassium 3.8 mmol/L (3.5-5.1) 05/31/23 05:30 Chloride 112 mmol/L (98-107) H 05/31/23 05:30 Carbon Dioxide 21.8 mmol/L (21-32) 05/31/23 05:30 BUN 8 mg/dL (7-18) 05/31/23 05:30 Creatinine 0.61 mg/dL (0.55-1.02) 05/31/23 05:30 Est GFR (MDRD) Af Amer > 60 (>60) 05/31/23 05:30 Est GFR (MDRD) Non-Af > 60 (>60) 05/31/23 05:30 Glucose 102 mg/dL (65-99) H 05/31/23 05:30 POC Glucose (mg/dL) 83 mg/dL (65-99) 05/28/23 05:29 Calcium 7.3 mg/dL (8.5-10.1) L 05/31/23 05:30 Corrected Calcium 9.0 mg/dL (8.5-10.1) 05/31/23 05:30 Magnesium 1.8 mg/dL (2.0-2.9) L 05/31/23 05:30 Iron 10 ug/dL (50-175) L 05/27/23 18:53 Total Bilirubin 0.40 mg/dL (0.2-1.0) 05/31/23 05:30 AST < 6 Units/L (15-37) L 05/31/23 05:30 ALT < 6 Units/L (12-78) L 05/31/23 05:30 Alkaline Phosphatase 93 Units/L (46-116) 05/31/23 05:30 Total Protein 4.8 g/dL (6.4-8.2) L 05/31/23 05:30 Albumin 1.9 g/dL (3.4-5.0) L 05/31/23 05:30 Globulin 2.9 g/dL (2.5-4.5) 05/31/23 05:30 Albumin/Globulin Ratio 0.7 Ratio (1.1-2.1) L 05/31/23 05:30 Vitamin B12 160 pg/mL (193-986) L 05/27/23 18:53 Folate 5.9 ng/mL (>8.6) L 05/27/23 18:53 Specimen Type Catherized urine 05/29/23 06:17 Urine Color Yellow (YELLOW) 05/29/23 06:17 Urine Appearance Hazy (CLEAR) 05/29/23 06:17 Urine pH 6.0 (5.0 - 8.0) 05/29/23 06:17 Ur Specific [place] 1.015 (1.000-1.030) 05/29/23 06:17 Urine Protein 3+ (NEGATIVE) 05/29/23 06:17 Urine Glucose (UA) Negative (NEGATIVE) 05/29/23 06:17 Urine Ketones Negative (NEGATIVE) 05/29/23 06:17 Urine Blood 4+ (NEGATIVE) 05/29/23 06:17 Urine Nitrite Negative (NEGATIVE) 05/29/23 06:17 Urine Bilirubin Negative (NEGATIVE) 05/29/23 06:17 Urine Urobilinogen Normal (NORMAL) 05/29/23 06:17 Ur Leukocyte Esterase 3+ (NEGATIVE) 05/29/23 06:17 Urine RBC 0-2 /HPF (0-3) 05/29/23 06:17 Urine WBC Tntc /HPF (0-5) A 05/29/23 06:17 Ur Squamous Epith Cells Rare /HPF (NEGATIVE) 05/29/23 06:17 Amorphous Sediment 1+ /HPF (NEGATIVE) 05/29/23 06:17 Urine Bacteria 1+ /HPF (NEGATIVE) 05/29/23 06:17 Urine Mucus Few /HPF (NEGATIVE) 05/29/23 06:17 Ur Culture Indicated? Yes/culture set up 05/29/23 06:17 Blood Type O NEGATIVE 05/27/23 20:22 Antibody Screen Positive 05/27/23 20:22 Antibody Identification Anti-C Anti-D Anti-G Anti-V 05/27/23 20:22 Antibody Identification Anti-C Anti-D Anti-G Anti-V 05/27/23 20:22 Antibody Identification Anti-C Anti-D Anti-G Anti-V 05/27/23 20:22 Antibody Identification Anti-C Anti-D Anti-G Anti-V 05/27/23 20:22 Crossmatch See Detail 05/27/23 20:22 - Plan (1) Sepsis Status: Acute Qualifiers: Sepsis type: sepsis due to unspecified organism Sepsis acute organ dysfun ction status: unspecified Qualified Code(s): A41.9 - Sepsis, unspecified organism Plan: WOUND CARE, CULTURES PENDING, NORMAL SALINE AT 75 ML/HR, CIPRO 400MG IV Q12H, FORTAZ 1G IV Q8H, PROTONIX 40MG IV BID, PHENERGAN 25MG IM Q6H PRN, ZOFRAN 4MG PO Q8H PRN, PEPCID 20MG IV Q12H. RESUME HOME MEDS (2) Infected stasis ulcer of right lower extremity Status: Acute (3) Anemia Status: Acute Qualifiers: Anemia type: unspecified type Qualified Code(s): D64.9 - Anemia, unspecified (4) Anxiety Status: Chronic (5) Hypothyroidism Status: Chronic Qualifiers: Hypothyroidism type: acquired Qualified Code(s): E03.9 - Hypothyroidism, unspecified (6) MDD (major depressive disorder) Status: Chronic Qualifiers: Major depression recurrence: recurrent Active/Remission status: currently active Major depression episode severity: unspecified Qualified Code(s): F33.9 - Major depressive disorder, recurrent, unspecified (7) Lower extremity paralysis Status: Chronic Qualifiers: Monoplegia etiology: unspecified etiology Monoplegia laterality: unspecified laterality Qualified Code(s): G83.10 - Monoplegia of lower limb affecting unspecified side
[2023-05-31] MEDS: NS 1,000 ML IV 1,000 ML IV SCH ×2 (12:31→22:37)
[2023-05-31] MEDS ORDERED: NS 250 ML IV 250 ML IV ONE ×2 (13:36→18:12)
[2023-05-31] MEDS: DESYREL PO SCH (22:36)
[2023-05-31 23:38] LABS: HEMATOCRIT 37.1 % (36.0-47.0)
[2023-05-31 23:40] LABS: HEMOGLOBIN 11.8 g/dL (12.0-16.0)
[2023-06-01] MEDS: NS 1,000 ML IV 1,000 ML IV SCH ×2 (03:16→12:25)
[2023-06-01] MEDS: PHENERGAN INJ 25 MG IM PRN (05:08)
[2023-06-01] MEDS: FORTAZ or TAZICEF VIAL INJ 1 G in NS 100 ML IV 100 ML IV SCH (05:09)
[2023-06-01 05:10] LABS: EOSINOPHILS # (AUTO) 0.1 x10^3/uL (0.0-0.2); MEAN CORPUSCULAR VOLUME 76.5 fL (80.0-100.0)
[2023-06-01 05:12] LABS: ALANINE AMINOTRANSFERASE 6 Units/L (12-78); ALKALINE PHOSPHATASE 94 Units/L (46-116); ASPARTATE AMINO TRANSFERASE 6 Units/L (15-37); BLOOD UREA NITROGEN 7 mg/dL (7-18); CALCIUM 7.3 mg/dL (8.5-10.1); CARBON DIOXIDE 24.8 mmol/L (21-32); CHLORIDE 112 mmol/L (98-107); COR CA(FOR HYPOALB) 8.9 mg/dL (8.5-10.1); CREATININE 0.59 mg/dL (0.55-1.02); GLUCOSE 101 mg/dL (65-99); MAGNESIUM 1.9 mg/dL (2.0-2.9); POTASSIUM 4.3 mmol/L (3.5-5.1); SODIUM 143 mmol/L (136-145); TOTAL PROTEIN 5.2 g/dL (6.4-8.2); eGFR NON BLACK RACES > 60 (>60)
[2023-06-01 05:13] LABS: BASOPHILS % (AUTO) 0.3 % (0.2-1.0); EOSINOPHILS % (AUTO) 1.4 % (0.9-2.9); HEMOGLOBIN 11.9 g/dL (12.0-16.0); LYMPHOCYTES # (AUTO) 1.9 X10^3/uL (1.3-2.9); LYMPHOCYTES % (AUTO) 23.8 % (21.0-51.0); MEAN CORPUSCULAR HEMOGLOBIN 24.6 pg (27.0-34.0); MEAN CORPUSCULAR HGB CONC 32.2 g/dL (33.0-35.0); MEAN PLATELET VOLUME 8.9 fL (7.4-11.0); MONOCYTES # (AUTO) 0.4 x10^3/uL (0.3-0.8); MONOCYTES % (AUTO) 5.6 % (0.0-13.0); NEUTROPHILS # (AUTO) 5.4 x10^3/uL (2.2-4.8); NEUTROPHILS % (AUTO) 68.9 % (42.0-75.0); PLATELET COUNT 178 X10^3/uL (150.0-450.0); RED BLOOD COUNT 4.83 X10^6/uL (3.5-5.4); RED CELL DISTRIBUTION WIDTH 27.5 % (11.6-16.5); WHITE BLOOD COUNT 7.9 X10^3/uL (3.6-10.0)
[2023-06-01 05:30] LABS: PLATELET MORPHOLOGY COMMENT NORMAL (NORMAL)
[2023-06-01 05:31] LABS: ANISOCYTOSIS 3+; HYPOCHROMASIA SLIGHT; POIKILOCYTOSIS PRESENT
[2023-06-01 05:32] LABS: MICROCYTOSIS SLIGHT; OVALOCYTES PRESENT; SCHISTOCYTES PRESENT; TEAR DROP CELLS PRESENT
[2023-06-01] MEDS ORDERED: CONSULT PHARMACY - POTASSIUM & MAGNESIUM XX SCH (06:00)
[2023-06-01 08:38] VITALS: RESP 20; O2SAT 95
[2023-06-01] MEDS: NEURONTIN CAP 300 MG PO SCH (08:55)
[2023-06-01] MEDS: BUSPAR PO SCH (08:55)
[2023-06-01] MEDS: WELLBUTRIN XL 300 MG (DAILY) PO SCH (08:55)
[2023-06-01] MEDS: PATIENT'S HOME MEDICATION PO SCH (08:56)
[2023-06-01] MEDS: PEPCID 20 MG VIAL 20 MG in NS 50 ML IV 50 ML IV SCH (08:56)
[2023-06-01] MEDS: PROTONIX INJ 40 MG VIAL IVP SCH (08:56)
[2023-06-01] MEDS: DIFLUNISAL 500 MG PO SCH (08:56)
[2023-06-01] MEDS ORDERED: MAG-OX TAB PO SCH (09:00)
[2023-06-01] MEDS: TAPENTADOL 50 MG PO SCH (09:15)
[2023-06-01] MEDS: CIPRO IV 400 MG PREMIX* 400 MG/200 ML IV.SOLN. IV SCH (09:57)
[2023-06-01 11:58] VITALS: BP 115/54; PULSE 107; TEMP 98.2
== END 2023-06-01 11:45 | disposition home health service (06) | DRG 571 ==
LOC: MED/SURG → OBSVTOIN 15:54
PROVIDERS: ADMIT Internal Medicine; ATTEND Internal Medicine
DX: I10 Essential (primary) hypertension; L89.212 Pressure ulcer of right hip, stage 2; F33.8 Other recurrent depressive disorders; L89.892 Pressure ulcer of other site, stage 2; D64.89 Other specified anemias; R78.81 Bacteremia; K21.9 Gastro-esophageal reflux disease without esophagitis; B96.29 Other Escherichia coli [E. coli] as the cause of diseases classified elsewhere; G83.10 Monoplegia of lower limb affecting unspecified side; E03.8 Other specified hypothyroidism; E66.01 Morbid (severe) obesity due to excess calories; B96.89 Other specified bacterial agents as the cause of diseases classified elsewhere; N39.0 Urinary tract infection, site not specified; K44.9 Diaphragmatic hernia without obstruction or gangrene; F41.8 Other specified anxiety disorders; M54.59 Other low back pain; Z87.440 Personal history of urinary (tract) infections; E78.5 Hyperlipidemia, unspecified